=== PATIENT | female | born 1950 | race Two or more races ===

== ENCOUNTER 2021-01-20 11:17 | Emergency (ER) | payer MEDICARE, MEDICAID, SELFPAY ==
[2021-01-20 11:32] VITALS: BP 139/59; PULSE 62; RESP 18; TEMP 36.6; O2SAT 99; BMI 41.1
[2021-01-20 12:26] LABS: MANUAL DIFF FLAG NO
[2021-01-20 12:40] LABS: Basophils Absolute Auto 0.1 X10*3/uL (0.0-0.2); Basophils Percent Auto 0.4 % (0-2); Eosinophils Percent Auto 0.2 % (0-4); Hematocrit 36.6 % (37.0-47.0); Hemoglobin 11.9 g/dl (12.0-16.0); Imm Gran Abs Auto 0.05 X10*3/uL (0.00-0.03); Imm Gran Pct Auto 0.4 % (0.0-0.4); Lymphocytes Absolute Auto 1.7 X10*3/uL (1.2-4.9); Lymphocytes Percent Auto 13.6 % (20-40); Mean Corpuscular HGB Conc 32.5 g/dl (31.0-35.0); Mean Corpuscular Hemoglobin 25.8 pg (27.0-33.0); Mean Corpuscular Volume 79.2 fL (80.0-98.0); Mean Platelet Volume 10.3 fL (9.4-12.3); Monocytes Absolute Auto 0.6 X10*3/uL (0.1-1.2); Monocytes Percent Auto 4.7 % (2-11); Neutrophils Absolute Auto 9.8 x10*3/uL (2.0-8.3); Neutrophils Percent Auto 80.7 % (45-73); Platelet Count 391 X10*3/uL (160-400); Red Blood Count 4.62 X10*6/uL (4.20-5.50); White Blood Count 12.1 X10*3/uL (4.8-10.8)
[2021-01-20] MEDS: 0.9 % Sodium Chloride 1,000 ML 999 ML IVCONT (12:50)
[2021-01-20 12:57] LABS: Alanine Aminotransferase 20 U/L (0-31); Albumin Level 4.4 g/dL (3.5-5.0); Alkaline Phosphatase 147 U/L (39-117); Anion Gap 16 (12-20); Aspartate Amino Transferase 22 U/L (5-31); Bilirubin Total 0.5 mg/dL (0.0-1.0); Blood Urea Nitrogen 6 mg/dL (9-16); Calcium 9.9 mg/dL (8.4-10.2); Carbon Dioxide 23 mmol/L (22-29); Chloride 101 mmol/L (96-108); Estimated Glomerular Filt Rate > 60; Glucose Random 122 mg/dL (60-115); Potassium 4.2 mmol/L (3.3-5.1); Sodium 136 mmol/L (135-145); Total Protein 7.1 g/dL (6.5-8.0)
[2021-01-20 13:03] LABS: Appearance Urine CLEAR; Color Urine YELLOW; Glucose Urine UA NEG (NEG); Leukocyte Esterase Urine NEG (NEG); Nitrite Urine NEG (NEG); Specific Gravity - Urine <= 1.005 (1.005-1.025); Urine Blood NEG (NEG); Urine Ketones NEG (NEG); Urine Protein NEG (NEG-TRACE)
--- NOTE | 2021-01-20 13:31 | ED.FEMALEGU ---
HPI - Female Genitourinary General Chief complaint: Urogenital-Female Stated complaint: urinary infection Time Seen by Provider: 01/20/21 11:44 Source: patient and family Mode of arrival: ambulatory Limitations: language barrier (Citizen Of [place]-speaking) and other (Poor historians) History of Present Illness HPI Narrative: 70-year-old female who is Citizen Of [place]-speaking presenting to the ED with her daughter at bedside with complaints of ?I have a urinary tract infection?. She reports over the past 2 weeks she has had chills, a decreased appetite with decreased p.o. intake and she believes she might have a urinary tract infection. 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 then they sent her home on Macrobid. The daughter at bedside and the patient are very poor historians. She also reports that she was also seen at another hospital and had a full cardiac workup and was discharged because everything was negative. She reports to me that she believes that she might need IV antibiotics for the urinary tract infection that she currently has. She denies any measured fevers, dizziness, changes in vision, chest pain, palpitations, shortness of breath, dyspnea on exertion, orthopnea, abdominal pain, hematuria, back pain, rashes, abnormal vaginal discharge, recent travel sick contacts or any other symptoms complaints or concerns at this time. MD elicited complaint: UTI Related Data Allergies Allergy/AdvReac Type Severity Reaction Status Date / Time No Known Allergies Allergy Verified 01/20/21 11:53 Review of Systems Review of Systems: Constitutional : No Weight loss, No Fever, + Chills, No Night Sweats, No Fatigue, No Malaise ENT/Mouth : No Hearing loss, No Ear Pain, No Nasal Congestion, No Sinus Pain, No Hoarseness, No sore throat, No Rhinorrhea, No Swallowing Difficulty Eyes: No Eye Pain, No Swelling, No Redness, No Foreign Body, No Discharge, No Vision Changes Cardiovascular : No Chest Pain, No SOB, No Dyspnea on Exertion, No Orthopnea, No Edema, No Palpitations Respiratory : No Cough, No Sputum, No Wheezing, No Smoke Exposure, No Dyspnea Gastrointestinal : No Nausea, No Vomiting, No Diarrhea, No Constipation, No abdominal Pain, No Hematochezia, No Melena Genitourinary : + uti, no irregular bleeding, No Dysuria, No Urinary Frequency, No Hematuria, No Urinary Incontinence, No Urgency, No Flank Pain, No Urinary Flow Changes, No Hesitancy Musculoskeletal : No joint pain, No Myalgias, No Joint Swelling Skin : No Skin Lesions, No rash Neuro : + General weakness, No Focal weakness, No Numbness, No Paresthesias, No Loss of Consciousness, No Dizziness, No Headache Psych : No Anxiety/Panic, No Depression, No SI/HI/AH/VH, No Social Issues, Heme/Lymph: No Bruising, No Bleeding,No Lymphadenopathy Endocrine : No Polyuria, No Polydipsia, No Temperature Intolerance Yes all other systems are reviewed and are negative [facility] Past Medical History Attestation statement: The following information was validated with the patient. Social History Social History Advance Directives: No Advance Directives Information Provided: Yes Physical Exam Vital Signs: Vital Signs: Last Vital Signs Temp 97.8 F 01/20/21 11:32 Pulse 62 01/20/21 11:32 Resp 18 01/20/21 11:32 BP 139/59 L 01/20/21 11:32 Pulse Ox 99 01/20/21 11:32 Body Mass Index 41.1 vital signs have been reviewed as normal and appeared to be correct. Blood pressure 139/59. Heart rate normal. Respiration rate normal. Temperature normal. Oxygen saturation normal. Appearance: Alert. Oriented X3. No acute distress. Head: Normal external exam. Normocephalic. Atraumatic. Eyes: PERRLA. EOMI. Conjunctiva and sclera normal. Eyelids normal. ENT: Pharynx normal. Uvula midline. Moist mucous membranes. No trismus noted. No drooling noted. No muffled voice noted. Neck: Normal inspection. Neck supple. FROM. No adenopathy. Thyroid Normal. No meningeal signs. No neck mass noted. CVS: Normal heart rate and rhythm. Heart sound normal. Pulses normal throughout. No murmurs/rales/gallops. Respiratory: No respiratory distress. Painless inspiration. Breath sounds normal. No wheezes/rales/rhonchi noted. Chest nontender. No accessory muscle usage noted or decreased air movement noted. Abdomen: Soft and nontender. Bowel sounds normal in all 4 quadrants. No distention noted. No organomegaly noted. No visible injury noted. Back: No CVA tenderness. Full range of motion noted. No rashes/lesion/induration/fluctuance or signs of infection noted. Skin: Skin warm and dry. Normal skin color. Normal skin turgor. No rashes/lesions/lacerations noted. Extremities: Extremities exhibit normal range of motion. Extremities nontender. Neuro: Oriented X 3. No motor deficit. No sensory deficit. Reflexes normal. Normal steady gait. No focal neuro deficits noted. Vascular: + radial pulses Normal cap refill. No cyanosis noted to upper extremity nails Course Course Course Narrative: 12:15pm - 70-year-old female who is Citizen Of [place]-speaking presenting to the ED with her daughter at bedside with complaints of ?I have a urinary tract infection?. She reports over the past 2 weeks she has had chills, a decreased appetite with decreased p.o. intake and she believes she might have a urinary tract infection. 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 then they sent her home on Macrobid. The daughter at bedside and the patient are very poor historians. She also reports that she was also seen at another hospital and had a full cardiac workup and was discharged because everything was negative. She reports to me that she believes that she might need IV antibiotics for the urinary tract infection that she currently has. Plan: Will obtain labs, UA and a CT scan abdomen and pelvis with IV contrast and provide a L of IV fluids and re-evaluate. Reevaluation(s) Reevaluation #1: - labs obtained and patient with an elevated white blood cell count at 12,000. Mild anemia. BUN 6. Random glucose 122. Alkaline phosphate 147. Otherwise all other labs are within normal limits. UA is completely clean no evidence of UTI. - during the visit here to the patient and daughter requested to see me again so I can speak to the daughters friend who is a pediatrician/medical doctor and I got on the phone and the pediatrician/medical doctor Dr. Hendrix explained to me that she believed that the patient had sepsis because she was having chills and was currently on antibiotics for UTI and she believes that the patient needed to receive IV antibiotics. She also started to say that the patient was telling her she was having dizziness/palpitations and chest pain although the patient was screaming in the background that she never told anyone that she was having dizziness, palpitations or chest pain. So I explained to the daughter that I did not feel comfortable continue talking to this pediatrician/medical doctor when she is not caring for her mother and she is telling me completely different symptoms that the patient is denying in front of myself and the daughter. - then I showed all the results to the daughter and the patient and I explained to him that she has an elevated white blood cell count that is nonspecific that she has mild anemia which could be nonspecific. All her other labs were normal and she does not have an evidence of UTI - then the mother reported that she is unsure why she is having the symptoms I explained to her that if she went to 3 other hospitals and they told her at the 2 other hospitals that everything else was normal and she needs to follow up with her primary care provider for further evaluation treatment. I explained to her that there is no evidence of UTI therefore I do not believe she needs to take the antibiotics but that would be up to her discretion. I explained to her that we are still waiting for her to have a CT scan of her abdomen and the mother reported to me that she is unsure why she is even having the CT scan of her abdomen and she is not even having abdominal pain I explained to her that she told them in triage she was having abdominal pain and she told me that she never told them that therefore at this time they are requesting for the CT scan to be canceled and to be discharged. I explained to her to return if any new or worsening symptoms to follow up her primary care provider. Patient and daughter at bedside understand and agree this plan. Time: 13:38 MDM - Female Genitourinary Medical Records Attestation: I reviewed the patient's medical records. Lab Data Attestation: I reviewed the patient's lab results. Result diagrams: 01/20/21 12:15 01/20/21 12:15 Labs: Lab Results 01/20/21 01/20/21 01/20/21 Range/Units 12:15 12:15 12:20 WBC 12.1 H (4.8-10.8) X10*3/uL RBC 4.62 (4.20-5.50) X10*6/uL Hgb 11.9 L (12.0-16.0) g/dl Hct 36.6 L (37.0-47.0) % MCV 79.2 L (80.0-98.0) fL MCH 25.8 L (27.0-33.0) pg MCHC 32.5 (31.0-35.0) g/dl RDW 16.0 (11.0-16.0) % Plt Count 391 (160-400) X10*3/uL MPV 10.3 (9.4-12.3) fL Immature Gran % (Auto) 0.4 (0.0-0.4) % Neut % (Auto) 80.7 H (45-73) % Lymph % (Auto) 13.6 L (20-40) % [place] % (Auto) 4.7 (2-11) % Eos % (Auto) 0.2 (0-4) % Baso % (Auto) 0.4 (0-2) % Lymph # (Auto) 1.7 (1.2-4.9) X10*3/uL [place] # (Auto) 0.6 (0.1-1.2) X10*3/uL Eos # (Auto) 0.0 (0.0-0.4) X10*3/uL Baso # (Auto) 0.1 (0.0-0.2) X10*3/uL Abs Immat Gran (auto) 0.05 H (0.00-0.03) X10*3/uL Absolute Neuts (auto) 9.8 H (2.0-8.3) x10*3/uL Absolute Nucleated RBC 0.000 (0.0-0.012) X10*3/uL Nucleated RBC % (auto) 0.0 (0.0-0.2) /100WBC Sodium 136 (135-145) mmol/L Potassium 4.2 (3.3-5.1) mmol/L Chloride 101 (96-108) mmol/L Carbon Dioxide 23 (22-29) mmol/L Anion Gap 16 (12-20) BUN 6 L (9-16) mg/dL Creatinine 0.79 (0.5-1.4) mg/dL Estim Creat Clear Calc 81.0 Estimated GFR > 60 Random Glucose 122 H (60-115) mg/dL Calcium 9.9 (8.4-10.2) mg/dL Magnesium 2.0 (1.6-2.6) mg/dL Total Bilirubin 0.5 (0.0-1.0) mg/dL AST 22 (5-31) U/L ALT 20 (0-31) U/L Alkaline Phosphatase 147 H (39-117) U/L Total Protein 7.1 (6.5-8.0) g/dL Albumin 4.4 (3.5-5.0) g/dL Urine Color YELLOW Urine Appearance CLEAR Urine pH 6.0 (5.0-8.0) Ur Specific [place] <= 1.005 (1.005-1.025) Urine Protein NEG (NEG-TRACE) MG/DL Urine Glucose (UA) NEG (NEG) MG/DL Urine Ketones NEG (NEG) MG/DL Urine Blood NEG (NEG) Urine Nitrite NEG (NEG) Ur Leukocyte Esterase NEG (NEG) Urine RBC Urine WBC Urine WBC Clumps Ur Squamous Epith Cells Ur Renal Epithelial Cell [place] Biurate Crystals Calcium Carbonate Cryst Calcium Phosphate Cryst Calcium Oxalate Crystal Leucine Crystals Cystine Crystals Uric Acid Crystals Triple Phos Crystals Talc Crystals Tyrosine Crystals Other Crystals Amorphous Sediment Urine Bacteria Epithelial Casts Fatty Casts Hyaline Casts Granular Casts Waxy Casts RBC Casts WBC Casts Other Casts Urine Mucus Urine Trichomonas Urine Yeast Urine Sperm Ur Oval Fat Bodies 01/20/21 Range/Units 12:20 WBC (4.8-10.8) X10*3/uL RBC (4.20-5.50) X10*6/uL Hgb (12.0-16.0) g/dl Hct (37.0-47.0) % MCV (80.0-98.0) fL MCH (27.0-33.0) pg MCHC (31.0-35.0) g/dl RDW (11.0-16.0) % Plt Count (160-400) X10*3/uL MPV (9.4-12.3) fL Immature Gran % (Auto) (0.0-0.4) % Neut % (Auto) (45-73) % Lymph % (Auto) (20-40) % [place] % (Auto) (2-11) % Eos % (Auto) (0-4) % Baso % (Auto) (0-2) % Lymph # (Auto) (1.2-4.9) X10*3/uL [place] # (Auto) (0.1-1.2) X10*3/uL Eos # (Auto) (0.0-0.4) X10*3/uL Baso # (Auto) (0.0-0.2) X10*3/uL Abs Immat Gran (auto) (0.00-0.03) X10*3/uL Absolute Neuts (auto) (2.0-8.3) x10*3/uL Absolute Nucleated RBC (0.0-0.012) X10*3/uL Nucleated RBC % (auto) (0.0-0.2) /100WBC Sodium (135-145) mmol/L Potassium (3.3-5.1) mmol/L Chloride (96-108) mmol/L Carbon Dioxide (22-29) mmol/L Anion Gap (12-20) BUN (9-16) mg/dL Creatinine (0.5-1.4) mg/dL Estim Creat Clear Calc Estimated GFR Random Glucose (60-115) mg/dL Calcium (8.4-10.2) mg/dL Magnesium (1.6-2.6) mg/dL Total Bilirubin (0.0-1.0) mg/dL AST (5-31) U/L ALT (0-31) U/L Alkaline Phosphatase (39-117) U/L Total Protein (6.5-8.0) g/dL Albumin (3.5-5.0) g/dL Urine Color Cancelled Urine Appearance Cancelled Urine pH Cancelled (5.0-8.0) Ur Specific [place] Cancelled (1.005-1.025) Urine Protein Cancelled (NEG-TRACE) MG/DL Urine Glucose (UA) Cancelled (NEG) MG/DL Urine Ketones Cancelled (NEG) MG/DL Urine Blood Cancelled (NEG) Urine Nitrite Cancelled (NEG) Ur Leukocyte Esterase Cancelled (NEG) Urine RBC Cancelled Urine WBC Cancelled Urine WBC Clumps Cancelled Ur Squamous Epith Cells Cancelled Ur Renal Epithelial Cell Cancelled [place] Biurate Crystals Cancelled Calcium Carbonate Cryst Cancelled Calcium Phosphate Cryst Cancelled Calcium Oxalate Crystal Cancelled Leucine Crystals Cancelled Cystine Crystals Cancelled Uric Acid Crystals Cancelled Triple Phos Crystals Cancelled [place] Crystals Cancelled Tyrosine Crystals Cancelled Other Crystals Cancelled Amorphous Sediment Cancelled Urine Bacteria Cancelled Epithelial Casts Cancelled Fatty Casts Cancelled Hyaline Casts Cancelled Granular Casts Cancelled Waxy Casts Cancelled RBC Casts Cancelled WBC Casts Cancelled Other Casts Cancelled Urine Mucus Cancelled Urine Trichomonas Cancelled Urine Yeast Cancelled Urine Sperm Cancelled Ur Oval Fat Bodies Cancelled Critical Care Time Critical Care Time Critical Care Time: Yes Total Critical Care Time: 60 Attestation: I personally attest to this time spent taking care of the patient Discharge Plan Discharge Clinical Impression: Normal exam Patient Disposition: Home, Self-Care Instructions: Normal Exam (ED) Referrals: Physician,Unknown J [Primary Care Provider] - 2 days (your pcp) Print Language: Citizen Of [place]
[2021-01-20 14:42] LABS: WBC Urine 0-2 /HPF (0-4)
[2021-01-20 14:43] LABS: RBC Urine 0 /HPF (0); Squamous Epithelial Cell Urine 1+ /LPF
== END 2021-01-20 13:48 | disposition home or self-care (01) ==
PROVIDERS: Physician Assistant Medical; Emergency Provider Emergency Medicine
DX: R30.0 Dysuria (principal); Z79.899 Other long term (current) drug therapy
CPT/HCPCS: 36415; 80053; 81001; 83735; 85025; 96360; 99284

== ENCOUNTER 2021-09-16 23:28 | Emergency (ER) | payer MEDICARE, MEDICAID, SELFPAY ==
[2021-09-16 23:49] VITALS: BP 133/67; PULSE 65; RESP 15; TEMP 37; O2SAT 99; BMI 40.8
[2021-09-17 00:09] LABS: MANUAL DIFF FLAG NO
[2021-09-17 00:14] LABS: Basophils Percent Auto 0.3 % (0-2); Eosinophils Absolute Auto 0.1 X10*3/uL (0.0-0.4); Eosinophils Percent Auto 0.7 % (0-4); Hematocrit 32.2 % (37.0-47.0); Imm Gran Abs Auto 0.06 X10*3/uL (0.00-0.03); Imm Gran Pct Auto 0.5 % (0.0-0.4); Lymphocytes Absolute Auto 2.3 X10*3/uL (1.2-4.9); Lymphocytes Percent Auto 19.5 % (20-40); Mean Corpuscular HGB Conc 31.1 g/dl (31.0-35.0); Mean Corpuscular Hemoglobin 21.8 pg (27.0-33.0); Mean Corpuscular Volume 70.3 fL (80.0-98.0); Mean Platelet Volume 9.8 fL (9.4-12.3); Monocytes Absolute Auto 0.9 X10*3/uL (0.1-1.2); Monocytes Percent Auto 7.3 % (2-11); Neutrophils Absolute Auto 8.3 x10*3/uL (2.0-8.3); Neutrophils Percent Auto 71.7 % (45-73); Platelet Count 393 X10*3/uL (160-400); Red Blood Count 4.58 X10*6/uL (4.20-5.50); White Blood Count 11.6 X10*3/uL (4.8-10.8)
[2021-09-17 00:21] LABS: COVID-19 Test Negative (Negative)
[2021-09-17 00:22] VITALS: BP 129/74; PULSE 60; RESP 20; TEMP 36.7; O2SAT 99
[2021-09-17 00:28] LABS: Alanine Aminotransferase 18 U/L (0-31); Albumin Level 4.1 g/dL (3.5-5.0); Alkaline Phosphatase 165 U/L (39-117); Anion Gap 13 (12-20); Aspartate Amino Transferase 18 U/L (5-31); Bilirubin Total 0.2 mg/dL (0.0-1.0); Blood Urea Nitrogen 12 mg/dL (9-16); Calcium 8.8 mg/dL (8.4-10.2); Carbon Dioxide 20 mmol/L (22-29); Chloride 100 mmol/L (96-108); Creatinine Clr Calc Pharmacy 81.6; Estimated Glomerular Filt Rate > 60; Glucose Random 109 mg/dL (60-115); Potassium 4.1 mmol/L (3.3-5.1); Sodium 129 mmol/L (135-145); Total Protein 6.7 g/dL (6.5-8.0)
--- NOTE | 2021-09-17 00:37 | ECG_ITS ---
Test Reason : ABDIMINAL PAIN Blood Pressure : / mmHG Vent. Rate : 059 BPM Atrial Rate : 059 BPM P-R Int : 234 ms QRS Dur : 084 ms QT Int : 422 ms P-R-T Axes : 051 002 031 degrees QTc Int : 417 ms Sinus bradycardia with 1st degree A-V block Otherwise normal ECG No previous ECGs available Referred By: Sharon Marsh Electronically Signed By:Jose Armando Diggs
--- NOTE | 2021-09-17 00:40 | ED_ITS ---
HPI - General Adult General Chief complaint: General Medical Stated complaint: fever, dry mouth, high bp, headache Time Seen by Provider: 09/17/21 00:20 Source: patient and family (son is interpreting declined medical laboratory assistant) Mode of arrival: ambulatory Limitations: no limitations History of Present Illness HPI narrative: 70 yo female with hx of HTN, DM, arthritis, depression - here with c/o earlier this evening she had a headache, felt nauseated, she had a dry mouth - she took her medications today. started losartan 50mg BID one week ago. Her BP around 10pm was high 180/100 so she took extra dose of 50mg losartan. She has no headache now but she states one time when she felt like this she was dehydrated and had a dry mouth MD complaint: feels dehydrated, BP high at home - took extra losartan Onset (ago): hour(s) (yesterday evening ) Location: head and mouth Severity: moderate Quality: dull Pain Consistency: now resolved Relieving factors: other (took extra 50mg losartan tonight) Exacerbating factors: none Associated symptoms: other (dry mouth, malaisea, nausea) Treatments prior to arrival: none Related Data Allergies Allergy/AdvReac Type Severity Reaction Status Date / Time ondansetron [From Zofran] AdvReac Rash Verified 09/16/21 23:54 Review of Systems Review of Systems: Constitutional : No Weight loss, No Fever, No Chills, pos Fatigue, pos Malaise ENT/Mouth : No sore throat, No Rhinorrhea Eyes: No Eye Pain, No Swelling, No Redness Cardiovascular : No Chest Pain, No SOB, No Dyspnea on Exertion, No Orthopnea, No Edema, No Palpitations Respiratory : No Cough, No Sputum, No Wheezing Gastrointestinal : pos Nausea, No Vomiting, No Diarrhea, No Constipation, No abdominal Pain, No Hematochezia, No Melena Genitourinary : No Dysuria, No Urinary Frequency, No Hematuria, Musculoskeletal : No joint pain, No Myalgias, No Joint Swelling Skin : No Skin Lesions, No rash Neuro : No Weakness, No Numbness, No Dizziness, pos Headache Psych : No Anxiety/Panic, No Depression Heme/Lymph: No Bruising, No Bleeding,No Lymphadenopathy Endocrine : No Polyuria, No Polydipsia All other systems reviewed and are negative [facility] Past Medical History Attestation statement: The following information was validated with the patient. Medical History Depression Diabetes HTN (hypertension) Social History Social History (Updated 09/17/21 @ 01:17 by Sharon Marsh DO) Patient Tobacco Use Status: Never used Tobacco Advance Directives: No Advance Directives Information Provided: No Physical Exam ED Vital Signs: Vital Signs - 24 hr 09/16/21 23:49 09/17/21 00:22 09/17/21 02:40 Temperature 98.6 F 98.1 F Pulse Rate 65 60 60 Respiratory Rate 15 20 16 Blood Pressure 133/67 129/74 119/71 Pulse Oximetry 99 99 98 Oxygen Delivery Method Room Air Room Air Room Air 09/17/21 04:41 09/17/21 07:11 Temperature 98.0 F Pulse Rate 62 64 Respiratory Rate 20 16 Blood Pressure 124/65 109/53 L Pulse Oximetry 99 98 Oxygen Delivery Method Room Air Room Air BMI result Body Mass Index 40.8 Appearance: Alert. Oriented X3. No acute distress. Eyes: Pupils equal, round and reactive to light. ENT: Pharynx normal. Neck: Normal inspection. Neck supple. CVS: Normal heart rate and rhythm. Pulses normal. Respiratory: No respiratory distress. Breath sounds normal. Abdomen: Soft and non-tender. Skin: Skin warm and dry. Normal skin color. Normal skin turgor. Extremities: No lower extremity edema. No calf ttp Neuro: Oriented X 3. No motor deficit. No sensory deficit. Course Course Course Narrative: Na low will give slow IVF and repeat now states she drank a lot of water 140 ounces today - suspect Na might be low due to increased water intake today given spec grav of urine Na up to 131 - urinated several times patient Na was up to 131 prior to fluids (IVF never infused) due to difficult IV stick - she urinated several times in the ED. Fluids given after Na 131 will repeat Na level - saline bolus infused over 4 -5+ hours. up to and from bathroom without issue several times bolus over 4 to 5 hours, she urinated several times suspect water intoxication from drinking so much I believe she corrected herself with urination. At this time her Na is normal she can be DC home. 131 to 137 over 5+ hours in the ED with flluids patient feels better stable for DC Medical Decision Making MDM Narrative Medical decision making narrative: 70 yo female with hx of HTN, DM, depression here with c/o feeling dehydrated with multiple vague symptoms - her BP now is down will need basic labs EKG, check chemistries. IVF ordered. Lab Data Result diagrams: 09/17/21 00:03 09/17/21 06:53 Labs: Lab Results 09/16/21 09/17/21 09/17/21 Range/Units 23:56 00:03 00:03 WBC 11.6 H (4.8-10.8) X10*3/uL RBC 4.58 (4.20-5.50) X10*6/uL Hgb 10.0 L (12.0-16.0) g/dl Hct 32.2 L (37.0-47.0) % MCV 70.3 L (80.0-98.0) fL MCH 21.8 L (27.0-33.0) pg MCHC 31.1 (31.0-35.0) g/dl RDW 18.0 H (11.0-16.0) % Plt Count 393 (160-400) X10*3/uL MPV 9.8 (9.4-12.3) fL Immature Gran % (Auto) 0.5 H (0.0-0.4) % Neut % (Auto) 71.7 (45-73) % Lymph % (Auto) 19.5 L (20-40) % [place] % (Auto) 7.3 (2-11) % Eos % (Auto) 0.7 (0-4) % Baso % (Auto) 0.3 (0-2) % Lymph # (Auto) 2.3 (1.2-4.9) X10*3/uL [place] # (Auto) 0.9 (0.1-1.2) X10*3/uL Eos # (Auto) 0.1 (0.0-0.4) X10*3/uL Baso # (Auto) 0.0 (0.0-0.2) X10*3/uL Abs Immat Gran (auto) 0.06 H (0.00-0.03) X10*3/uL Absolute Neuts (auto) 8.3 (2.0-8.3) x10*3/uL Absolute Nucleated RBC 0.000 (0.0-0.012) X10*3/uL Nucleated RBC % (auto) 0.0 (0.0-0.2) /100WBC Sodium 129 L (135-145) mmol/L Potassium 4.1 (3.3-5.1) mmol/L Chloride 100 (96-108) mmol/L Carbon Dioxide 20 L (22-29) mmol/L Anion Gap 13 (12-20) BUN 12 (9-16) mg/dL Creatinine 0.78 (0.5-1.4) mg/dL Estim Creat Clear Calc 81.6 Estimated GFR > 60 Random Glucose 109 (60-115) mg/dL Calcium 8.8 D (8.4-10.2) mg/dL Magnesium 1.7 (1.6-2.6) mg/dL Total Bilirubin 0.2 (0.0-1.0) mg/dL AST 18 (5-31) U/L ALT 18 (0-31) U/L Alkaline Phosphatase 165 H (39-117) U/L Troponin I High Sens (<3.5-17.0) ng/L Total Protein 6.7 (6.5-8.0) g/dL Albumin 4.1 (3.5-5.0) g/dL Lipase 30 (8-78) U/L Urine Color Urine Appearance Urine pH (5.0-8.0) Ur Specific [place] (1.005-1.025) Urine Protein (NEG-TRACE) MG/DL Urine Glucose (UA) (NEG) MG/DL Urine Ketones (NEG) MG/DL Urine Blood (NEG) Urine Nitrite (NEG) Ur Leukocyte Esterase (NEG) COVID-19 (GREGG) Negative (Negative) COVID-19 Clin Com See Note 09/17/21 09/17/21 09/17/21 Range/Units 00:07 01:18 02:37 WBC (4.8-10.8) X10*3/uL RBC (4.20-5.50) X10*6/uL Hgb (12.0-16.0) g/dl Hct (37.0-47.0) % MCV (80.0-98.0) fL MCH (27.0-33.0) pg MCHC (31.0-35.0) g/dl RDW (11.0-16.0) % Plt Count (160-400) X10*3/uL MPV (9.4-12.3) fL Immature Gran % (Auto) (0.0-0.4) % Neut % (Auto) (45-73) % Lymph % (Auto) (20-40) % [place] % (Auto) (2-11) % Eos % (Auto) (0-4) % Baso % (Auto) (0-2) % Lymph # (Auto) (1.2-4.9) X10*3/uL [place] # (Auto) (0.1-1.2) X10*3/uL Eos # (Auto) (0.0-0.4) X10*3/uL Baso # (Auto) (0.0-0.2) X10*3/uL Abs Immat Gran (auto) (0.00-0.03) X10*3/uL Absolute Neuts (auto) (2.0-8.3) x10*3/uL Absolute Nucleated RBC (0.0-0.012) X10*3/uL Nucleated RBC % (auto) (0.0-0.2) /100WBC Sodium 131 L (135-145) mmol/L Potassium (3.3-5.1) mmol/L Chloride (96-108) mmol/L Carbon Dioxide (22-29) mmol/L Anion Gap (12-20) BUN (9-16) mg/dL Creatinine (0.5-1.4) mg/dL Estim Creat Clear Calc Estimated GFR Random Glucose (60-115) mg/dL Calcium (8.4-10.2) mg/dL Magnesium (1.6-2.6) mg/dL Total Bilirubin (0.0-1.0) mg/dL AST (5-31) U/L ALT (0-31) U/L Alkaline Phosphatase (39-117) U/L Troponin I High Sens 5.3 (<3.5-17.0) ng/L Total Protein (6.5-8.0) g/dL Albumin (3.5-5.0) g/dL Lipase (8-78) U/L Urine Color STRAW Urine Appearance CLEAR Urine pH 6.5 (5.0-8.0) Ur Specific [place] <= 1.005 (1.005-1.025) Urine Protein NEG (NEG-TRACE) MG/DL Urine Glucose (UA) NEG (NEG) MG/DL Urine Ketones NEG (NEG) MG/DL Urine Blood NEG (NEG) Urine Nitrite NEG (NEG) Ur Leukocyte Esterase NEG (NEG) COVID-19 (GREGG) (Negative) COVID-19 Clin Com 09/17/21 Range/Units 06:53 WBC (4.8-10.8) X10*3/uL RBC (4.20-5.50) X10*6/uL Hgb (12.0-16.0) g/dl Hct (37.0-47.0) % MCV (80.0-98.0) fL MCH (27.0-33.0) pg MCHC (31.0-35.0) g/dl RDW (11.0-16.0) % Plt Count (160-400) X10*3/uL MPV (9.4-12.3) fL Immature Gran % (Auto) (0.0-0.4) % Neut % (Auto) (45-73) % Lymph % (Auto) (20-40) % [place] % (Auto) (2-11) % Eos % (Auto) (0-4) % Baso % (Auto) (0-2) % Lymph # (Auto) (1.2-4.9) X10*3/uL [place] # (Auto) (0.1-1.2) X10*3/uL Eos # (Auto) (0.0-0.4) X10*3/uL Baso # (Auto) (0.0-0.2) X10*3/uL Abs Immat Gran (auto) (0.00-0.03) X10*3/uL Absolute Neuts (auto) (2.0-8.3) x10*3/uL Absolute Nucleated RBC (0.0-0.012) X10*3/uL Nucleated RBC % (auto) (0.0-0.2) /100WBC Sodium 137 (135-145) mmol/L Potassium (3.3-5.1) mmol/L Chloride (96-108) mmol/L Carbon Dioxide (22-29) mmol/L Anion Gap (12-20) BUN (9-16) mg/dL Creatinine (0.5-1.4) mg/dL Estim Creat Clear Calc Estimated GFR Random Glucose (60-115) mg/dL Calcium (8.4-10.2) mg/dL Magnesium (1.6-2.6) mg/dL Total Bilirubin (0.0-1.0) mg/dL AST (5-31) U/L ALT (0-31) U/L Alkaline Phosphatase (39-117) U/L Troponin I High Sens (<3.5-17.0) ng/L Total Protein (6.5-8.0) g/dL Albumin (3.5-5.0) g/dL Lipase (8-78) U/L Urine Color Urine Appearance Urine pH (5.0-8.0) Ur Specific [place] (1.005-1.025) Urine Protein (NEG-TRACE) MG/DL Urine Glucose (UA) (NEG) MG/DL Urine Ketones (NEG) MG/DL Urine Blood (NEG) Urine Nitrite (NEG) Ur Leukocyte Esterase (NEG) COVID-19 (GREGG) (Negative) COVID-19 Clin Com ECG Data Attestation: I personally reviewed and interpreted this ECG as follows: Interpretation: Rate: 59 Rhythm: sinus bradycardia with 1st degree AVB Trail: normal Normal P waves. 1st degree AVB Normal QRS complex. ST T wave : normal no MONICA qTC: normal prior studies: no acute ischemia The study has been interpreted contemporaneously by me. . Discharge Plan Discharge Clinical Impression: Acute hyponatremia, Water intoxication Patient Disposition: Home, Self-Care Instructions: Hyponatremia (ED), Fluid Restriction (ED) Additional Instructions: return to ED for any worsening symptoms or concerns only take medications as prescribed do not take extra restrict water to 30 ounces of water today - you caused your sodium level to be low. recheck sodium with primary care on Monday hold losartan dose this AM regresar al servicio de urgencias por cualquier empeoramiento de los s?ntomas o inquietudes solo tome los medicamentos seg?n lo recetado no tome m?s restrinja el consumo de agua a 30 onzas de agua hoy: provoc? que [place] nivel de sodio fuera bajo. vuelva a controlar el sodio con atenci?n primaria el lunes mantenga la dosis de losart?n esta ma?bere Referrals: Physician,Darwin Contreras [Primary Care Provider] - 09/20/21 Jamari Jo MD [Physician] - 2 weeks (any provider in group cualquier proveedor en [facility]) Print Language: Irish
[2021-09-17 00:54] LABS: Lipase 30 U/L (8-78); Magnesium 1.7 mg/dL (1.6-2.6)
[2021-09-17 01:04] LABS: Troponin-I High Sensitivity 5.3 ng/L (<3.5-17.0)
[2021-09-17 01:23] LABS: Appearance Urine CLEAR; Color Urine STRAW; Glucose Urine UA NEG (NEG); Leukocyte Esterase Urine NEG (NEG); Nitrite Urine NEG (NEG); PH 6.5 (5.0-8.0); Specific Gravity - Urine <= 1.005 (1.005-1.025); Urine Blood NEG (NEG); Urine Ketones NEG (NEG); Urine Protein NEG (NEG-TRACE)
[2021-09-17] MEDS: 0.9 % Sodium Chloride 1,000 ML 999 ML IV (01:30)
[2021-09-17 02:40] VITALS: BP 119/71; PULSE 60; RESP 16; O2SAT 98
[2021-09-17 02:55] LABS: Sodium 131 mmol/L (135-145)
[2021-09-17 04:41] VITALS: BP 124/65; PULSE 62; RESP 20; O2SAT 99
[2021-09-17 07:11] VITALS: BP 109/53; PULSE 64; RESP 16; TEMP 36.7; O2SAT 98
[2021-09-17 07:14] LABS: Sodium 137 mmol/L (135-145)
== END 2021-09-17 08:56 | disposition home or self-care (01) ==
PROVIDERS: Emergency Medicine; Emergency Provider Emergency Medicine Emergency Medical Services
DX: E87.1 Hypo-osmolality and hyponatremia (principal); E87.79 Other fluid overload; R51.9 Headache, unspecified; I10 Essential (primary) hypertension; E11.9 Type 2 diabetes mellitus without complications; Z20.822 Contact with and (suspected) exposure to COVID-19
CPT/HCPCS: 36415; 80053; 81003; 83690; 83735; 84295; 84484; 85025; 87635; 93005; 96360; 99284

== ENCOUNTER 2021-09-19 21:16 | Emergency (ER) | payer MEDICARE, MEDICAID, SELFPAY ==
--- NOTE | ~2021-09-19 | CT_ITS ---
EXAMINATION: CT HEAD WITHOUT CONTRAST CLINICAL INFORMATION: Dizziness COMPARISON: None TECHNIQUE: Contiguous axial imaging was performed from the skull base to vertex without intravenous administration of contrast. This CT examination was performed using dose optimization techniques as appropriate, variously including the following: *Automated exposure control *Adjustment of mA and/or kV according to patient size (this includes techniques or standardized protocols for targeted exams where dose is matched to indication/reason for exam; i.e. extremities or head) *Use of iterative reconstruction technique DLP: 608 mGy-cm FINDINGS: There is no evidence of acute intracranial hemorrhage or territorial infarction. No abnormal mass effect or midline shift is seen. Mcca[place]y to white matter differentiation is well preserved. No extra-axial fluid collections are identified. The ventricles are normal in size. There is no abnormal attenuation within the brain parenchyma. The osseous structures and soft tissues are normal. 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 The mastoid air cells are well-aerated. CT/CT head/brain wo con IMPRESSION: No acute intracranial pathology.
[2021-09-19 21:28] VITALS: BP 139/86; PULSE 65; RESP 18; TEMP 37.2; O2SAT 96; BMI 40.8
--- NOTE | 2021-09-19 22:32 | ED.GENADULT ---
HPI - General Adult General Chief complaint: Recheck/Abnormal Lab/Rx Stated complaint: high Blood Pressure Time Seen by Provider: 09/19/21 22:32 Source: patient and historic interpreter Mode of arrival: ambulatory Limitations: language barrier History of Present Illness HPI narrative: Patient is a 70 year old female presenting to the emergency department today requesting to have her blood pressure checked. Patient states that prior to her taking her blood pressure medication, her blood pressure was very high and she felt dizzy and had a headache. However, after she took her blood pressure medication, her symptoms resolved and her blood pressure was much better. Patient denies any current dizziness, lightheadedness, abdominal pain, nausea, vomiting, fever, chills, blurry vision, double vision, loss of vision, chest pain, difficulty breathing, shortness of breath, back pain, night sweats, pain with urination, increased urinary frequency, increased urinary urgency, blood in her urine or stool, syncope or a near syncopal episode, recent trauma or falls, bowel incontinence, bladder incontinence, bowel retention, bladder retention, or any other complaints at this time. Onset (ago): minute(s) Radiation: non-radiation Severity: mild Pain Consistency: now resolved Relieving factors: none Exacerbating factors: none Associated symptoms: denies other symptoms Treatments prior to arrival: none Related Data Allergies Allergy/AdvReac Type Severity Reaction Status Date / Time ondansetron [From Zofran] AdvReac Rash Verified 09/19/21 21:27 Review of Systems Constitutional: Constitutional: Reports no additional constitutional complaints, Denies chills, Denies fever(s) and Denies night sweats Eyes: Eyes: Reports no additional eye complaints, Denies blurry vision, Denies change in vision, Denies diplopia, Denies eye discharge, Denies loss of vision and Denies eye pain ENT: Denies dizziness Cardiovascular: Cardiovascular: Reports no additional cardiovascular complaints, Denies chest pain, Denies lightheadedness, Denies Loss of Consciousness and Denies dyspnea Respiratory: Respiratory: Reports no additional respiratory complaints and Denies dyspnea Gastrointestinal: Gastrointestinal: Reports no additional gastrointestinal complaints, Denies abdominal pain, Denies melena, Denies hematochezia, Denies change in bowel habits and Denies change in stool character Genitourinary: Genitourinary: Denies hematuria, Denies urinary frequency, Denies dysuria, Denies urinary incontinence, Denies urinary hesitancy and Denies urinary urgency Musculoskeletal: Musculoskeletal: Reports no additional musculoskeletal complaints, Denies numbness and Denies tingling Neurologic: Denies dizziness, Denies loss of vision, Denies numbness and Denies tingling Psychiatric: Psychiatric: Reports no additional psychiatric complaints Endocrine: Endocrine: Reports no additional endocrine complaints Hematologic/Lymphatic: Hematologic/Lymphatic: Reports no additional hematologic/lymphatic complaints Allergic/Immunologic: Allergic/Immunologic: Reports no additional allergic/immunologic complaints [facility] Past Medical History Attestation statement: The following information was validated with the patient. Source: old records reviewed Medical History Depression Diabetes HTN (hypertension) Social History Social History Patient Tobacco Use Status: Never used Tobacco Advance Directives: No Advance Directives Information Provided: No Physical Exam ED Vital Signs: Vital Signs - 24 hr 09/19/21 21:28 09/20/21 00:00 09/20/21 01:22 Temperature 98.9 F Pulse Rate 65 60 66 Respiratory Rate 18 13 18 Blood Pressure 139/86 133/61 158/74 H Pulse Oximetry 96 98 Oxygen Delivery Method Room Air Room Air BMI result Body Mass Index 40.8 Const General: cooperative, no acute distress, alert and awake Nutritional Appearance: well nourished Orientation/consciousness: patient oriented x3 Limitations: no limitations [facility] Head: Yes normal to inspection and Yes atraumatic Ears: hearing grossly normal bilaterally and external ears normal General nose exam: Normal external nose present, no nasal discharge noted and no epistaxis Face and sinus: Yes normal facial exam, No abrasion and No laceration Mouth: Normal oral and palatal mucosa present, no drooling and no muffled voice Eyes General: appearance normal, both eyes and all related structures Periorbital: periorbital findings normal Eyelids: Yes eyelids normal Conjunctivae: conjunctivae normal Pupils: Equal, round and reactive pupils present EOM: EOMs intact bilaterally Neck Neck: Yes normal visual inspection, Yes full ROM and Yes no lymphadenopathy Chest Chest palpation & inspection: normal inspection of the chest Resp Effort & Inspection: normal respiratory effort and able to speak in complete sentences Auscultation: clear to auscultation bilaterally Cardio Rate: regular rate Rhythm: regular rhythm GI Inspection: Yes normal to inspection Neuro General: patient oriented x3 and moves all extremities Cranial nerves: Yes Equal, round and reactive pupils present Cognition (Neuro): normal cognition Motor exam (neuro): 5/5 motor strength present throughout Sensory Exam: Normal double simultaneous stimulation for sensation Coordination: [id number] test normal Extrem General: Yes normal to inspection, Yes full ROM and Yes capillary refill normal Psych Appearance: grossly normal Mental Status: mental status grossly normal Affect: normal affect Attitude: cooperative Thought process: Normal thought process present Thought content: Normal thought content present Insight: Good insight present (Psych) Medical Decision Making MDM Narrative Medical decision making narrative: Patient is a 70 year old female presenting to the emergency department today requesting blood pressure evaluation. Patient's physical exam was unremarkable. Patient's blood work showed a slightly elevated WBC of 11.9 however, this seems to be chronically elevated in this patient. Patient's EKG was unremarkable. Patient's head CT showed no acute process. I explained my physical exam findings as well as all test results to the patient. I answered all questions asked by the patient. I stressed the importance of the patient taking her medication as prescribed. I stressed the importance of the patient following up with her primary care provider. I stressed the importance of the patient returning to the emergency department immediately if her symptoms were to worsen or if she were to develop any dizziness, shortness of breath, difficulty breathing, chest pain, blurry vision, loss of vision, nausea, vomiting, abdominal pain, fever, chills, back pain, or any other complaints. Patient verbalized agreement and understanding with this treatment plan and discharge. Differential Diagnosis Differential Diagnosis: History of HTN Medical Records Medical records reviewed: Yes I reviewed the patient's medical records. Lab Data Lab results reviewed: Yes I reviewed the patient's lab results. Result diagrams: 09/19/21 23:00 09/19/21 23:00 Labs: Lab Results 09/19/21 09/19/21 Range/Units 23:00 23:00 WBC 11.9 H (4.8-10.8) X10*3/uL RBC 4.60 (4.20-5.50) X10*6/uL Hgb 10.0 L (12.0-16.0) g/dl Hct 32.9 L (37.0-47.0) % MCV 71.5 L (80.0-98.0) fL MCH 21.7 L (27.0-33.0) pg MCHC 30.4 L (31.0-35.0) g/dl RDW 18.6 H (11.0-16.0) % Plt Count 371 (160-400) X10*3/uL MPV 9.7 (9.4-12.3) fL Immature Gran % (Auto) 0.4 (0.0-0.4) % Neut % (Auto) 73.7 H (45-73) % Lymph % (Auto) 18.4 L (20-40) % [place] % (Auto) 6.4 (2-11) % Eos % (Auto) 0.8 (0-4) % Baso % (Auto) 0.3 (0-2) % Lymph # (Auto) 2.2 (1.2-4.9) X10*3/uL [place] # (Auto) 0.8 (0.1-1.2) X10*3/uL Eos # (Auto) 0.1 (0.0-0.4) X10*3/uL Baso # (Auto) 0.0 (0.0-0.2) X10*3/uL Abs Immat Gran (auto) 0.05 H (0.00-0.03) X10*3/uL Absolute Neuts (auto) 8.8 H (2.0-8.3) x10*3/uL Absolute Nucleated RBC 0.000 (0.0-0.012) X10*3/uL Nucleated RBC % (auto) 0.0 (0.0-0.2) /100WBC Sodium 138 (135-145) mmol/L Potassium 4.1 (3.3-5.1) mmol/L Chloride 107 (96-108) mmol/L Carbon Dioxide 22 (22-29) mmol/L Anion Gap 13 (12-20) BUN 17 H (9-16) mg/dL Creatinine 0.80 (0.5-1.4) mg/dL Estim Creat Clear Calc 79.6 Estimated GFR > 60 Random Glucose 130 H (60-115) mg/dL Calcium 9.3 (8.4-10.2) mg/dL Magnesium 1.8 (1.6-2.6) mg/dL Total Bilirubin < 0.2 (0.0-1.0) mg/dL AST 19 (5-31) U/L ALT 19 (0-31) U/L Alkaline Phosphatase 174 H (39-117) U/L Total Protein 7.0 (6.5-8.0) g/dL Albumin 4.0 (3.5-5.0) g/dL Imaging Data CT scan - head: Attestation: I personally reviewed and interpreted this imaging study as follows: My impression: No acute process. Radiologist's impression: EXAMINATION: CT HEAD WITHOUT CONTRAST CLINICAL INFORMATION: Dizziness? COMPARISON: None TECHNIQUE: Contiguous axial imaging was performed from the skull base to vertex without intravenous administration of contrast. This CT examination was performed using dose optimization techniques as appropriate, variously including the following: *Automated exposure control *Adjustment of mA and/or kV according to patient size (this includes techniques or standardized protocols for targeted exams where dose is matched to indication/reason for exam; i.e. extremities or head) *Use of iterative reconstruction technique DLP: 608 mGy-cm FINDINGS: There is no evidence of acute intracranial hemorrhage or territorial infarction. No abnormal mass effect or midline shift is seen. [place] to white matter differentiation is well preserved. No extra-axial fluid collections are identified. The ventricles are normal in size. There is no abnormal attenuation within the brain parenchyma. The osseous structures and soft tissues are normal. 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 The mastoid air cells are well-aerated. ? CT/CT head/brain wo con IMPRESSION: No acute intracranial pathology. Dictated By: Vickey Mckinley MD Signed By: Electronically signed by Vickey Mckinley MD 09/19/21 [id number] ECG Data Attestation: I personally reviewed and interpreted this ECG as follows: Prior ECG tracings: available for review Interpretation: Vent. Rate: 067 BPM ? ? Atrial Rate: 067 BPM P-R Int: 218 ms? QRS Dur: 080 ms QT Int: 420 ms ? ? ? P-R-T Axes: 051 000 035 degrees QTc Int: 443 ms ? Sinus rhythm with 1st degree A-V block Minimal voltage criteria for LVH, may be normal variant ( R in aVL ) Borderline ECG When compared with ECG of 17-SEP-2021 00:48, No significant change was found DD/ [id number] Discharge Plan Discharge Clinical Impression: History of hypertension Patient Disposition: Home, Self-Care Instructions: Hypertension (ED) Additional Instructions: Follow up with your primary care provider. Return to the emergency department immediately if your symptoms worsen or if you develop any dizziness, shortness of breath, difficulty breathing, chest pain, blurry vision, loss of vision, nausea, vomiting, abdominal pain, fever, chills, back pain, or any other complaints. Referrals: [facility] [place] [facility] [Provider Group] (Call to establish and follow up with a primary care provider. If you already have a primary care provider, please follow up with them. ) [facility] [place] Primary Care, Nicolás [Provider Group] (Call to establish and follow up with a primary care provider. If you already have a primary care provider, please follow up with them. ) [facility] [place] Primary Care,Miki [Provider Group] (Call to establish and follow up with a primary care provider. If you already have a primary care provider, please follow up with them. ) Interventions: ED Discharge Assessment Last Done: 09/20/21 01:25 Discharge Date/Time: 09/20/21 01:29 Print Language: Welsh
--- NOTE | 2021-09-19 22:33 | ECG_ITS ---
Test Reason : DIZZINESS Blood Pressure : / mmHG Vent. Rate : 067 BPM Atrial Rate : 067 BPM P-R Int : 218 ms QRS Dur : 080 ms QT Int : 420 ms P-R-T Axes : 051 000 035 degrees QTc Int : 443 ms Sinus rhythm with 1st degree A-V block Minimal voltage criteria for LVH, may be normal variant ( R in aVL ) Borderline ECG When compared with ECG of 17-SEP-2021 00:48, No significant change was found Referred By: Marita Burden Electronically Signed By:ZARINA ENAMORADO
[2021-09-19 23:04] LABS: MANUAL DIFF FLAG NO
[2021-09-19 23:07] LABS: Basophils Percent Auto 0.3 % (0-2); Eosinophils Absolute Auto 0.1 X10*3/uL (0.0-0.4); Eosinophils Percent Auto 0.8 % (0-4); Hematocrit 32.9 % (37.0-47.0); Imm Gran Abs Auto 0.05 X10*3/uL (0.00-0.03); Imm Gran Pct Auto 0.4 % (0.0-0.4); Lymphocytes Absolute Auto 2.2 X10*3/uL (1.2-4.9); Lymphocytes Percent Auto 18.4 % (20-40); Mean Corpuscular HGB Conc 30.4 g/dl (31.0-35.0); Mean Corpuscular Hemoglobin 21.7 pg (27.0-33.0); Mean Corpuscular Volume 71.5 fL (80.0-98.0); Mean Platelet Volume 9.7 fL (9.4-12.3); Monocytes Absolute Auto 0.8 X10*3/uL (0.1-1.2); Monocytes Percent Auto 6.4 % (2-11); Neutrophils Absolute Auto 8.8 x10*3/uL (2.0-8.3); Neutrophils Percent Auto 73.7 % (45-73); Platelet Count 371 X10*3/uL (160-400); Red Cell Distribution Width 18.6 % (11.0-16.0); White Blood Count 11.9 X10*3/uL (4.8-10.8)
[2021-09-19 23:25] LABS: Alanine Aminotransferase 19 U/L (0-31); Alkaline Phosphatase 174 U/L (39-117); Anion Gap 13 (12-20); Aspartate Amino Transferase 19 U/L (5-31); Bilirubin Total < 0.2 mg/dL (0.0-1.0); Blood Urea Nitrogen 17 mg/dL (9-16); Calcium 9.3 mg/dL (8.4-10.2); Carbon Dioxide 22 mmol/L (22-29); Chloride 107 mmol/L (96-108); Creatinine Clr Calc Pharmacy 79.6; Estimated Glomerular Filt Rate > 60; Glucose Random 130 mg/dL (60-115); Magnesium 1.8 mg/dL (1.6-2.6); Potassium 4.1 mmol/L (3.3-5.1); Sodium 138 mmol/L (135-145)
[2021-09-20] VITALS: BP 133/61; PULSE 60; RESP 13; O2SAT 98
[2021-09-20 01:22] VITALS: BP 158/74; PULSE 66; RESP 18
== END 2021-09-20 01:29 | disposition home or self-care (01) ==
PROVIDERS: Physician Assistant Medical; Emergency Provider Internal Medicine
DX: R79.89 Other specified abnormal findings of blood chemistry (principal); R42 Dizziness and giddiness; I10 Essential (primary) hypertension; Z79.899 Other long term (current) drug therapy
CPT/HCPCS: 36415; 70450; 80053; 83735; 85025; 93005; 99284

== ENCOUNTER 2021-09-22 17:44 | Emergency (ER) | payer MEDICARE, MEDICAID, SELFPAY ==
--- NOTE | ~2021-09-22 | XR_ITS ---
EXAMINATION: XR CHEST CLINICAL INFORMATION: Chest pain COMPARISON: None TECHNIQUE: Frontal view of the chest was obtained. FINDINGS: No significant abnormality is noted involving the heart, lungs, mediastinum, bony thorax or soft tissues. XR/XR chest 1V IMPRESSION: Unremarkable examination.
[2021-09-22 17:56] VITALS: BP 158/51; PULSE 93; RESP 18; TEMP 36.8; O2SAT 97; BMI 41.3
--- NOTE | 2021-09-22 17:59 | ECG_ITS ---
Test Reason : HYPERTENTION Blood Pressure : / mmHG Vent. Rate : 069 BPM Atrial Rate : 069 BPM P-R Int : 214 ms QRS Dur : 084 ms QT Int : 396 ms P-R-T Axes : 040 -11 032 degrees QTc Int : 424 ms Sinus rhythm with 1st degree A-V block Minimal voltage criteria for LVH, may be normal variant ( R in aVL ) Borderline ECG When compared with ECG of 20-SEP-2021 00:20, No significant change was found Referred By: Generic ED Physician Electronically Signed By:ZARINA ENAMORADO
[2021-09-22 20:05] LABS: MANUAL DIFF FLAG NO
[2021-09-22 20:06] LABS: Basophils Percent Auto 0.3 % (0-2); Eosinophils Absolute Auto 0.1 X10*3/uL (0.0-0.4); Eosinophils Percent Auto 0.4 % (0-4); Hematocrit 34.3 % (37.0-47.0); Hemoglobin 10.3 g/dl (12.0-16.0); Imm Gran Abs Auto 0.04 X10*3/uL (0.00-0.03); Imm Gran Pct Auto 0.3 % (0.0-0.4); Lymphocytes Absolute Auto 2.2 X10*3/uL (1.2-4.9); Mean Corpuscular Hemoglobin 21.7 pg (27.0-33.0); Mean Corpuscular Volume 72.4 fL (80.0-98.0); Monocytes Absolute Auto 0.8 X10*3/uL (0.1-1.2); Monocytes Percent Auto 5.7 % (2-11); Neutrophils Absolute Auto 10.7 x10*3/uL (2.0-8.3); Neutrophils Percent Auto 77.3 % (45-73); Platelet Count 377 X10*3/uL (160-400); Red Blood Count 4.74 X10*6/uL (4.20-5.50); Red Cell Distribution Width 18.7 % (11.0-16.0); White Blood Count 13.8 X10*3/uL (4.8-10.8)
[2021-09-22 20:20] LABS: Anion Gap 15 (12-20); Blood Urea Nitrogen 13 mg/dL (9-16); Calcium 9.5 mg/dL (8.4-10.2); Carbon Dioxide 23 mmol/L (22-29); Chloride 105 mmol/L (96-108); Creatinine Clr Calc Pharmacy 85.5; Estimated Glomerular Filt Rate > 60; Glucose Random 104 mg/dL (60-115); Potassium 4.3 mmol/L (3.3-5.1); Sodium 139 mmol/L (135-145)
[2021-09-22 20:27] LABS: Troponin-I High Sensitivity 6.3 ng/L (<3.5-17.0)
--- NOTE | 2021-09-22 22:43 | ED.CHESTPAIN ---
HPI - Chest Pain General Chief Complaint: Chest Pain Stated Complaint: high BP Time Seen by Provider: 09/22/21 22:43 Source: patient Mode of arrival: ambulatory Limitations: language barrier (Citizen Of [place] speaking only) History of Present Illness HPI narrative: 70-year-old female who presents emergency department for evaluation of elevated blood pressure, chest pain, left shoulder pain, abdominal pain. Patient states that around 17:00 prior to coming to the emergency department she developed a burning sensation under her left breast. She states that the sensation was constant and was 6/10 at its worst. She states she felt that sensation in her left shoulder as well. She had associated nausea with no vomiting. She states she then developed a headache. She states the headache was a throbbing sensation located throughout her head, the headache was moderate in intensity. She also states that she had a burning sensation in her epigastric area of her abdomen. She checked her blood pressure and the monitor registered too high to record her reading. The patient was concerned about her elevated blood pressure in her symptoms she came to the emergency department to be seen. She denied fever, chills, rhinorrhea, sore throat, cough. She states that she has been feeling short of breath over the past several days. She denied dyspnea on exertion. The patient was seen in the emergency department on 09/19/2021 for elevated blood pressure and headache. At that time her workup was negative and she had a negative CT scan of the head. The patient states that she was on lisinopril and approximately 2 months prior her provider change her to losartan 50 mg twice a day. She believes that the losartan is not making her feel well and is not controlling her blood pressure. She also takes metoprolol tartrate 50 mg twice a day for palpitation and blood pressure. She states she has been compliant with his medications. MD complaint: chest pain Pertinent past history: other (Hypertension) Onset (ago): minute(s) (30 minutes prior to arrival) Timing of current episode: constant Prior episodes: Yes Onset: during rest Pain location: left chest Pain radiation: left shoulder Severity: moderate Pain scale (0-10): 6 Quality: burning Relieving factors: nothing Exacerbating factors: nothing Associated symptoms: nausea, diaphoresis and other (Fatigue) Treatment prior to arrival: none Risk Factors Coronary artery disease risk factors: diabetes and hypertension Related Data On Oral Contraceptives: No Allergies Allergy/AdvReac Type Severity Reaction Status Date / Time ondansetron [From Zofran] AdvReac Rash Verified 09/22/21 17:55 Review of Systems Review of Systems: Yes all other systems are reviewed and are negative [facility] Past Medical History [facility] Narrative: Social history: She denies tobacco, alcohol and drug use. Medical History Depression Diabetes HTN (hypertension) Social History Social History Patient Tobacco Use Status: Never used Tobacco Advance Directives: No Advance Directives Information Provided: No Physical Exam Vital Signs: Vital Signs: Last Vital Signs Temp 98.2 F 09/22/21 17:56 Pulse 93 09/22/21 17:56 Resp 18 09/22/21 17:56 BP 158/51 H 09/22/21 17:56 Pulse Ox 97 09/22/21 17:56 O2 Del Method 09/22/21 17:56 BMI result Body Mass Index 41.3 Const: Other: Awake, alert, female patient, very pleasant cooperative, does not appear to be in distress, answers all questions appropriately, elevated BMI of 41.4. HEENT: Head: Yes normal to inspection, Yes normocephalic and Yes atraumatic Ears: external ears normal General nose exam: Normal external nose present Face and sinus: Yes normal facial exam Mouth: Normal oral and palatal mucosa present Throat: Yes posterior oropharynx normal Eyes: General: appearance normal, both eyes and all related structures Pupils: Equal, round and reactive pupils present Neck: Neck: Yes normal visual inspection, Yes no lymphadenopathy, Yes trachea midline and Yes supple Chest: Chest palpation & inspection: normal inspection of the chest and normal palpation of entire chest wall Resp: Effort & Inspection: normal respiratory effort and able to speak in complete sentences Auscultation: clear to auscultation bilaterally Cardio: Rate: regular rate Rhythm: regular rhythm Heart sounds: S1 normal heart sound present, S2 normal heart sound present and no murmurs GI: Inspection: Yes normal to inspection Palpation (GI): Soft to palpation, nontender and no guarding Auscultation: normal bowel sounds : General: Yes no CVA tenderness Back/Spine/Pelvis: Back: no CVA tenderness Skin: General skin exam: no rashes or lesions noted Neuro: Cranial nerves: Yes CN's II-XII intact bilaterally and Yes Equal, round and reactive pupils present Cognition (Neuro): normal cognition Motor exam (neuro): 5/5 motor strength present throughout Extrem: General: Yes normal to inspection Psych: Appearance: grossly normal Speech and movement: Normal speech and movement present Affect: normal affect Attitude: cooperative Thought process: Normal thought process present Thought content: Normal thought content present Course Course Course Narrative: 70-year-old female who presents emergency department for evaluation left-sided chest pain, headache, abdominal pain nausea diaphoresis which started at rest approximately 30 minutes prior to coming to the emergency department and was constant but resolved at the time that I evaluated her. Patient took her blood pressure at home and her monitor registered to X-IO to read. On presentation, her initial blood pressure was 158/51. Patient's physical examination was unremarkable. Laboratory evaluation revealed an elevated WBC 91665 which is chronic. Patient was also anemic with an H&H of 10 and 34 which is chronic as well. Patient's high sensitivity troponin I was detectable at 6.3 but not elevated. Patient's chest x-ray was unremarkable. Patient's EKG revealed first-degree AV block with no acute changes was unchanged from her CC EKG dated 09/19/2021. This time I do not think the patient's chest pain is secondary to myocardial infarction/injury and I did discuss this with her. I did discuss blood pressure management with the patient as well advised to continue taking her medications and she should discuss continuing losartan with her PCP and not stop this medication lesser PCP decides to change the medicine. MDM - Chest Pain Medical Records Data Attestation: I reviewed the patient's medical records. Lab Data Attestation: I reviewed the patient's lab results. Result diagrams: 09/22/21 20:00 09/22/21 20:00 Labs: Lab Results 09/22/21 09/22/21 09/22/21 Range/Units 20:00 20:00 20:00 WBC 13.8 H (4.8-10.8) X10*3/uL RBC 4.74 (4.20-5.50) X10*6/uL Hgb 10.3 L (12.0-16.0) g/dl Hct 34.3 L (37.0-47.0) % MCV 72.4 L (80.0-98.0) fL MCH 21.7 L (27.0-33.0) pg MCHC 30.0 L (31.0-35.0) g/dl RDW 18.7 H (11.0-16.0) % Plt Count 377 (160-400) X10*3/uL MPV 10.0 (9.4-12.3) fL Immature Gran % (Auto) 0.3 (0.0-0.4) % Neut % (Auto) 77.3 H (45-73) % Lymph % (Auto) 16.0 L (20-40) % [place] % (Auto) 5.7 (2-11) % Eos % (Auto) 0.4 (0-4) % Baso % (Auto) 0.3 (0-2) % Lymph # (Auto) 2.2 (1.2-4.9) X10*3/uL [place] # (Auto) 0.8 (0.1-1.2) X10*3/uL Eos # (Auto) 0.1 (0.0-0.4) X10*3/uL Baso # (Auto) 0.0 (0.0-0.2) X10*3/uL Abs Immat Gran (auto) 0.04 H (0.00-0.03) X10*3/uL Absolute Neuts (auto) 10.7 H (2.0-8.3) x10*3/uL Absolute Nucleated RBC 0.000 (0.0-0.012) X10*3/uL Nucleated RBC % (auto) 0.0 (0.0-0.2) /100WBC Sodium 139 (135-145) mmol/L Potassium 4.3 (3.3-5.1) mmol/L Chloride 105 (96-108) mmol/L Carbon Dioxide 23 (22-29) mmol/L Anion Gap 15 (12-20) BUN 13 (9-16) mg/dL Creatinine 0.75 (0.5-1.4) mg/dL Estim Creat Clear Calc 85.5 Estimated GFR > 60 Random Glucose 104 (60-115) mg/dL Calcium 9.5 (8.4-10.2) mg/dL Troponin I High Sens 6.3 (<3.5-17.0) ng/L ECG Data ECG #1: Interpretation: 2006: Sinus rhythm with a rate of 69, first-degree AV block with a prolonged IA of 214 milliseconds, normal QRS duration QTC duration, inverted T-wave in lead 3, no other T-wave abnormalities, no ST segment elevation, no ST segment depression, no Q-waves compared to EKG dated 09/20/2021 there is no significant change. Discharge Plan Discharge Clinical Impression: Chest pain, Headache, Abdominal pain Patient Disposition: Home, Self-Care Instructions: Chest Pain (ED) Additional Instructions: Your blood work was normal. Your EKG was unremarkable. Your chest x-ray was normal. High blood pressure instructions: The reason to check your blood pressure at home is to give your doctor an idea of what your blood pressure does when you are not in the doctor's office. Take your blood pressure in the mornings, Mondays , Wednesdays and Fridays and then write down these readings to discuss them with your doctor at your next visit. Continue taking your blood pressure medications as prescribed by your doctor. Follow-up with your doctor to discuss your blood pressure readings in 2 weeks and discuss your medications. Please return to the emergency department if your symptoms get worse or if you develop any new symptoms that are concerning to you. Print Language: Citizen Of [place]
== END 2021-09-23 | disposition home or self-care (01) ==
PROVIDERS: Emergency Provider Emergency Medicine Emergency Medical Services; PCP Student in an Organized Health Care Education/Training Program
DX: R07.9 Chest pain, unspecified (principal); R51.9 Headache, unspecified; R10.9 Unspecified abdominal pain; D64.9 Anemia, unspecified; I10 Essential (primary) hypertension; E11.9 Type 2 diabetes mellitus without complications
CPT/HCPCS: 36415; 71045; 80048; 84484; 85025; 93005; 99283; 99284

== ENCOUNTER 2021-09-25 10:15 | Emergency (ER) | payer MEDICARE, MEDICAID, SELFPAY ==
--- NOTE | ~2021-09-25 | XR_ITS ---
EXAMINATION: XR CHEST CLINICAL INFORMATION: Chest pain COMPARISON: Chest 09/22/2021 TECHNIQUE: Frontal view of the chest was obtained. FINDINGS: Well-expanded lungs without acute process. Heart size and pulmonary vascularity is normal. No gross bony abnormality seen. XR/XR chest 1V IMPRESSION: Unremarkable chest exam
--- NOTE | ~2021-09-25 | US_ITS ---
EXAMINATION: US ABDOMEN LIMITED CLINICAL INFORMATION: Right upper quadrant pain and nausea. COMPARISON: None TECHNIQUE: Real-time imaging of the right upper quadrant abdominal viscera. FINDINGS: PANCREAS: Not imaged. LIVER: Not fully imaged. GALLBLADDER: Couple of small echogenic nonshadowing gallstones are seen in addition to a small amount of dependent sludge. No gallbladder wall thickening or pericholecystic fluid. The patient did not have a sonographic Harvey sign at time of exam. COMMON BILE DUCT: Not well visualized. The visualized segment of the duct measures 0.3 cm, within normal limits. No para RIGHT KIDNEY: Not imaged. FREE FLUID: None. US/US abdomen limited IMPRESSION: 1. Limited gallbladder only scan. 2. Cholelithiasis and small amount of gallbladder sludge. No sonographic evidence of acute cholecystitis. 3. No biliary ductal dilation identified.
--- NOTE | ~2021-09-25 | CT_ITS ---
EXAMINATION: CT ABDOMEN AND PELVIS WITH CONTRAST CLINICAL INFORMATION: 70-year-old female with abdominal pain COMPARISON: Ultrasound from the same day TECHNIQUE: Multidetector volumetric images were obtained from the superior aspect of the liver through the pubic symphysis following administration 85 mL of Omnipaque 350 intravenous contrast. Sagittal and coronal reformatted images were obtained on the technologist's workstation. Oral contrast: No This CT examination was performed using dose optimization techniques as appropriate, variously including the following: *Automated exposure control *Adjustment of mA and/or kV according to patient size (this includes techniques or standardized protocols for targeted exams where dose is matched to indication/reason for exam; i.e. extremities or head) *Use of iterative reconstruction technique DLP: 1119 mGy-cm FINDINGS: LUNG BASES: The visualized lung bases are unremarkable. LIVER, GALLBLADDER, AND BILIARY TREE: The liver is normal in size, shape, and attenuation. No focal hepatic lesion or biliary ductal dilatation is present. Gallbladder is physiologically distended with small calculi in the gallbladder neck, there is no pericholecystic fluid collection or wall thickening. CBD is not dilated PANCREAS: Unremarkable. SPLEEN: Unremarkable. ADRENAL GLANDS: There is bilateral adrenal glands hypertrophy and prominent on the left with left gland nodularity. The left gland measured 3.1 x 3.5 x 3.2 cm. KIDNEYS AND URETERS: The kidneys are normal in size, shape, and attenuation. No hydronephrosis, hydroureter, or calculi seen. No perinephric stranding. BLADDER: Unremarkable. GASTROINTESTINAL TRACT: There is a round 2.7 cm duodenal diverticulum filled by fluid. Colon is unremarkable. Appendix is not identified. No evidence of diverticulitis or diverticulosis. No signs of colitis or bowel obstruction. Mesentery is unremarkable. ABDOMINAL WALL: No significant hernia is appreciated. LYMPH NODES: Normal. VASCULAR: Unremarkable. PELVIC VISCERA: Uterus is surgically absent. Adnexa not visualized. OSSEOUS STRUCTURES: There are mild multilevel degenerative changes in lumbar spine CT/CT abdomen pelvis w con IMPRESSION: No significant abnormality. Fleischner guidelines were followed.
[2021-09-25 11:17] VITALS: BP 110/61; PULSE 63; RESP 18; TEMP 36.6; O2SAT 98; BMI 40.8
--- NOTE | 2021-09-25 11:20 | ECG_ITS ---
Test Reason : CP Blood Pressure : / mmHG Vent. Rate : 068 BPM Atrial Rate : 068 BPM P-R Int : 210 ms QRS Dur : 084 ms QT Int : 392 ms P-R-T Axes : 055 -04 037 degrees QTc Int : 416 ms Sinus rhythm with 1st degree A-V block with Premature supraventricular complexes Minimal voltage criteria for LVH, may be normal variant ( R in aVL ) Borderline ECG When compared with ECG of 22-SEP-2021 20:06, Premature supraventricular complexes are now Present Referred By: Generic ED Physician Electronically Signed By:ZARINA ENAMORADO
[2021-09-25 11:48] LABS: MANUAL DIFF FLAG NO
[2021-09-25 11:51] LABS: Basophils Percent Auto 0.3 % (0-2); Eosinophils Absolute Auto 0.1 X10*3/uL (0.0-0.4); Eosinophils Percent Auto 0.4 % (0-4); Hemoglobin 10.9 g/dl (12.0-16.0); Imm Gran Abs Auto 0.05 X10*3/uL (0.00-0.03); Imm Gran Pct Auto 0.4 % (0.0-0.4); Lymphocytes Absolute Auto 1.7 X10*3/uL (1.2-4.9); Lymphocytes Percent Auto 12.5 % (20-40); Mean Corpuscular HGB Conc 30.3 g/dl (31.0-35.0); Mean Corpuscular Hemoglobin 21.8 pg (27.0-33.0); Mean Platelet Volume 10.2 fL (9.4-12.3); Monocytes Absolute Auto 0.7 X10*3/uL (0.1-1.2); Monocytes Percent Auto 5.6 % (2-11); Neutrophils Absolute Auto 10.7 x10*3/uL (2.0-8.3); Neutrophils Percent Auto 80.8 % (45-73); Platelet Count 403 X10*3/uL (160-400); Red Cell Distribution Width 18.6 % (11.0-16.0); White Blood Count 13.2 X10*3/uL (4.8-10.8)
[2021-09-25 12:02] LABS: Anion Gap 19 (12-20); Blood Urea Nitrogen 10 mg/dL (9-16); Calcium 9.4 mg/dL (8.4-10.2); Carbon Dioxide 21 mmol/L (22-29); Chloride 105 mmol/L (96-108); Creatinine Clr Calc Pharmacy 89.7; Estimated Glomerular Filt Rate > 60; Glucose Random 107 mg/dL (60-115); Potassium 4.5 mmol/L (3.3-5.1); Sodium 140 mmol/L (135-145)
[2021-09-25 12:09] LABS: Troponin-I High Sensitivity 4.3 ng/L (<3.5-17.0)
[2021-09-25 12:31] LABS: B Type Natriuretic Peptide 45 pg/mL (<100)
[2021-09-25 12:58] LABS: COVID-19 Test Negative (Negative)
--- NOTE | 2021-09-25 13:36 | ED.CHESTPAIN ---
HPI - Chest Pain General Chief Complaint: Chest Pain Stated Complaint: high BP Time Seen by Provider: 09/25/21 12:06 Source: patient and automobile mechanic motor Mode of arrival: ambulatory History of Present Illness HPI narrative: 70-year-old female who presents to the emergency room stating that at night she experiences heart palpitations, abdominal discomfort that she feels up through her abdomen into her chest ) that is associated with nausea, and dry mouth. Patient states that this can happen at any time of the day. On review of the triage note patient initially reported that this started at 05:00 this morning, she has endorse that this can happen at any time. Related Data Allergies Allergy/AdvReac Type Severity Reaction Status Date / Time ondansetron [From Zofran] AdvReac Rash Verified 09/25/21 11:16 Review of Systems Review of Systems: Pertinent positives and negatives as stated in the HPI 10 point review of systems is otherwise negative. PMFSH Past Medical History Source: nursing notes reviewed Medical History Depression Diabetes HTN (hypertension) Social History Social History Patient Tobacco Use Status: Never used Tobacco Advance Directives: No Advance Directives Information Provided: Yes Physical Exam Vital Signs: Vital Signs: Last Vital Signs Temp 98.3 F 09/25/21 14:12 Pulse 66 09/25/21 14:12 Resp 16 09/25/21 14:12 BP 117/47 L 09/25/21 14:12 Pulse Ox 98 09/25/21 14:12 O2 Del Method 09/25/21 14:12 BMI result Body Mass Index 40.8 VITAL SIGNS: Reviewed. GENERAL: Well developed, well nourished, in no acute distress. HEAD: Normocephalic/atraumatic, EYES: PERRLA, EOMI EARS: Ext canals without abnormality, TMs non-bulging and non-erythematous NOSE: Nares patent bilateral OROPHARYNX: no oral lesions noted, posterior pharynx clear and non-erythematous without noted tonsillar enlargement/erythema/exudates NECK: Supple, no adenopathy LUNGS: Normal breath sounds. No adventitious sounds or accessory muscle use. SpO2<98> CARDIOVASCULAR: Regular rate and rhythm without noted murmurs, no JVD or lower extremity edema. ABDOMEN: Soft, Tenderness in right upper quadrant, Harvey's positive, otherwise abdomen is nondistended MUSCULOSKELETAL: No tenderness, deformities, or effusions noted on gross inspection. EXTREMITIES: No cyanosis, clubbing or edema. SKIN: Inspection of the skin reveals no rashes NEUROLOGIC: Alert and oriented x 4. Strength and sensation to light touch were grossly intact x 4. Course Course Course Narrative: 70-year-old female with history and clinical presentation suggestive possible intra-abdominal etiology for overall symptoms although somewhat confusing. Patient has been evaluated here multiple times within the past week and I reviewed all the laboratory workup and imaging studies completed. As I found that patient had right upper quadrant pain my exam I will pursue the possibility cholecystitis and given patient's other complaints as well as the abdominal complaints will likely follow this exam up it is negative with a CT scan of the abdomen pelvis with IV contrast to ensure that there are no masses or aortic etiologies that may better explain patient's presentation. Review of ultrasound results there is evidence of cholelithiasis but otherwise on preliminary read no evidence of gallbladder wall thickening or pericholecystic fluid. Urinalysis is negative as well as a negative chest x-ray. Will pursue a CT abdomen pelvis to ensure no underlying intra-abdominal pathology that might be contributing to patient's symptoms. It is noted that she continues to have a leukocytosis with left shift and this time is noted to have acute phase reactant evidence increase in platelets. Signed out to Dr. Henson: Follow-up CT abdomen pelvis MDM - Chest Pain Lab Data Result diagrams: 09/25/21 11:40 09/25/21 11:40 Labs: Lab Results 09/25/21 09/25/21 09/25/21 Range/Units 11:40 11:40 11:40 WBC 13.2 H (4.8-10.8) X10*3/uL RBC 5.00 (4.20-5.50) X10*6/uL Hgb 10.9 L (12.0-16.0) g/dl Hct 36.0 L (37.0-47.0) % MCV 72.0 L (80.0-98.0) fL MCH 21.8 L (27.0-33.0) pg MCHC 30.3 L (31.0-35.0) g/dl RDW 18.6 H (11.0-16.0) % Plt Count 403 H (160-400) X10*3/uL MPV 10.2 (9.4-12.3) fL Immature Gran % (Auto) 0.4 (0.0-0.4) % Neut % (Auto) 80.8 H (45-73) % Lymph % (Auto) 12.5 L (20-40) % [facility] % (Auto) 5.6 (2-11) % Eos % (Auto) 0.4 (0-4) % Baso % (Auto) 0.3 (0-2) % Lymph # (Auto) 1.7 (1.2-4.9) X10*3/uL [place] # (Auto) 0.7 (0.1-1.2) X10*3/uL Eos # (Auto) 0.1 (0.0-0.4) X10*3/uL Baso # (Auto) 0.0 (0.0-0.2) X10*3/uL Abs Immat Gran (auto) 0.05 H (0.00-0.03) X10*3/uL Absolute Neuts (auto) 10.7 H (2.0-8.3) x10*3/uL Absolute Nucleated RBC 0.000 (0.0-0.012) X10*3/uL Nucleated RBC % (auto) 0.0 (0.0-0.2) /100WBC Sodium 140 (135-145) mmol/L Potassium 4.5 (3.3-5.1) mmol/L Chloride 105 (96-108) mmol/L Carbon Dioxide 21 L (22-29) mmol/L Anion Gap 19 (12-20) BUN 10 (9-16) mg/dL Creatinine 0.71 (0.5-1.4) mg/dL Estim Creat Clear Calc 89.7 Estimated GFR > 60 Random Glucose 107 (60-115) mg/dL Calcium 9.4 (8.4-10.2) mg/dL Troponin I High Sens 4.3 (<3.5-17.0) ng/L B-Natriuretic Peptide 45 (<100) pg/mL Urine Color Urine Appearance Urine pH (5.0-8.0) Ur Specific [place] (1.005-1.025) Urine Protein (NEG-TRACE) MG/DL Urine Glucose (UA) (NEG) MG/DL Urine Ketones (NEG) MG/DL Urine Blood (NEG) Urine Nitrite (NEG) Ur Leukocyte Esterase (NEG) COVID-19 (GREGG) (Negative) COVID-19 Clin Com 09/25/21 09/25/21 Range/Units 12:34 14:24 WBC (4.8-10.8) X10*3/uL RBC (4.20-5.50) X10*6/uL Hgb (12.0-16.0) g/dl Hct (37.0-47.0) % MCV (80.0-98.0) fL MCH (27.0-33.0) pg MCHC (31.0-35.0) g/dl RDW (11.0-16.0) % Plt Count (160-400) X10*3/uL MPV (9.4-12.3) fL Immature Gran % (Auto) (0.0-0.4) % Neut % (Auto) (45-73) % Lymph % (Auto) (20-40) % [place] % (Auto) (2-11) % Eos % (Auto) (0-4) % Baso % (Auto) (0-2) % Lymph # (Auto) (1.2-4.9) X10*3/uL [place] # (Auto) (0.1-1.2) X10*3/uL Eos # (Auto) (0.0-0.4) X10*3/uL Baso # (Auto) (0.0-0.2) X10*3/uL Abs Immat Gran (auto) (0.00-0.03) X10*3/uL Absolute Neuts (auto) (2.0-8.3) x10*3/uL Absolute Nucleated RBC (0.0-0.012) X10*3/uL Nucleated RBC % (auto) (0.0-0.2) /100WBC Sodium (135-145) mmol/L Potassium (3.3-5.1) mmol/L Chloride (96-108) mmol/L Carbon Dioxide (22-29) mmol/L Anion Gap (12-20) BUN (9-16) mg/dL Creatinine (0.5-1.4) mg/dL Estim Creat Clear Calc Estimated GFR Random Glucose (60-115) mg/dL Calcium (8.4-10.2) mg/dL Troponin I High Sens (<3.5-17.0) ng/L B-Natriuretic Peptide (<100) pg/mL Urine Color YELLOW Urine Appearance HAZY Urine pH 7.0 (5.0-8.0) Ur Specific [place] <= 1.005 (1.005-1.025) Urine Protein NEG (NEG-TRACE) MG/DL Urine Glucose (UA) NEG (NEG) MG/DL Urine Ketones NEG (NEG) MG/DL Urine Blood NEG (NEG) Urine Nitrite NEG (NEG) Ur Leukocyte Esterase NEG (NEG) COVID-19 (GREGG) Negative (Negative) COVID-19 Clin Com See Note ECG Data ECG #1: Attestation: I personally reviewed and interpreted this ECG as follows: Prior ECG tracings: available for review Interpretation: Sinus rhythm with first-degree AV block, HR- 68, this is not a change from baseline, no STEMI, CO - 210, QRS/QTC are within normal limits. Discharge Plan Discharge Clinical Impression: Atypical chest pain, Abdominal pain Patient Disposition: Still a Patient
[2021-09-25 14:12] VITALS: BP 117/47; PULSE 66; RESP 16; TEMP 36.8; O2SAT 98
[2021-09-25 14:32] LABS: Appearance Urine HAZY; Color Urine YELLOW; Glucose Urine UA NEG (NEG); Leukocyte Esterase Urine NEG (NEG); Nitrite Urine NEG (NEG); Specific Gravity - Urine <= 1.005 (1.005-1.025); Urine Blood NEG (NEG); Urine Ketones NEG (NEG); Urine Protein NEG (NEG-TRACE)
[2021-09-25 16:00] VITALS: BP 118/52; PULSE 69; RESP 16; O2SAT 98
[2021-09-25] MEDS: iohexoL 350 MG/ML 100 ML INFUS..BTL IV (16:05)
--- NOTE | 2021-09-25 17:10 | PC.NURSE ---
pt a&ox3, vss, pt denies any chest pain/nausea at this time, symptoms have resolved, pending LFT. pt requesting food - waiting for lab results. no new orders at this time.
[2021-09-25 17:36] LABS: Albumin Level 4.4 g/dL (3.5-5.0); Aspartate Amino Transferase 14 U/L (5-31); Bilirubin Direct 0.2 mg/dL (0.0-0.5); Bilirubin Total 0.2 mg/dL (0.0-1.0); Total Protein 7.3 g/dL (6.5-8.0)
[2021-09-25 17:46] LABS: Alanine Aminotransferase 15 U/L (0-31); Alkaline Phosphatase 167 U/L (39-117)
== END 2021-09-25 18:49 | disposition home or self-care (01) ==
PROVIDERS: Student in an Organized Health Care Education/Training Program; Emergency Provider Emergency Medicine
DX: R07.89 Other chest pain (principal); I49.3 Ventricular premature depolarization; K80.20 Calculus of gallbladder without cholecystitis without obstruction; E11.9 Type 2 diabetes mellitus without complications; I10 Essential (primary) hypertension; Z20.822 Contact with and (suspected) exposure to COVID-19
CPT/HCPCS: 36415; 71045; 74177; 76705; 80048; 80076; 81003; 83880; 84484; 85025; 87635; 93005; 99284; Q9967

== ENCOUNTER 2021-09-27 22:19 | Emergency (ER) | payer MEDICARE, MEDICAID, SELFPAY ==
--- NOTE | ~2021-09-27 | XR_ITS ---
EXAMINATION: XR CHEST CLINICAL INFORMATION: Left-sided chest pain. COMPARISON: Chest x-ray 09/25/2021 TECHNIQUE: 2 views of the chest were obtained. FINDINGS: No significant abnormality is noted involving the heart, lungs, mediastinum, bony thorax or soft tissues. XR/XR chest 2V IMPRESSION: Unremarkable examination.
[2021-09-27 22:36] VITALS: BP 146/75; PULSE 86; RESP 18; TEMP 37; O2SAT 96; BMI 40.6
--- NOTE | 2021-09-27 22:38 | ECG_ITS ---
Test Reason : chest pain Blood Pressure : / mmHG Vent. Rate : 069 BPM Atrial Rate : 069 BPM P-R Int : 218 ms QRS Dur : 082 ms QT Int : 410 ms P-R-T Axes : 014 -10 024 degrees QTc Int : 439 ms Sinus rhythm with 1st degree A-V block Minimal voltage criteria for LVH, may be normal variant ( R in aVL ) Borderline ECG When compared with ECG of 25-SEP-2021 11:33, Premature supraventricular complexes are no longer Present Referred By: Generic ED Physician Electronically Signed By:RICHARD GABRIEL MD
[2021-09-27 23:02] LABS: MANUAL DIFF FLAG NO
[2021-09-27 23:09] LABS: Basophils Percent Auto 0.4 % (0-2); Hemoglobin 10.2 g/dl (12.0-16.0); Mean Corpuscular Hemoglobin 21.7 pg (27.0-33.0); PLT CLUMP 1; Red Blood Count 4.69 X10*6/uL (4.20-5.50); Red Cell Distribution Width 18.6 % (11.0-16.0); SCAN SMEAR FLAG 1
[2021-09-27 23:11] LABS: Eosinophils Absolute Auto 0.1 X10*3/uL (0.0-0.4); Eosinophils Percent Auto 1.1 % (0-4); Imm Gran Abs Auto 0.05 X10*3/uL (0.00-0.03); Imm Gran Pct Auto 0.5 % (0.0-0.4); Lymphocytes Percent Auto 20.9 % (20-40); Mean Corpuscular HGB Conc 30.9 g/dl (31.0-35.0); Mean Corpuscular Volume 70.4 fL (80.0-98.0); Mean Platelet Volume 10.9 fL (9.4-12.3); Monocytes Absolute Auto 0.7 X10*3/uL (0.1-1.2); Monocytes Percent Auto 7.9 % (2-11); Neutrophils Absolute Auto 6.5 x10*3/uL (2.0-8.3); Neutrophils Percent Auto 69.2 % (45-73)
[2021-09-27 23:12] LABS: Platelet Count 300 X10*3/uL (160-400); White Blood Count 9.4 X10*3/uL (4.8-10.8)
[2021-09-27 23:20] LABS: Alanine Aminotransferase 11 U/L (0-31); Alkaline Phosphatase 150 U/L (39-117); Anion Gap 18 (12-20); Aspartate Amino Transferase 17 U/L (5-31); Bilirubin Total 0.3 mg/dL (0.0-1.0); Blood Urea Nitrogen 15 mg/dL (9-16); Calcium 8.6 mg/dL (8.4-10.2); Carbon Dioxide 18 mmol/L (22-29); Chloride 105 mmol/L (96-108); Creatinine Clr Calc Pharmacy 82.5; Estimated Glomerular Filt Rate > 60; Glucose Random 110 mg/dL (60-115); Potassium 4.2 mmol/L (3.3-5.1); Sodium 137 mmol/L (135-145); Total Protein 6.9 g/dL (6.5-8.0)
[2021-09-28 02:28] VITALS: BP 120/44; PULSE 68; RESP 18; TEMP 36.7; O2SAT 99
--- NOTE | 2021-09-28 02:33 | PC.NURSE ---
Patient resting in stretcher. Denies chest pressure or burning at this time. Vitals stable. Awaiting testing and MD.
--- NOTE | 2021-09-28 02:55 | ED_ITS ---
HPI - General Adult General Chief complaint: Neuro Symptoms/Deficit Stated complaint: Abd pain/Headache/Arm tingling Time Seen by Provider: 09/28/21 02:54 Source: patient and diplomatic interpreter/translator Mode of arrival: ambulatory Limitations: no limitations History of Present Illness HPI narrative: 70-year-old female came in for evaluation of left side chest burning sensation and under her left breast burning sensation, symptoms started since 15:00 yesterday patient clearly stated that there is no pain just a burning sensation that has been constant now it is improving, nothing make it worse, nothing make it better, patient recently that started on blood pressure medication by her PCP patient noted that her blood pressure fluctuates throughout the day sometimes it is too high sometimes it is low patient was seen by her PCP today the plan is to keep the patient on blood pressure monitoring by her PCP and adjust her m edication. Patient otherwise declined any SOB, no recent travel, no lower extremity swelling or tenderness. Patient was seen and evaluated several times for similar symptoms. This is 5th ED visit in the last week. Related Data Allergies Allergy/AdvReac Type Severity Reaction Status Date / Time ondansetron [From Zofran] AdvReac Rash Verified 09/27/21 22:36 Review of Systems Review of Systems: All other systems are reviewed and are negative Constitutional: Reports as per HPI and Reports no additional constitutional complaints Eyes: Reports as per HPI and Reports no additional eye complaints Reports system reviewed and no additional complaints, except as documented Cardiovascular: Reports as per HPI and Reports no additional cardiovascular complaints Respiratory: Reports as per HPI and Reports no additional respiratory complaints Gastrointestinal: Reports as per HPI and Reports no additional gastrointestinal complaints Genitourinary: Reports no additional female genitourinary complaints Musculoskeletal: Reports no additional musculoskeletal complaints Skin/Breast: Reports system reviewed and no additional complaints, except as do cu Psychiatric: Reports no additional psychiatric complaints Endocrine: Reports no additional endocrine complaints Hematologic/Lymphatic: Reports no additional hematologic/lymphatic complaints Allergic/Immunologic: Reports no additional allergic/immunologic complaints Reports system reviewed and no additional complaints, except as documented and Reports Abnormal speech present [facility] Past Medical History Medical History Depression Diabetes HTN (hypertension) Social History Social History Patient Tobacco Use Status: Never used Tobacco Advance Directives: No Physical Exam ED Vital Signs: Vital Signs - 24 hr 09/27/21 22:36 09/28/21 02:28 Temperature 98.6 F 98.1 F Pulse Rate 86 68 Respiratory Rate 18 18 Blood Pressure 146/75 H 120/44 L Pulse Oximetry 96 99 Oxygen Delivery Method Room Air Room Air BMI result Body Mass Index 40.6 vital signs have been reviewed as appeared to be correct. Blood pressure normal. Heart rate normal. Respiration rate normal. Temperature normal. Oxygen saturation normal. Appearance: anxious,Alert. Oriented X3. No acute distress. Head: Normal external exam. Normocephalic. Atraumatic. No Moore signs noted. No raccoon eyes noted Eyes: PERRLA. EOMI. Conjunctiva and sclera normal. Eyelids normal. ENT: TM's Normal. Pharynx normal. Uvula midline. Moist mucous membranes. No trismus noted. No drooling noted. No muffled voice noted. Neck: Normal inspection. Neck supple. FROM. No adenopathy. Thyroid Normal. No meningeal signs. No neck mass noted. CVS: Normal heart rate and rhythm. Heart sound normal. No murmurs noted. Pulses normal throughout. Respiratory: No respiratory distress. Painless inspiration. Breath sounds normal. No wheezes/rales/rhonchi noted. Chest nontender. No accessory muscle usage noted or decreased air movement noted. Abdomen: Soft and nontender. Bowel sounds normal in all 4 quadrants. No distention noted. No organomegaly noted. No visible injury noted. Back: No CVA tenderness. Full range of motion noted. Skin: Skin warm and dry. Normal skin color. Normal skin turgor. No rashes /lesions/lacerations noted. Extremities: No lower extremity edema. Extremities exhibit normal range of motion. Extremities nontender. Neuro: Oriented X 3. Cranial nerve exam: II-XII are grossly intact No motor deficit. No sensory deficit. Reflexes normal. Medical Decision Making Lab Data Lab results reviewed: Yes I reviewed the patient's lab results. Result diagrams: 09/27/21 22:55 09/27/21 22:55 Labs: Lab Results 09/27/21 09/27/21 09/27/21 Range/Units 22:55 22:55 22:55 WBC 9.4 (4.8-10.8) X10*3/uL RBC 4.69 (4.20-5.50) X10*6/uL Hgb 10.2 L (12.0-16.0) g/dl Hct 33.0 L (37.0-47.0) % MCV 70.4 L (80.0-98.0) fL MCH 21.7 L (27.0-33.0) pg MCHC 30.9 L (31.0-35.0) g/dl RDW 18.6 H (11.0-16.0) % Plt Count 300 D (160-400) X10*3/uL MPV 10.9 (9.4-12.3) fL Immature Gran % (Auto) 0.5 H (0.0-0.4) % Neut % (Auto) 69.2 (45-73) % Lymph % (Auto) 20.9 (20-40) % [place] % (Auto) 7.9 (2-11) % Eos % (Auto) 1.1 (0-4) % Baso % (Auto) 0.4 (0-2) % Lymph # (Auto) 2.0 (1.2-4.9) X10*3/uL [place] # (Auto) 0.7 (0.1-1.2) X10*3/uL Eos # (Auto) 0.1 (0.0-0.4) X10*3/uL Baso # (Auto) 0.0 (0.0-0.2) X10*3/uL Abs Immat Gran (auto) 0.05 H (0.00-0.03) X10*3/uL Absolute Neuts (auto) 6.5 (2.0-8.3) x10*3/uL Absolute Nucleated RBC 0.000 (0.0-0.012) X10*3/uL Nucleated RBC % (auto) 0.0 (0.0-0.2) /100WBC Sodium 137 (135-145) mmol/L Potassium 4.2 (3.3-5.1) mmol/L Chloride 105 (96-108) mmol/L Carbon Dioxide 18 L (22-29) mmol/L Anion Gap 18 (12-20) BUN 15 (9-16) mg/dL Creatinine 0.77 (0.5-1.4) mg/dL Estim Creat Clear Calc 82.5 Estimated GFR > 60 Random Glucose 110 (60-115) mg/dL Calcium 8.6 D (8.4-10.2) mg/dL Total Bilirubin 0.3 (0.0-1.0) mg/dL AST 17 (5-31) U/L ALT 11 (0-31) U/L Alkaline Phosphatase 150 H (39-117) U/L Troponin I High Sens 4.0 (<3.5-17.0) ng/L Total Protein 6.9 (6.5-8.0) g/dL Albumin 4.0 (3.5-5.0) g/dL Imaging Data Chest x-ray: Attestation: I personally reviewed and interpreted this imaging study as follows: Radiologist's impression: no acute pathology. ECG Data Attestation: I personally reviewed and interpreted this ECG as follows: Interpretation: Normal sinus rhythm with first-degree AV block, LVH, normal intervals except for prolonged IN interval, no ST-T changes. Discharge Plan Discharge Clinical Impression: Chest pain, Hypertension Patient Disposition: Home, Self-Care Instructions: Chest Pain (ED) Referrals: Lisbet Guzman PA [Primary Care Provider] -
[2021-09-28 03:29] VITALS: BP 130/65; PULSE 64; RESP 16; TEMP 36.8; O2SAT 99
--- NOTE | 2021-09-28 04:09 | PC.NURSE ---
Reviewed discharge instructions with pt. review medications and blood pressure. Pt verbalized understanding.
== END 2021-09-28 04:12 | disposition home or self-care (01) ==
PROVIDERS: Emergency Provider Emergency Medicine; PCP Student in an Organized Health Care Education/Training Program
DX: R07.9 Chest pain, unspecified (principal); I10 Essential (primary) hypertension; E11.9 Type 2 diabetes mellitus without complications
CPT/HCPCS: 36415; 71046; 80053; 84484; 85025; 93005; 99283; 99284

== ENCOUNTER 2021-11-17 17:42 | Emergency (ER) | payer MEDICARE, MEDICAID, SELFPAY ==
--- NOTE | ~2021-11-17 | US_ITS ---
EXAMINATION: US VENOUS ULTRASOUND WITH DOPPLER LOWER EXTREMITY, RIGHT CLINICAL INFORMATION: Right lower extremity pain COMPARISON: None TECHNIQUE: Ultrasound of the deep veins is performed from the hip to the calf with compression sonography and color and pulse Doppler assessment. Spectral analysis with color-flow imaging is performed. FINDINGS: There is normal venous compression and respiratory variation and augmented flow. The visualized common femoral vein, superficial femoral vein, profunda femoral vein, popliteal vein, and the trifurcation region shows no evidence of deep venous thrombosis. The contralateral left common femoral vein is normal. A 4.6 x 1.0 x 1.5 cm Bowles's cyst is present in the right popliteal fossa. If the patient's symptoms persist, followup ultrasound in 5 days 7 days might be of value to exclude proximal propagation from a non-visualized calf vein. US/US venous duplex LE RT IMPRESSION: No DVT demonstrated in the right lower extremity.
[2021-11-17 18:30] VITALS: BP 138/73; PULSE 79; RESP 18; TEMP 36.3; O2SAT 99; BMI 40.8
[2021-11-17 18:54] LABS: MANUAL DIFF FLAG NO
[2021-11-17 19:05] LABS: Basophils Percent Auto 0.3 % (0-2); Eosinophils Absolute Auto 0.1 X10*3/uL (0.0-0.4); Eosinophils Percent Auto 1.5 % (0-4); Hematocrit 35.1 % (37.0-47.0); Hemoglobin 10.4 g/dl (12.0-16.0); Imm Gran Abs Auto 0.02 X10*3/uL (0.00-0.03); Imm Gran Pct Auto 0.2 % (0.0-0.4); Lymphocytes Percent Auto 21.4 % (20-40); Mean Corpuscular HGB Conc 29.6 g/dl (31.0-35.0); Mean Corpuscular Hemoglobin 20.8 pg (27.0-33.0); Mean Corpuscular Volume 70.3 fL (80.0-98.0); Mean Platelet Volume 9.9 fL (9.4-12.3); Monocytes Absolute Auto 0.8 X10*3/uL (0.1-1.2); Monocytes Percent Auto 8.1 % (2-11); Neutrophils Absolute Auto 6.4 x10*3/uL (2.0-8.3); Neutrophils Percent Auto 68.5 % (45-73); Platelet Count 355 X10*3/uL (160-400); Red Blood Count 4.99 X10*6/uL (4.20-5.50); Red Cell Distribution Width 20.2 % (11.0-16.0); White Blood Count 9.3 X10*3/uL (4.8-10.8)
[2021-11-17 19:13] LABS: Anion Gap 19 (12-20); Blood Urea Nitrogen 12 mg/dL (9-16); Calcium 9.1 mg/dL (8.4-10.2); Carbon Dioxide 21 mmol/L (22-29); Chloride 104 mmol/L (96-108); Estimated Glomerular Filt Rate > 60; Glucose Random 94 mg/dL (60-115); Potassium 4.1 mmol/L (3.3-5.1); Sodium 140 mmol/L (135-145)
[2021-11-17 19:32] LABS: D Dimer High Sensitivity 421 NG/ML
--- NOTE | 2021-11-17 20:27 | PC.NURSE ---
recieved call from [facility] in Ultrasound. Triage state left leg but it is the right leg. Order has been changed.
[2021-11-17 23:45] VITALS: BP 114/77; PULSE 84; RESP 16; TEMP 36.9; O2SAT 97
--- NOTE | 2021-11-17 23:56 | ED.EXTPRO ---
HPI - Extremity Problem General Chief complaint: Extremity Problem Stated complaint: right leg pain ,knee swollen Time Seen by Provider: 11/17/21 19:26 History of Present Illness HPI Narrative: 71-year-old female presents today with having right back pain radiating down to the left leg. Began while patient is sleeping. Denies any long travel. Denies any history of blood clots. Denies any trauma. Patient is from home. No bowel urinary incontinence. No focal weakness. Ambulates with normal gait. Related Data Previous Rx's Medication Instructions Recorded cyclobenzaprine 10 mg tablet 10 mg PO TID PRN pain #14 tabs 11/18/21 ibuprofen 400 mg tablet 400 mg PO Q6H PRN pain #20 tabs 11/18/21 Allergies Allergy/AdvReac Type Severity Reaction Status Date / Time ondansetron [From Zofran] AdvReac Rash Verified 11/17/21 18:30 Review of Systems Review of Systems: Positive pain to the left leg Yes all other systems are reviewed and are negative [facility] Past Medical History Attestation statement: The following information was validated with the patient. Medical History Depression Diabetes HTN (hypertension) Social History Social History Patient Tobacco Use Status: Never used Tobacco Physical Exam Vital Signs: Vital Signs: Last Vital Signs Temp 98.5 F 11/17/21 23:45 Pulse 84 11/17/21 23:45 Resp 16 11/17/21 23:45 BP 114/77 11/17/21 23:45 Pulse Ox 97 11/17/21 23:45 O2 Del Method 11/17/21 23:45 BMI result Body Mass Index 40.8 Appearance: Alert. Oriented X3. No acute distress. Eyes: Pupils equal, round and reactive to light. ENT: Pharynx normal. Neck: Normal inspection. Neck supple. No lymph nodes noted. No crepitus CVS: Normal heart rate and rhythm. Pulses normal. Normal S1 and S2 Respiratory: No respiratory distress. Breath sounds normal. No Wheezing. No rales Abdomen: Soft and nontender. No rigidity. No distention. good BS x4 Examination of the back there is no spinal tenderness elicited on palpation. Sensation in the lower extremity intact. Pulse intact. Ambulate with normal gait. No swelling of the calf at 10 cm below the tibial tuberosity. Distal pulses 2+ at dorsalis pedis. No motor deficits at the foot. Reflexes 2+ at patella P Skin: Skin warm and dry. Normal skin color. Normal skin turgor. Extremities: No lower extremity edema. Neurovascular intact to all extremities. No Lacerations. No Rash Neuro: Oriented X 3. No motor deficit. No sensory deficit. Moving all extermities. No slurred speech MDM - Extremity (Nontraumatic) MDM Narrative Medical decision making narrative: Question sciatica. Labs unremarkable. Patient has Doppler of the lower extremity showed no evidence of blood clots. In stable condition. Motrin for pain. Lab Data Result diagrams: 11/17/21 18:44 11/17/21 18:44 Labs: Lab Results 11/17/21 11/17/21 11/17/21 Range/Units 18:44 18:44 18:44 WBC 9.3 (4.8-10.8) X10*3/uL RBC 4.99 (4.20-5.50) X10*6/uL Hgb 10.4 L (12.0-16.0) g/dl Hct 35.1 L (37.0-47.0) % MCV 70.3 L (80.0-98.0) fL MCH 20.8 L (27.0-33.0) pg MCHC 29.6 L (31.0-35.0) g/dl RDW 20.2 H (11.0-16.0) % Plt Count 355 (160-400) X10*3/uL MPV 9.9 (9.4-12.3) fL Immature Gran % (Auto) 0.2 (0.0-0.4) % Neut % (Auto) 68.5 (45-73) % Lymph % (Auto) 21.4 (20-40) % [place] % (Auto) 8.1 (2-11) % Eos % (Auto) 1.5 (0-4) % Baso % (Auto) 0.3 (0-2) % Lymph # (Auto) 2.0 (1.2-4.9) X10*3/uL [place] # (Auto) 0.8 (0.1-1.2) X10*3/uL Eos # (Auto) 0.1 (0.0-0.4) X10*3/uL Baso # (Auto) 0.0 (0.0-0.2) X10*3/uL Abs Immat Gran (auto) 0.02 (0.00-0.03) X10*3/uL Absolute Neuts (auto) 6.4 (2.0-8.3) x10*3/uL Absolute Nucleated RBC 0.000 (0.0-0.012) X10*3/uL Nucleated RBC % (auto) 0.0 (0.0-0.2) /100WBC D-Dimer High Sensitivty 421 NG/ML Sodium 140 (135-145) mmol/L Potassium 4.1 (3.3-5.1) mmol/L Chloride 104 (96-108) mmol/L Carbon Dioxide 21 L (22-29) mmol/L Anion Gap 19 (12-20) BUN 12 (9-16) mg/dL Creatinine 0.73 (0.5-1.4) mg/dL Estim Creat Clear Calc 86.0 Estimated GFR > 60 Random Glucose 94 (60-115) mg/dL Calcium 9.1 (8.4-10.2) mg/dL Discharge Plan Discharge Clinical Impression: Sciatica Patient Disposition: Home, Self-Care Instructions: Sciatica (ED) Prescriptions: New cyclobenzaprine 10 mg tablet 10 mg PO TID PRN (Reason: pain) Qty: 14 0RF ibuprofen 400 mg tablet 400 mg PO Q6H PRN (Reason: pain) Qty: 20 0RF Referrals: Physician,Unknown J [Primary Care Provider] - Print Language: Malay
--- NOTE | 2021-11-18 00:52 | PC.NURSE ---
Reviewed discharge instruction with pt, pt verbalized understanding.
== END 2021-11-18 00:54 | disposition home or self-care (01) ==
PROVIDERS: Emergency Provider Emergency Medicine Emergency Medical Services
DX: M54.42 Lumbago with sciatica, left side (principal); R60.0 Localized edema; Z79.899 Other long term (current) drug therapy
CPT/HCPCS: 36415; 80048; 85025; 85379; 93971; 99283; 99284

== ENCOUNTER 2022-02-01 10:05 | Emergency (ER) | payer MEDICARE, MEDICAID, SELFPAY ==
--- NOTE | ~2022-02-01 | CT_ITS ---
EXAMINATION: CT HEAD WITHOUT CONTRAST CLINICAL INFORMATION: Dizziness. COMPARISON: 09/19/[address] scan. TECHNIQUE: Contiguous axial imaging was performed from the skull base to vertex without intravenous administration of contrast. Coronal and sagittal reformatted images were obtained. This CT examination was performed using dose optimization techniques as appropriate, variously including the following: *Automated exposure control *Adjustment of mA and/or kV according to patient size (this includes techniques or standardized protocols for targeted exams where dose is matched to indication/reason for exam; i.e. extremities or head) *Use of iterative reconstruction technique DLP: 654 mGy-cm FINDINGS: The cortical sulci are normal. The lateral ventricles are symmetrical. The third and fourth ventricles are in their normal midline position. The basilar and prepontine cisterns are unremarkable. There is no acute intra or extracerebral abnormality. There is no mass effect or midline shift. Sections through the bony calvarium are unremarkable. The subcutaneous defect in the high parietal region is unchanged. 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 The bony orbits and orbital contents are unremarkable. CT/CT head/brain wo IV con IMPRESSION: No acute intracranial pathology.
[2022-02-01 10:30] VITALS: BP 138/64; PULSE 62; RESP 18; TEMP 36.6; O2SAT 98; BMI 42.0
--- NOTE | 2022-02-01 10:35 | ECG_ITS ---
Test Reason : dizziness Blood Pressure : / mmHG Vent. Rate : 060 BPM Atrial Rate : 060 BPM P-R Int : 254 ms QRS Dur : 080 ms QT Int : 414 ms P-R-T Axes : 044 -12 033 degrees QTc Int : 414 ms Sinus rhythm with 1st degree A-V block Minimal voltage criteria for LVH, may be normal variant ( R in aVL ) Borderline ECG When compared with ECG of 27-SEP-2021 22:41, No significant change was found Referred By: Generic ED Physician Electronically Signed By:RICHARD GABRIEL MD
[2022-02-01 11:00] LABS: MANUAL DIFF FLAG NO
[2022-02-01 11:04] LABS: Basophils Absolute Auto 0.1 X10*3/uL (0.0-0.2); Basophils Percent Auto 0.6 % (0-2); Eosinophils Absolute Auto 0.1 X10*3/uL (0.0-0.4); Hematocrit 34.5 % (37.0-47.0); Hemoglobin 10.2 g/dl (12.0-16.0); Imm Gran Abs Auto 0.04 X10*3/uL (0.00-0.03); Imm Gran Pct Auto 0.5 % (0.0-0.4); Lymphocytes Absolute Auto 2.2 X10*3/uL (1.2-4.9); Mean Corpuscular HGB Conc 29.6 g/dl (31.0-35.0); Mean Corpuscular Hemoglobin 20.4 pg (27.0-33.0); Mean Corpuscular Volume 69.1 fL (80.0-98.0); Mean Platelet Volume 9.7 fL (9.4-12.3); Monocytes Absolute Auto 0.7 X10*3/uL (0.1-1.2); Monocytes Percent Auto 7.7 % (2-11); Neutrophils Absolute Auto 5.7 x10*3/uL (2.0-8.3); Neutrophils Percent Auto 65.2 % (45-73); Platelet Count 368 X10*3/uL (160-400); Red Blood Count 4.99 X10*6/uL (4.20-5.50); Red Cell Distribution Width 21.4 % (11.0-16.0); White Blood Count 8.7 X10*3/uL (4.8-10.8)
[2022-02-01 11:42] LABS: Influenza A PCR NEGATIVE (Negative); Influenza B PCR NEGATIVE (Negative); Resp Syncy Virus RNA Qual PCR NEGATIVE (Negative); SARS COV2 PCR INHOUSE NEGATIVE (Negative)
[2022-02-01 12:30] LABS: Anion Gap 13 (12-20); Blood Urea Nitrogen 15 mg/dL (9-16); Calcium 9.6 mg/dL (8.4-10.2); Carbon Dioxide 25 mmol/L (22-29); Chloride 109 mmol/L (96-108); Creatinine Clr Calc Pharmacy 81.9; Estimated Glomerular Filt Rate > 60; Glucose Random 99 mg/dL (60-115); Potassium 4.6 mmol/L (3.3-5.1); Sodium 142 mmol/L (135-145)
--- NOTE | 2022-02-01 16:18 | ED.DIZZY ---
HPI - Dizziness General Chief Complaint: Dizziness Stated Complaint: Dizziness Time Seen by Provider: 02/01/22 16:12 Source: patient Mode of arrival: ambulatory Limitations: no limitations History of Present Illness HPI Narrative: 71 year old male history of depression, diabetes, hypertension presents to the emergency department with dizziness for two days. Patient tells me dizziness has been progressively worsening over the past few days, she tells me it is worse when she is walking and when she changes positions, reports intermittently she has tinnitus in bilateral ears. She describes her dizziness as room spinning. Eating and drinking well. Has been ambulatory over the past few days without assistance. Denies headache, trauma, vision changes, weakness, chest pain, shortness of breath, fevers, chills, headache, neck pain. Not on blood thinners. NIHSS 0 Related Data Previous Rx's Medication Instructions Recorded cyclobenzaprine 10 mg tablet 10 mg PO TID PRN pain #14 tabs 11/18/21 ibuprofen 400 mg tablet 400 mg PO Q6H PRN pain #20 tabs 11/18/21 meclizine 25 mg tablet 25 mg PO DAILY PRN dizziness #20 02/01/22 tabs Allergies Allergy/AdvReac Type Severity Reaction Status Date / Time ondansetron [From Zofran] AdvReac Rash Verified 11/17/21 18:30 [facility] Past Medical History Medical History Depression Diabetes HTN (hypertension) Social History Social History Patient Tobacco Use Status: Never used Tobacco Advance Directives: No Advance Directives Information Provided: No Physical Exam Vital Signs: Vital Signs: Last Vital Signs Temp 97.9 F 02/01/22 10:30 Pulse 62 02/01/22 17:42 Resp 18 02/01/22 17:42 BP 143/73 H 02/01/22 17:42 Pulse Ox 100 02/01/22 17:42 O2 Del Method 02/01/22 17:42 BMI result Body Mass Index 42.0 vss Appearance: Alert.? Oriented X3.? No acute distress.? Head: Normocephalic, atraumatic, no step-offs or deformities Eyes: Pupils equal, round and reactive to light.? Extraocular movements intact and pain free without nystagmus Neck: Normal inspection.? Neck supple.? CVS: Normal heart rate and rhythm.? Pulses normal.? Respiratory: No respiratory distress.? Breath sounds normal.? Abdomen: Soft and nontender.? Skin: Skin warm and dry.? Normal skin color.? Normal skin turgor.? Extremities: No lower extremity edema.? No calf ttp. 5/5 strength to bilateral upper and lower extremities Back: No midline tenderness, no C-spine tenderness, full range of motion, no CVA tenderness bilaterally Neuro: Oriented X 3.? No motor deficit.? No sensory deficit. CN 2-12 intact . Normal axqtnw-ki-bprk, yych-it-tvqz, steady tandem gait w/ normal coordination Course Reevaluation(s) Reevaluation #1: CBC appears to be around patient's baseline with a microcytic anemia. Chemistry with no acute findings requiring intervention. Flu/COVID/RSV negative. Head CT unremarkable. EKG showing sinus rhythm with first-degree AV block, no significant changes when compared to previous no signs of ischemia. Orthostatic vital signs negative. Patient has been ambulatory in the department without difficulties. At this time patient will be discharged home advised to return with any new or worsening symptoms educated on worrisome signs and symptoms and when to return. Outlined on discharge. At time of discharge patient feeling well reports improvement of symptoms. Will be discharged home with meclizine. Time: 18:12 Medications Administered Discontinued Medications Generic Name Dose Route Start Last Admin Trade Name Freq PRN Reason Stop Dose Admin Meclizine HCl 25 mg 02/01/22 16:35 02/01/22 17:08 Meclizine Hcl 25 Mg Tablet PO 02/01/22 16:36 25 mg ONCE ONE Administration Medical Decision Making Medical Decision Making [facility] Narrative: 1630 71 year old female presents w/ two days of dizziness described as room spinning, worse w/ positional changes, and at times accompanied by tinnitus PE benign Likely vertigo versus BPPV. The unlikely stroke, posterior stroke. Will rule out electrolyte abnormalities, orthostatic dizziness, dysrhythmias Plan- labs, ua, ct head/brain, meclizine, ekg, orthostatic vital signs Critical Care Time Critical Care Time Critical Care Time: No Discharge Plan Discharge Clinical Impression: Dizziness, First degree heart block Patient Disposition: Home, Self-Care Instructions: Heart Block (ED), Dizziness (ED) Additional Instructions: Take your medications as prescribed. If you were prescribed antibiotics today, it is important that you take your medication to their entirety, do not skip any doses, do not finish them early. Follow-up with your primary care provider this week. Return to the emergency department with new or worsening symptoms. Such as fevers, chills, chest pain, shortness of breath, nausea, vomiting, dizziness, headache, vision changes, lethargy In case of emergency call 911 Take meclizine as needed for dizziness Drink plenty of fluids Your noted to have a first-degree heart block, Cardiology information below this does not require prompt cardiology follow-up however you may want to have a revenue agent at some point. [place] meghan medicamentos seg?n lo prescrito. Si le recetaron antibi?ticos hoy, es importante que tome alford medicamento en alford totalidad, no se salte ninguna dosis, no los termine antes de tiempo. Seguimiento con [place] proveedor de atenci?n primaria esta semana. Regrese al departamento de emergencias con s?ntomas nuevos o que empeoran. [place] fiebre, escalofr?os, dolor de pecho, dificultad para respirar, n?useas, v?mitos, mareos, dolor de merly, cambios en la visi?n, letargo En miley de emergencia llama al 911 [place] meclizina seg?n sea necesario para los mareos. Beber mucho l?quido Se not? que tiene un bloqueo card?aco de primer ezio. La informaci?n de cardiolog?a a continuaci?n no requiere un seguimiento cardiol?gico r?pido; sin embargo, es posible que desee tener un cardi?logo en alg?n momento. Prescriptions: New meclizine 25 mg tablet 25 mg PO DAILY PRN (Reason: dizziness) Qty: 20 0RF No Action cyclobenzaprine 10 mg tablet 10 mg PO TID PRN (Reason: pain) Qty: 14 0RF ibuprofen 400 mg tablet 400 mg PO Q6H PRN (Reason: pain) Qty: 20 0RF Referrals: Jamia Carney MD [Primary Care Provider] - 2 days [facility] [Provider Group] - 1 week Stand Alone Forms: Work/School Release
--- NOTE | 2022-02-01 16:34 | ECG_ITS ---
Test Reason : CHEST PAIN Blood Pressure : / mmHG Vent. Rate : 070 BPM Atrial Rate : 070 BPM P-R Int : 230 ms QRS Dur : 086 ms QT Int : 414 ms P-R-T Axes : 040 -01 044 degrees QTc Int : 447 ms Sinus rhythm with 1st degree A-V block Minimal voltage criteria for LVH, may be normal variant ( R in aVL ) Borderline ECG When compared with ECG of 01-FEB-2022 10:47, No significant change was found Referred By: Boubacar Gomez Electronically Signed By:RICHARD GABRIEL MD
[2022-02-01] MEDS: Meclizine HCl 25 MG TABLET PO (17:08)
[2022-02-01 17:36] VITALS: BP 143/73; PULSE 62
[2022-02-01 17:42] VITALS: BP 143/73; PULSE 62; RESP 18; O2SAT 100
[2022-02-01 17:54] LABS: Glucose, Whole Blood 90 mg/dL (60-115)
[2022-02-01 18:16] LABS: Appearance Urine Clear; Color Urine Yellow; Glucose Urine UA Negative (Negative); Leukocyte Esterase Urine Small (1+) (Negative); Nitrite Urine Negative (Negative); UMIC TRIGGER UACC YES; Urine Blood Negative (Negative); Urine Ketones Negative (Negative); Urine Protein Negative (Neg-Trace)
--- NOTE | 2022-02-01 18:24 | PC.NURSE ---
pt no longer symptomatic after meclizine will be discharged home
[2022-02-01 18:34] LABS: Bacteria Urine None Seen (None Seen); Hyaline Casts Urine 0-2 /LPF (0-2); RBC Urine 0-2 /HPF (0-2); Squamous Epithelial Cell Urine 0-2 /HPF (0-2); UACC Culture Trigger YES; WBC Urine 0-5 /HPF (0-5)
== END 2022-02-01 18:21 | disposition home or self-care (01) ==
PROVIDERS: Physician Assistant; Emergency Provider Internal Medicine; PCP Internal Medicine
DX: I44.0 Atrioventricular block, first degree (principal); R42 Dizziness and giddiness; I10 Essential (primary) hypertension; Z20.822 Contact with and (suspected) exposure to COVID-19; Z79.899 Other long term (current) drug therapy
CPT/HCPCS: 0241U; 36415; 70450; 80048; 81001; 82947; 83735; 85025; 87086; 93005; 99284

== ENCOUNTER 2022-02-20 23:13 | Emergency (ER) | payer MEDICARE, MEDICAID, SELFPAY ==
--- NOTE | 2022-02-20 | ECG_ITS ---
Test Reason : cp Blood Pressure : / mmHG Vent. Rate : 072 BPM Atrial Rate : 072 BPM P-R Int : 262 ms QRS Dur : 080 ms QT Int : 384 ms P-R-T Axes : 057 004 037 degrees QTc Int : 420 ms Sinus rhythm with 1st degree A-V block Otherwise normal ECG When compared with ECG of 01-FEB-2022 16:57, No significant change was found Referred By: Slava Whiteside Electronically Signed By:RICHARD GABRIEL MD
--- NOTE | 2022-02-20 23:42 | ED.CHESTPAIN ---
HPI - Chest Pain General Chief Complaint: Chest Pain Stated Complaint: HIGH BP 120/90,CHEST PRESSURE,ASA GIVEN PER EMS Time Seen by Provider: 02/20/22 23:22 Source: patient Mode of arrival: EMS Limitations: no limitations History of Present Illness HPI narrative: Previous with history of hypertension, depression, diabetes while watching TV program notice tingling sensation left arm and left chest check the blood pressure was elevated to 170/92 EMS gave aspirin after arrival patient feeling much better no chest pain or burning sensation pain lasted for 10 minutes no shortness of breath no diaphoresis no nausea or vomiting patient also been feeling dizzy for last few weeks was seen here last time for dizziness on 02/01 patient also complaining of dysuria/frequency for last few days Related Data Home Medications Medication Instructions Recorded Confirmed cholecalciferol (vitamin D3) 25 2 tab PO DAILY 02/21/22 02/21/22 mcg (1,000 unit) chewable tablet (Vitamin D3) furosemide 20 mg tablet 1 tab PO DAILY 02/21/22 02/21/22 loratadine 10 mg tablet 1 tab PO DAILY 02/21/22 02/21/22 lorazepam 0.5 mg tablet 1 tab PO BID 02/21/22 02/21/22 losartan 50 mg tablet 1 tab PO BID 02/21/22 02/21/22 metformin 500 mg tablet 1 tab PO QAM 02/21/22 02/21/22 metoprolol tartrate 50 mg tablet 1 tab PO BID 02/21/22 02/21/22 omeprazole 40 mg capsule,delayed 1 cap PO DAILY 02/21/22 02/21/22 release simvastatin 40 mg tablet 1 tab PO DAILY 02/21/22 02/21/22 Previous Rx's Medication Instructions Recorded cyclobenzaprine 10 mg tablet 10 mg PO TID PRN pain #14 tabs 11/18/21 ibuprofen 400 mg tablet 400 mg PO Q6H PRN pain #20 tabs 11/18/21 meclizine 25 mg tablet 25 mg PO DAILY PRN dizziness #20 02/01/22 tabs Allergies Allergy/AdvReac Type Severity Reaction Status Date / Time ondansetron [From Zofran] AdvReac Rash Verified 11/17/21 18:30 Review of Systems Review of Systems: Yes all other systems are reviewed and are negative PMFSH Past Medical History Medical History Depression Diabetes HTN (hypertension) Social History Social History Alcohol intake: never Patient Tobacco Use Status: Never used Tobacco Smoked in Last 30 Days: No Use of substances other than those prescribed or required for medical reasons: No Advance Directives: No Advance Directives Information Provided: Yes Physical Exam Vital Signs: Vital Signs: Last Vital Signs Temp 98.8 F 02/20/22 23:53 Pulse 75 02/20/22 23:53 Resp 20 02/20/22 23:53 BP 143/75 H 02/20/22 23:53 Pulse Ox 99 02/20/22 23:53 O2 Del Method 02/20/22 23:53 BMI result Body Mass Index 39.6 Appearance: Alert. Oriented X3. No acute distress. Eyes: No pallor or icterus ENT: Pharynx normal. Oral Mucosa moist Neck: Normal inspection. Neck supple. CVS: Normal heart rate and rhythm. Pulses normal. Respiratory: No respiratory distress. Equal air entry bilateral, no wheezing/rales/rhonchi Abdomen: Soft and nontender. Bowel sounds are present, no mass palpable, no CVA tenderness Skin: Skin warm and dry. Normal skin color. Normal skin turgor. Extremities: No lower extremity edema. No calf tenderness Neuro: Oriented X 3. No motor deficit. No sensory deficit.No cerebellar signs , cranial nerves II-XII intact Medical Decision Making Lab Data MDM Lab Attestation statement: I reviewed the patient's lab results. Result Diagrams: 02/21/22 00:19 02/21/22 00:19 Labs: Lab Results 02/21/22 02/21/22 02/21/22 Range/Units 00:19 00:19 00:19 WBC 11.6 H (4.8-10.8) X10*3/uL RBC 4.90 (4.20-5.50) X10*6/uL Hgb 10.2 L (12.0-16.0) g/dl Hct 34.4 L (37.0-47.0) % MCV 70.2 L (80.0-98.0) fL MCH 20.8 L (27.0-33.0) pg MCHC 29.7 L (31.0-35.0) g/dl RDW 21.2 H (11.0-16.0) % Plt Count 346 (160-400) X10*3/uL MPV 10.1 (9.4-12.3) fL Immature Gran % (Auto) 0.3 (0.0-0.4) % Neut % (Auto) 81.7 H (45-73) % Lymph % (Auto) 12.7 L (20-40) % [place] % (Auto) 4.4 (2-11) % Eos % (Auto) 0.5 (0-4) % Baso % (Auto) 0.4 (0-2) % Lymph # (Auto) 1.5 (1.2-4.9) X10*3/uL [place] # (Auto) 0.5 (0.1-1.2) X10*3/uL Eos # (Auto) 0.1 (0.0-0.4) X10*3/uL Baso # (Auto) 0.1 (0.0-0.2) X10*3/uL Abs Immat Gran (auto) 0.04 H (0.00-0.03) X10*3/uL Absolute Neuts (auto) 9.4 H (2.0-8.3) x10*3/uL Absolute Nucleated RBC 0.000 (0.0-0.012) X10*3/uL Nucleated RBC % (auto) 0.0 (0.0-0.2) /100WBC Sodium 137 (135-145) mmol/L Potassium 4.8 (3.3-5.1) mmol/L Chloride 108 (96-108) mmol/L Carbon Dioxide 20 L (22-29) mmol/L Anion Gap 14 (12-20) BUN 15 (9-16) mg/dL Creatinine 0.86 (0.5-1.4) mg/dL Estim Creat Clear Calc 74.3 Estimated GFR > 60 Random Glucose 117 H (60-115) mg/dL Calcium 9.3 (8.4-10.2) mg/dL Total Bilirubin 0.2 (0.0-1.0) mg/dL AST 17 (5-31) U/L ALT 12 (0-31) U/L Alkaline Phosphatase 173 H (39-117) U/L Troponin I High Sens < 3.5 (<3.5-17.0) ng/L Total Protein 6.7 (6.5-8.0) g/dL Albumin 4.0 (3.5-5.0) g/dL Urine Color Urine Appearance Urine pH (5.0-9.0) Ur Specific [place] (1.005-1.025) Urine Protein (Neg-Trace) mg/dL Urine Glucose (UA) (Negative) mg/dL Urine Ketones (Negative) mg/dL Urine Blood (Negative) Urine Nitrite (Negative) Ur Leukocyte Esterase (Negative) 02/21/22 Range/Units 01:18 WBC (4.8-10.8) X10*3/uL RBC (4.20-5.50) X10*6/uL Hgb (12.0-16.0) g/dl Hct (37.0-47.0) % MCV (80.0-98.0) fL MCH (27.0-33.0) pg MCHC (31.0-35.0) g/dl RDW (11.0-16.0) % Plt Count (160-400) X10*3/uL MPV (9.4-12.3) fL Immature Gran % (Auto) (0.0-0.4) % Neut % (Auto) (45-73) % Lymph % (Auto) (20-40) % [place] % (Auto) (2-11) % Eos % (Auto) (0-4) % Baso % (Auto) (0-2) % Lymph # (Auto) (1.2-4.9) X10*3/uL [place] # (Auto) (0.1-1.2) X10*3/uL Eos # (Auto) (0.0-0.4) X10*3/uL Baso # (Auto) (0.0-0.2) X10*3/uL Abs Immat Gran (auto) (0.00-0.03) X10*3/uL Absolute Neuts (auto) (2.0-8.3) x10*3/uL Absolute Nucleated RBC (0.0-0.012) X10*3/uL Nucleated RBC % (auto) (0.0-0.2) /100WBC Sodium (135-145) mmol/L Potassium (3.3-5.1) mmol/L Chloride (96-108) mmol/L Carbon Dioxide (22-29) mmol/L Anion Gap (12-20) BUN (9-16) mg/dL Creatinine (0.5-1.4) mg/dL Estim Creat Clear Calc Estimated GFR Random Glucose (60-115) mg/dL Calcium (8.4-10.2) mg/dL Total Bilirubin (0.0-1.0) mg/dL AST (5-31) U/L ALT (0-31) U/L Alkaline Phosphatase (39-117) U/L Troponin I High Sens (<3.5-17.0) ng/L Total Protein (6.5-8.0) g/dL Albumin (3.5-5.0) g/dL Urine Color Yellow Urine Appearance Clear Urine pH 6.0 (5.0-9.0) Ur Specific [place] 1.010 (1.005-1.025) Urine Protein Negative (Neg-Trace) mg/dL Urine Glucose (UA) Negative (Negative) mg/dL Urine Ketones Negative (Negative) mg/dL Urine Blood Negative (Negative) Urine Nitrite Negative (Negative) Ur Leukocyte Esterase Small (1+) H (Negative) Independent Interpretation I performed an independent interpretation of an: EKG Interpretation: Normal sinus rhythm heart rate 72 beats per minute first-degree heart block normal axis no acute ST today no acute ischemia Discharge Plan Discharge Clinical Impression: Chest pain Patient Disposition: Home, Self-Care Instructions: Chest Pain (ED) Additional Instructions: If chest pain is unlikely from the heart follow your PCP for further evaluation Report to the ER if worsening of the chest pain Continue your medications Prescriptions: No Action cyclobenzaprine 10 mg tablet 10 mg PO TID PRN (Reason: pain) Qty: 14 0RF ibuprofen 400 mg tablet 400 mg PO Q6H PRN (Reason: pain) Qty: 20 0RF losartan 50 mg tablet 1 tab PO BID metformin 500 mg tablet 1 tab PO QAM omeprazole 40 mg capsule,delayed release(DR/EC) 1 cap PO DAILY simvastatin 40 mg tablet 1 tab PO DAILY lorazepam 0.5 mg tablet 1 tab PO BID metoprolol tartrate 50 mg tablet 1 tab PO BID furosemide 20 mg tablet 1 tab PO DAILY loratadine 10 mg tablet 1 tab PO DAILY cholecalciferol (vitamin D3) [Vitamin D3] 25 mcg (1,000 unit) tablet,chewable 2 tab PO DAILY meclizine 25 mg tablet 25 mg PO DAILY PRN (Reason: dizziness) Qty: 20 0RF
[2022-02-20 23:47] VITALS: BP 143/75; BP 166/96; PULSE 75; PULSE 84; RESP 20; TEMP 37.1; O2SAT 97; O2SAT 99; BMI 39.6
[2022-02-20 23:53] VITALS: BP 143/75; PULSE 75; PULSE 84; RESP 20; TEMP 37.1; O2SAT 99
[2022-02-21 00:23] LABS: Basophils Absolute Auto 0.1 X10*3/uL (0.0-0.2); Basophils Percent Auto 0.4 % (0-2); Eosinophils Absolute Auto 0.1 X10*3/uL (0.0-0.4); Eosinophils Percent Auto 0.5 % (0-4); Hematocrit 34.4 % (37.0-47.0); Hemoglobin 10.2 g/dl (12.0-16.0); Imm Gran Abs Auto 0.04 X10*3/uL (0.00-0.03); Imm Gran Pct Auto 0.3 % (0.0-0.4); Lymphocytes Absolute Auto 1.5 X10*3/uL (1.2-4.9); Lymphocytes Percent Auto 12.7 % (20-40); MANUAL DIFF FLAG NO; Mean Corpuscular HGB Conc 29.7 g/dl (31.0-35.0); Mean Corpuscular Hemoglobin 20.8 pg (27.0-33.0); Mean Corpuscular Volume 70.2 fL (80.0-98.0); Mean Platelet Volume 10.1 fL (9.4-12.3); Monocytes Absolute Auto 0.5 X10*3/uL (0.1-1.2); Monocytes Percent Auto 4.4 % (2-11); Neutrophils Absolute Auto 9.4 x10*3/uL (2.0-8.3); Neutrophils Percent Auto 81.7 % (45-73); Platelet Count 346 X10*3/uL (160-400); Red Cell Distribution Width 21.2 % (11.0-16.0); White Blood Count 11.6 X10*3/uL (4.8-10.8)
[2022-02-21 00:42] LABS: Alanine Aminotransferase 12 U/L (0-31); Alkaline Phosphatase 173 U/L (39-117); Anion Gap 14 (12-20); Aspartate Amino Transferase 17 U/L (5-31); Bilirubin Total 0.2 mg/dL (0.0-1.0); Blood Urea Nitrogen 15 mg/dL (9-16); Calcium 9.3 mg/dL (8.4-10.2); Carbon Dioxide 20 mmol/L (22-29); Chloride 108 mmol/L (96-108); Creatinine Clr Calc Pharmacy 74.3; Estimated Glomerular Filt Rate > 60; Glucose Random 117 mg/dL (60-115); Potassium 4.8 mmol/L (3.3-5.1); Sodium 137 mmol/L (135-145); Total Protein 6.7 g/dL (6.5-8.0)
[2022-02-21 00:46] LABS: Troponin-I High Sensitivity < 3.5 ng/L (<3.5-17.0)
[2022-02-21 01:24] LABS: Appearance Urine Clear; Color Urine Yellow; Glucose Urine UA Negative (Negative); Leukocyte Esterase Urine Small (1+) (Negative); Nitrite Urine Negative (Negative); UMIC TRIGGER UACC YES; Urine Blood Negative (Negative); Urine Ketones Negative (Negative); Urine Protein Negative (Neg-Trace)
[2022-02-21 01:36] LABS: Bacteria Urine None Seen (None Seen); Hyaline Casts Urine 0-2 /LPF (0-2); RBC Urine 0-2 /HPF (0-2); Squamous Epithelial Cell Urine 0-2 /HPF (0-2); UACC Culture Trigger YES; WBC Urine 0-5 /HPF (0-5)
== END 2022-02-21 01:47 | disposition home or self-care (01) ==
PROVIDERS: Emergency Provider Internal Medicine; PCP Internal Medicine
DX: R07.9 Chest pain, unspecified (principal); I10 Essential (primary) hypertension; E11.9 Type 2 diabetes mellitus without complications; Z79.84 Long term (current) use of oral hypoglycemic drugs; Z79.899 Other long term (current) drug therapy; Z79.02 Long term (current) use of antithrombotics/antiplatelets
CPT/HCPCS: 36415; 80053; 81001; 84484; 85025; 87086; 93005; 99283; 99285

== ENCOUNTER 2022-08-29 22:25 | Emergency (ER) | payer MEDICARE, MEDICAID, SELFPAY ==
[2022-08-29 22:37] VITALS: BP 128/76; PULSE 70; RESP 16; TEMP 36.9; O2SAT 98; BMI 43.6
[2022-08-30 00:28] VITALS: BP 152/75; PULSE 72; RESP 22; O2SAT 98
--- NOTE | 2022-08-30 00:41 | ED.CHESTPAIN ---
HPI - Chest Pain General Chief Complaint: Chest Pain Stated Complaint: chest pain Time Seen by Provider: 08/30/22 00:32 Source: patient Mode of arrival: ambulatory Limitations: no limitations History of Present Illness HPI narrative: Patient comes to the emergency room with couple of complaints. Patient states that approximately 6 hours ago, patient was eating cheese, had sudden onset of burning sensation in both ears and then radiated to both arms, and then the burning sensation wrap around the torso. Patient states she did not have chest pain or shortness of breath. Also, patient states that she has a painful lump in the scalp. Patient states that this has already been addressed by her primary care physician and has an appointment pending with surgery Additionally, patient complaining of lower extremity swelling in the afternoons after standing. Patient is already on Lasix. Denies shortness of breath. Related Data Home Medications Medication Instructions Recorded Confirmed cholecalciferol (vitamin D3) 25 2 tab PO DAILY 02/21/22 02/21/22 mcg (1,000 unit) chewable tablet (Vitamin D3) furosemide 20 mg tablet 1 tab PO DAILY 02/21/22 02/21/22 loratadine 10 mg tablet 1 tab PO DAILY 02/21/22 02/21/22 lorazepam 0.5 mg tablet 1 tab PO BID 02/21/22 02/21/22 losartan 50 mg tablet 1 tab PO BID 02/21/22 02/21/22 metformin 500 mg tablet 1 tab PO QAM 02/21/22 02/21/22 metoprolol tartrate 50 mg tablet 1 tab PO BID 02/21/22 02/21/22 omeprazole 40 mg capsule,delayed 1 cap PO DAILY 02/21/22 02/21/22 release simvastatin 40 mg tablet 1 tab PO DAILY 02/21/22 02/21/22 Previous Rx's Medication Instructions Recorded cyclobenzaprine 10 mg tablet 10 mg PO TID PRN pain #14 tabs 11/18/21 ibuprofen 400 mg tablet 400 mg PO Q6H PRN pain #20 tabs 11/18/21 meclizine 25 mg tablet 25 mg PO DAILY PRN dizziness #20 02/01/22 tabs Allergies Allergy/AdvReac Type Severity Reaction Status Date / Time ondansetron [From Zofran] AdvReac Rash Verified 11/17/21 18:30 Review of Systems Review of Systems: Constitutional : No Weight loss, No Fever, No Chills, No Night Sweats, No Fatigue, No Malaise, complaining of a burning sensation that started in the ears, down the arms, wrapping around the abdomen ENT/Mouth : No Hearing loss, No Ear Pain, No Nasal Congestion, No Sinus Pain, No Hoarseness, No sore throat, No Rhinorrhea, No Swallowing Difficulty Eyes: No Eye Pain, No Swelling, No Redness, No Foreign Body, No Discharge, No Vision Changes Cardiovascular : No Chest Pain, No SOB, No Dyspnea on Exertion, No Orthopnea, no palpitations, complaining of lower extremity edema in the afternoons after standing Respiratory : No Cough, No Sputum, No Wheezing, No Smoke Exposure, No Dyspnea Gastrointestinal : No Nausea, No Vomiting, No Diarrhea, No Constipation, No abdominal Pain, No Hematochezia, No Melena Genitourinary : no irregular bleeding, No Dysuria, No Urinary Frequency, No Hematuria, No Urinary Incontinence, No Urgency, No Flank Pain, No Urinary Flow Changes, No Hesitancy Musculoskeletal : No joint pain, No Myalgias, No Joint Swelling Skin : Complaining of a bump on the scalp, No Skin Lesions, No rash Neuro : No Weakness, No Numbness, No Paresthesias, No Loss of Consciousness, No Dizziness, No Headache Psych : No Anxiety/Panic, No Depression, No SI/HI/AH/VH, No Social Issues, Heme/Lymph: No Bruising, No Bleeding,No Lymphadenopathy Endocrine : No Polyuria, No Polydipsia, No Temperature Intolerance [facility] Past Medical History Medical History Depression Diabetes HTN (hypertension) Social History Social History Alcohol intake: never Patient Tobacco Use Status: Never used Tobacco Smoked in Last 30 Days: No Use of substances other than those prescribed or required for medical reasons: No Advance Directives: No Advance Directives Information Provided: Yes Physical Exam Vital Signs: Vital Signs: Last Vital Signs Temp 98.5 F 08/29/22 22:37 Pulse 72 08/30/22 00:28 Resp 22 H 08/30/22 00:28 BP 152/75 H 08/30/22 00:28 Pulse Ox 98 08/30/22 00:28 O2 Del Method Room Air 08/30/22 00:28 BMI result Body Mass Index 43.6 Const: Other: Appearance: Alert. Oriented X3. No acute distress. Eyes: Pupils equal, round and reactive to light. ENT: Pharynx normal. Neck: Normal inspection. Neck supple. No lymph nodes noted. No crepitus CVS: Normal heart rate and rhythm. Pulses normal. Normal S1 and S2 Respiratory: No respiratory distress. Breath sounds normal. No Wheezing. No rales Abdomen: Soft and nontender. No rigidity. No distention. Skin: Skin warm and dry. Normal skin color. Normal skin turgor. There is a 1 cm by 1 cm lump and the scalp, likely cyst versus lipoma Extremities: Trace pitting edema bilaterally, No Lacerations. No Rash Neuro: Oriented X 3. No motor deficit. No sensory deficit. Moving all extremities. No slurred speech. CN 2 through 12 grossly intact Psych: calm, cooperative, normal affect Course Course Course Narrative: - Medical Decision Making Medical Decision Making [facility] Narrative: -patient has no chest pain, only burning sensation in both arms. Troponin negative. At this time patient is asymptomatic. -my interpretation of EKG: Sinus rhythm, heart rate 69, no ST segment depression or elevation, no T-wave inversion, QTC 436 -patient's symptoms unlikely to be of cardiac etiology. Symptoms started after eating cheese, question allergic reaction which self subsided -patient already on Lasix, discussed with the patient to use compression stockings and leg elevation in the afternoon when resting and at night Differential Diagnosis Differential Diagnoses: The differential diagnosis associated with the presentation includes (Anxiety, mild allergic reaction) Lab Data [facility] Lab Attestation statement: I reviewed the patient's lab results. 08/29/22 23:10 08/29/22 23:10 Labs: Lab Results 08/29/22 08/29/22 08/29/22 Range/Units 23:10 23:10 23:10 WBC 9.2 (4.8-10.8) X10*3/uL RBC 4.69 (4.20-5.50) X10*6/uL Hgb 11.9 L (12.0-16.0) g/dl Hct 37.9 (37.0-47.0) % MCV 80.8 (80.0-98.0) fL MCH 25.4 L (27.0-33.0) pg MCHC 31.4 (31.0-35.0) g/dl RDW 16.3 H (11.0-16.0) % Plt Count 258 D (160-400) X10*3/uL MPV 9.8 (9.4-12.3) fL Immature Gran % (Auto) 0.3 (0.0-0.4) % Neut % (Auto) 73.2 H (45-73) % Lymph % (Auto) 19.2 L (20-40) % [place] % (Auto) 6.2 (2-11) % Eos % (Auto) 0.8 (0-4) % Baso % (Auto) 0.3 (0-2) % Lymph # (Auto) 1.8 (1.2-4.9) X10*3/uL [place] # (Auto) 0.6 (0.1-1.2) X10*3/uL Eos # (Auto) 0.1 (0.0-0.4) X10*3/uL Baso # (Auto) 0.0 (0.0-0.2) X10*3/uL Abs Immat Gran (auto) 0.03 (0.00-0.03) X10*3/uL Absolute Neuts (auto) 6.7 (2.0-8.3) x10*3/uL Absolute Nucleated RBC 0.000 (0.0-0.012) X10*3/uL Nucleated RBC % (auto) 0.0 (0.0-0.2) /100WBC Sodium 139 (135-145) mmol/L Potassium 3.7 D (3.3-5.1) mmol/L Chloride 104 (96-108) mmol/L Carbon Dioxide 21 L (22-29) mmol/L Anion Gap 18 (12-20) BUN 16 (9-16) mg/dL Creatinine 0.80 (0.5-1.4) mg/dL Estim Creat Clear Calc 81.4 Estimated GFR > 60 Random Glucose 135 H (60-115) mg/dL Calcium 9.5 (8.4-10.2) mg/dL Total Bilirubin 0.3 (0.0-1.0) mg/dL AST 21 (5-31) U/L ALT 22 (0-31) U/L Alkaline Phosphatase 145 H (39-117) U/L Troponin I High Sens < 2.7 (<3.5-17.0) ng/L Total Protein 7.2 (6.5-8.0) g/dL Albumin 4.0 (3.5-5.0) g/dL Urine Color Urine Appearance Urine pH (5.0-9.0) Ur Specific [place] (1.005-1.025) Urine Protein (Neg-Trace) mg/dL Urine Glucose (UA) (Negative) mg/dL Urine Ketones (Negative) mg/dL Urine Blood (Negative) Urine Nitrite (Negative) Ur Leukocyte Esterase (Negative) 08/30/22 Range/Units 00:26 WBC (4.8-10.8) X10*3/uL RBC (4.20-5.50) X10*6/uL Hgb (12.0-16.0) g/dl Hct (37.0-47.0) % MCV (80.0-98.0) fL MCH (27.0-33.0) pg MCHC (31.0-35.0) g/dl RDW (11.0-16.0) % Plt Count (160-400) X10*3/uL MPV (9.4-12.3) fL Immature Gran % (Auto) (0.0-0.4) % Neut % (Auto) (45-73) % Lymph % (Auto) (20-40) % [place] % (Auto) (2-11) % Eos % (Auto) (0-4) % Baso % (Auto) (0-2) % Lymph # (Auto) (1.2-4.9) X10*3/uL [place] # (Auto) (0.1-1.2) X10*3/uL Eos # (Auto) (0.0-0.4) X10*3/uL Baso # (Auto) (0.0-0.2) X10*3/uL Abs Immat Gran (auto) (0.00-0.03) X10*3/uL Absolute Neuts (auto) (2.0-8.3) x10*3/uL Absolute Nucleated RBC (0.0-0.012) X10*3/uL Nucleated RBC % (auto) (0.0-0.2) /100WBC Sodium (135-145) mmol/L Potassium (3.3-5.1) mmol/L Chloride (96-108) mmol/L Carbon Dioxide (22-29) mmol/L Anion Gap (12-20) BUN (9-16) mg/dL Creatinine (0.5-1.4) mg/dL Estim Creat Clear Calc Estimated GFR Random Glucose (60-115) mg/dL Calcium (8.4-10.2) mg/dL Total Bilirubin (0.0-1.0) mg/dL AST (5-31) U/L ALT (0-31) U/L Alkaline Phosphatase (39-117) U/L Troponin I High Sens (<3.5-17.0) ng/L Total Protein (6.5-8.0) g/dL Albumin (3.5-5.0) g/dL Urine Color Yellow Urine Appearance Clear Urine pH 6.0 (5.0-9.0) Ur Specific [place] 1.010 (1.005-1.025) Urine Protein Negative (Neg-Trace) mg/dL Urine Glucose (UA) Negative (Negative) mg/dL Urine Ketones Negative (Negative) mg/dL Urine Blood Negative (Negative) Urine Nitrite Negative (Negative) Ur Leukocyte Esterase Negative (Negative) Discharge Plan Discharge Clinical Impression: Atypical chest pain, Scalp lump Patient Disposition: Home, Self-Care Instructions: Chest Pain (ED) Additional Instructions: Please follow-up with your primary care physician tomorrow. If you have any worsening or new symptoms, please return to the emergency room or call 911 Prescriptions: No Action cyclobenzaprine 10 mg tablet 10 mg PO TID PRN (Reason: pain) Qty: 14 0RF ibuprofen 400 mg tablet 400 mg PO Q6H PRN (Reason: pain) Qty: 20 0RF losartan 50 mg tablet 1 tab PO BID metformin 500 mg tablet 1 tab PO QAM omeprazole 40 mg capsule,delayed release(DR/EC) 1 cap PO DAILY simvastatin 40 mg tablet 1 tab PO DAILY lorazepam 0.5 mg tablet 1 tab PO BID metoprolol tartrate 50 mg tablet 1 tab PO BID furosemide 20 mg tablet 1 tab PO DAILY loratadine 10 mg tablet 1 tab PO DAILY cholecalciferol (vitamin D3) [Vitamin D3] 25 mcg (1,000 unit) tablet,chewable 2 tab PO DAILY meclizine 25 mg tablet 25 mg PO DAILY PRN (Reason: dizziness) Qty: 20 0RF
== END 2022-08-30 01:36 | disposition home or self-care (01) ==
PROVIDERS: Emergency Provider Emergency Medicine
DX: R07.9 Chest pain, unspecified (principal); R22.0 Localized swelling, mass and lump, head
CPT/HCPCS: 36415; 80053; 81003; 84484; 85025; 93005; 99283; 99284; 99285

== ENCOUNTER 2022-10-06 12:22 | Outpatient (AMB) | payer MEDICARE, MEDICAID, SELFPAY ==
[2022-10-06 12:38] VITALS: BMI 44.3
--- NOTE | 2022-10-06 12:38 | A.OFFVIS_ITS ---
Intake VS Expanded 10/06/22 12:38 10/13/22 10:59 Height 5 ft 4 in 5 ft 4 in Weight 258 lb 6.108 oz 258 lb BMI 44.3 44.3 Intake Visit Reasons: DM Allergies ondansetron [From Zofran] Adverse Reaction (Verified 11/17/21 18:30) Rash HPI Nutrition Presentation Details Pt presents for MNT for T2DM, Pt was referred by Dr. 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 , participates in physical therapy ETOH/SMOKING: stopped smoking 3 years ago denies etoh CLO-Dxkirxr-Ck.Jeor Equation Height 5 ft 4 in Weight 258 lb Resting Metabolic Rate 1674.78 Calculated Activity Level Sedentary Calories Needed to Maintain Weight 2008.74 Diagnosis Nutrition problem #1 food nutri know defi As related to (etiology) #1 diagnosis As evidenced by (sign/symptom) #1 knowledge deficit of diet Monitoring/Goals Nutrition problem monitoring glucose, fasting and weight Nutrition goal/outcome wt loss 5lbs in 2 months Outcome progress verbalized understanding Learning/Education Readiness to learn fair Stages of change pre-contemplation Educational materials provided Yes (meal planning, low fat food concepts, portion control) Most Recent Diabetes Results: Creatinine 0.80 mg/dL (0.5-1.4) 08/29/22 Blood Urea Nitrogen 16 mg/dL (9-16) 08/29/22 Sodium 139 mmol/L (135-145) 08/29/22 Potassium 3.7 mmol/L (3.3-5.1) 08/29/22 Chloride 104 mmol/L (96-108) 08/29/22 Carbon Dioxide 21 mmol/L (22-29) L 08/29/22 Calcium 9.5 mg/dL (8.4-10.2) 08/29/22 AST 21 U/L (5-31) 08/29/22 ALT 22 U/L (0-31) 08/29/22 Total Protein 7.2 g/dL (6.5-8.0) 08/29/22 Albumin 4.0 g/dL (3.5-5.0) 08/29/22 [facility] Medical History Depression Diabetes HTN (hypertension) Social History Alcohol intake: never Patient Tobacco Use Status: Never used Tobacco Assessment & Plan Assessment & Plan (1) T2DM (type 2 diabetes mellitus): Code(s): E11.9 - Type 2 diabetes mellitus without complications Plan: wt: 117 kg Est kcal needs as per MSJ: 2000 (40% carb, 30% protein/fat) Est fluid needs as per 25-30 ml/d: 2900- 3500 ml Est prot per day as per 1 g/kg bw: 117 Recommend fiber intake : 8-10 g per day and gradually increase to 25-28 g per day for women and 35-38 g for men or as tolerated Recommend sodium intake per day : less than 2000 mg Educated patient on: ( R = reviewed V = verbalizes understanding N/R = needs review N/A = not applicable * Food sources of carbohydrate, adequate serving sizes and its role in various health conditions: R * Differences between complex carbohydrates a simple carbohydrates, role of fiber in diet: R * Differences between types of fats and role in diet (mono on saturated fat fatty acids, saturated fatty acids, trans fats): R V * Food sources of sodium in salt and healthy modifications for heart health in kidney health: R * Vitamins and minerals: R * Healthy plate method concept: R * Physical activity: Benefits a precaution: R * Hypoglycemia protocol (rule of 15): R * Dietary prevention of Hyperglycemia: R (2) Morbid obesity with BMI of 40.0-44.9, adult: Code(s): E66.01 - Morbid (severe) obesity due to excess calories; Z68.41 - Body mass index [BMI] 40.0-44.9, adult Patient Instructions: Reduce calories by 500 less daily by reducing on amount of fat Reduce on fat intake by : choosing baked, broiled, steam foods instead of fried , remove skin and visible fats reduce amount of oils/butter/cream/sauces added to the foods when cooking Coding Level of Care Code Nutr Indiv Intake (51041) Diagnoses T2DM (type 2 diabetes mellitus) E11.9 Morbid obesity with BMI of 40.0-44.9, adult E66.01; Z68.41 Time Spent (min) 40
[2022-10-13 10:59] VITALS: BMI 44.3
== END 2022-10-06 13:32 | disposition home or self-care (01) ==
PROVIDERS: PCP Internal Medicine; Visit Provider Dietitian, Registered
DX: E11.9 Type 2 diabetes mellitus without complications (principal); E66.01 Morbid (severe) obesity due to excess calories; Z68.41 Body mass index [BMI] 40.0-44.9, adult

== ENCOUNTER → 2022-10-06 12:22 | Outpatient (BNVA) | payer MEDICARE, MEDICAID, SELFPAY | PROVIDERS: PCP Internal Medicine; Visit Provider Dietitian, Registered | DX: E11.9 Type 2 diabetes mellitus without complications (principal); E66.01 Morbid (severe) obesity due to excess calories; Z68.41 Body mass index [BMI] 40.0-44.9, adult; Z71.3 Dietary counseling and surveillance | CPT/HCPCS: 97802 ==

== ENCOUNTER 2024-01-02 09:05 | Emergency (ER) | payer OTHER, SELFPAY ==
--- NOTE | ~2024-01-02 | CT_ITS ---
EXAMINATION: CT ANGIOGRAM CHEST CLINICAL INFORMATION: Acute colitis. Shortness of breath. COMPARISON: None available. TECHNIQUE: Multiple axial images were obtained through the chest after the administration of 100 mL of Omnipaque 350 intravenous contrast without reported immediate complications. Extensive vascular post-processing including two-dimensional and three-dimensional reformatted images were created and reviewed on an independent workstation. This CT examination was performed using dose optimization techniques as appropriate, variously including the following: *Automated exposure control *Adjustment of mA and/or kV according to patient size (this includes techniques or standardized protocols for targeted exams where dose is matched to indication/reason for exam; i.e. extremities or head) *Use of iterative reconstruction technique DLP: 435 mGy-cm FINDINGS: No intraluminal filling defects within the main pulmonary artery or its main branches. No aneurysm or dissection, thoracic aorta. Pulmonary mosaic pattern. No consolidation, pleural effusion or pneumothorax. No bronchiectasis. No honeycombing. No pericardial effusion. Respiratory Airways patent. Multilevel thoracic spondylosis without acute fracture or trauma-related listhesis. No lytic or blastic lesions. CT/CT angio chest PE protocol IMPRESSION: No acute pulmonary artery emboli. No thoracic aortic aneurysm or dissection. Consider pulmonary edema in the correct clinical settings, alternative diagnosis of pneumonitis. Fleischner guidelines were followed. Electronically signed by: Enrique Seo MD 01/02/2024 02:08 PM MERYL AKERS
--- NOTE | ~2024-01-02 | CT_ITS ---
EXAMINATION: CT HEAD WITHOUT CONTRAST CLINICAL INFORMATION: leos COMPARISON: CT dated February 01, 2022 TECHNIQUE: Contiguous axial imaging was performed from the skull base to vertex without intravenous administration of contrast. This CT examination was performed using dose optimization techniques as appropriate, variously including the following: *Automated exposure control *Adjustment of mA and/or kV according to patient size (this includes techniques or standardized protocols for targeted exams where dose is matched to indication/reason for exam; i.e. extremities or head) *Use of iterative reconstruction technique DLP: 721 mGy-cm FINDINGS: No acute intracranial hemorrhage, mass effect, midline shift, hydrocephalus or herniation. Mccauley-white matter differentiation is normal. Posterior cranial fossa contents demonstrated no acute intracranial hemorrhage or mass effect. Sellar/suprasellar region demonstrated no gross masses. Bony calvarium is intact. Skull base is intact. No soft tissue scalp contusion. Tympanic cavities and right mastoid cells are aerated. Hypodensity in the left mastoid tip. No air-fluid levels in the included paranasal sinuses. Calcification in the proximal basilar artery. Calcified plaques in the cavernous opercula segments both ICA. CT/CT head/brain wo IV con IMPRESSION: No acute intracranial hemorrhage. Atherosclerosis disease Acute nonhemorrhagic ischemia/stroke cannot be excluded.. Electronically signed by: Enrique Seo MD 01/02/2024 02:12 PM MERYL
--- NOTE | ~2024-01-02 | CT_ITS ---
EXAMINATION: CT ABDOMEN AND PELVIS WITH CONTRAST CLINICAL INFORMATION: Abdominal pain. Colitis. COMPARISON: CT dated September 25, 2021 TECHNIQUE: Multidetector volumetric images were obtained from the superior aspect of the liver through the pubic symphysis following administration 100 mL of Omnipaque 350 intravenous contrast without reported immediate complications. Sagittal and coronal reformatted images were obtained on the technologist's workstation. Oral contrast: No This CT examination was performed using dose optimization techniques as appropriate, variously including the following: *Automated exposure control *Adjustment of mA and/or kV according to patient size (this includes techniques or standardized protocols for targeted exams where dose is matched to indication/reason for exam; i.e. extremities or head) *Use of iterative reconstruction technique DLP: 1128 mGy-cm FINDINGS: LUNG BASES: Pulmonary patchy groundglass. LIVER, GALLBLADDER, AND BILIARY TREE: Liver measures 15 cm with decreased attenuation enhancement. No focal lesion. Hepatic veins, portal veins and intrahepatic portion of the IVC are patent. Punctate ossifications in the lumen of the gallbladder neck. No pericholecystic fluid collection or gallbladder wall thickening. No intrahepatic or extrahepatic biliary ductal dilatation. PANCREAS: No focal pancreatic mass. No peripancreatic fluid collections. No main pancreatic ductal dilatation. SPLEEN: Measures 9 cm. No focal mass. ADRENAL GLANDS: 3 cm low density measuring 25 Hounsfield units, left adrenal gland. Soft tissue fullness right adrenal gland. KIDNEYS AND URETERS: No renal mass. No hydronephrosis. Normal enhancement pattern of the renal cortex parenchyma. BLADDER: Fluid-filled. GASTROINTESTINAL TRACT: No intestinal obstruction pattern. No ascites. No pneumoperitoneum. No pneumatosis intestinalis. Collapsed splenic colonic flexure. Terminal ileum is normal. I do not see the appendix. Probable small diverticulum in the second portion of the duodenum. ABDOMINAL WALL: Diastases abdominal rectus muscles. LYMPH NODES: No lymphadenopathy. VASCULAR: Mixed plaques in the abdominal aorta wall without aneurysm or dissection. Mixed plaques in the iliac arteries. OSSEOUS STRUCTURES: Osteopenia versus osteoporosis. Multilevel thoracolumbar spondylosis without acute fracture. Sclerosis in the sacroiliac joints. S-shaped curvature with a levoconvex curvature apex at L3-4. CT/CT abdomen pelvis w IV con IMPRESSION: Collapsed splenic colonic flexure. No intestinal obstruction. Cholelithiasis. 3 cm nodule, left adrenal gland may represent adenoma. Posterior mild interstitial lung edema in the correct clinical settings. Fleischner guidelines were followed. Electronically signed by: Enrique Seo MD 01/02/2024 02:05 PM MERYL AKERS
[2024-01-02 09:14] VITALS: BP 150/80; BP 155/72; PULSE 79; PULSE 80; RESP 18; TEMP 37.2; O2SAT 97; O2SAT 98; BMI 47.1
--- NOTE | 2024-01-02 09:36 | ECG_ITS ---
Test Reason : SOB Blood Pressure : / mmHG Vent. Rate : 072 BPM Atrial Rate : 000 BPM P-R Int : 000 ms QRS Dur : 076 ms QT Int : 374 ms P-R-T Axes : 000 -24 002 degrees QTc Int : 409 ms Poor data quality Possible Normal sinus rhythm with 1st degree A-V block Low voltage QRS Abnormal ECG When compared with ECG of 29-AUG-2022 22:51, Nonspecific T wave abnormality now evident in Inferior leads Referred By: Generic ED Physician Electronically Signed By:RICHARD GABRIEL MD
[2024-01-02 10:12] LABS: MANUAL DIFF FLAG NO
[2024-01-02 10:13] LABS: Basophils Percent Auto 0.4 % (0-2); Eosinophils Percent Auto 0.4 % (0-4); Hematocrit 38.9 % (37.0-47.0); Hemoglobin 12.2 g/dl (12.0-16.0); Imm Gran Abs Auto 0.05 X10*3/uL (0.00-0.03); Imm Gran Pct Auto 0.4 % (0.0-0.4); Lymphocytes Absolute Auto 1.5 X10*3/uL (1.2-4.9); Lymphocytes Percent Auto 13.2 % (20-40); Mean Corpuscular HGB Conc 31.4 g/dl (31.0-35.0); Mean Corpuscular Hemoglobin 23.9 pg (27.0-33.0); Mean Corpuscular Volume 76.1 fL (80.0-98.0); Monocytes Absolute Auto 0.6 X10*3/uL (0.1-1.2); Monocytes Percent Auto 4.8 % (2-11); Neutrophils Absolute Auto 9.2 x10*3/uL (2.0-8.3); Neutrophils Percent Auto 80.8 % (45-73); Platelet Count 342 X10*3/uL (160-400); Red Blood Count 5.11 X10*6/uL (4.20-5.50); Red Cell Distribution Width 17.2 % (11.0-16.0); White Blood Count 11.4 X10*3/uL (4.8-10.8)
--- NOTE | 2024-01-02 10:21 | ED.GENADULT ---
HPI - General Adult General Chief complaint: General Medical Stated complaint: upper abd, chest pain, 12 lead non diagnostic Time Seen by Provider: 01/02/24 10:15 Source: patient Mode of arrival: EMS Limitations: no limitations History of Present Illness HPI narrative: This is a 73 years she presented with multiple somatic complain including chest pain, shortness of breath, palpitation, headache, upper abdominal pain symptoms have been ongoing for 1 day Onset (ago): day(s) (1) Location: head, chest and abdomen Radiation: non-radiation Severity: moderate Relieving factors: none Exacerbating factors: none Associated symptoms: denies other symptoms Related Data Home Medications ?Medication ?Instructions ?Recorded ?Confirmed cholecalciferol (vitamin D3) 25 2 tab PO DAILY 02/21/22 02/21/22 mcg (1,000 unit) chewable tablet (Vitamin D3) furosemide 20 mg tablet 1 tab PO DAILY 02/21/22 02/21/22 loratadine 10 mg tablet 1 tab PO DAILY 02/21/22 02/21/22 lorazepam 0.5 mg tablet 1 tab PO BID 02/21/22 02/21/22 losartan 50 mg tablet 1 tab PO BID 02/21/22 02/21/22 metformin 500 mg tablet 1 tab PO QAM 02/21/22 02/21/22 metoprolol tartrate 50 mg tablet 1 tab PO BID 02/21/22 02/21/22 omeprazole 40 mg capsule,delayed 1 cap PO DAILY 02/21/22 02/21/22 release simvastatin 40 mg tablet 1 tab PO DAILY 02/21/22 02/21/22 Previous Rx's ?Medication ?Instructions ?Recorded cyclobenzaprine 10 mg tablet 10 mg PO TID PRN pain #14 tabs 11/18/21 ibuprofen 400 mg tablet 400 mg PO Q6H PRN pain #20 tabs 11/18/21 meclizine 25 mg tablet 25 mg PO DAILY PRN dizziness #20 02/01/22 tabs Allergies Allergy/AdvReac Type Severity Reaction Status Date / Time ondansetron [From Zofran] AdvReac Rash Verified 01/02/24 09:17 Review of Systems Constitutional: Constitutional: Reports no additional constitutional complaints ENT: Reports system reviewed and no additional complaints, except as documented Cardiovascular: Cardiovascular: Reports dyspnea Respiratory: Respiratory: Reports dyspnea PMFSH Past Medical History Attestation statement: The following information was validated with the patient. Medical History Depression Diabetes HTN (hypertension) Social History Social History Alcohol intake: never Patient Tobacco Use Status: Never used Tobacco Smoked in Last 30 Days: No Use of substances other than those prescribed or required for medical reasons: No Advance Directives: Yes Advance Directives Information Provided: Yes Advance Directives on File: No Do you have a plan to hurt others: No Plan Physical Exam ED Vital Signs: Vital Signs - 24 hr 01/02/24 09:14 01/02/24 12:39 01/02/24 16:00 Temperature 98.9 F 98.3 F 98.2 F Pulse Rate 79 82 87 Respiratory Rate 18 15 20 Blood Pressure 155/72 H 131/65 125/67 Pulse Oximetry 97 97 96 Oxygen Delivery Method Room Air Room Air Room Air BMI result Body Mass Index 47.1 She looks well she is not toxic-appearing Const General: cooperative, healthy appearing, comfortable and no acute distress Nutritional Appearance: average body habitus Orientation/consciousness: patient oriented x3 Limitations: no limitations HENMT Head: Yes normal to inspection General nose exam: Normal external nose present Face and sinus: Yes normal facial exam Mouth: Normal oral and palatal mucosa present Throat: Yes posterior oropharynx normal Neck Neck: Yes normal visual inspection Thyroid: Thyroid normal Chest Chest palpation & inspection: normal inspection of the chest Resp Effort & Inspection: normal respiratory effort Auscultation: clear to auscultation bilaterally Cardio Jugular venous distension: no JVD Rate: regular rate Rhythm: regular rhythm GI Inspection: Yes normal to inspection Palpation (GI): Soft to palpation, not firm and nontender General: Yes no CVA tenderness Back/Spine/Pelvis Back: no CVA tenderness Skin General skin exam: no rashes or lesions noted and elasticity normal Lesions: no lesions Rashes: no rashes Hair: normal Neuro General: patient oriented x3 Cranial nerves: Yes CN's II-XII intact bilaterally Course Reevaluation(s) Reevaluation #1: Patient is feeling bilateral this time the workup is essentially normal CT chest was negative CT of the abdomen and pelvis showed no acute abnormality she does have gallstones but no evidence of cholecystitis also LFT on essentially normal. The patient is comfortable to go home, repeat troponin is pending assuming of the repeat trop is negative she can be discharged home and follow-up with PCP Time: 16:26 Medications Administered Discontinued Medications Generic Name Dose Route Start Last Admin Trade Name Kevin PRN Reason Stop Dose Admin Acetaminophen 975 mg 01/02/24 13:49 01/02/24 13:54 Acetaminophen 325 Mg Tablet PO 01/02/24 13:50 975 mg ONCE ONE Administration Iohexol 100 ml 01/02/24 12:01 01/02/24 12:02 Iohexol 350 Mg/Ml 100 Ml Infus..Btl IV 01/02/24 12:02 100 ml ONCE ONE Administration Lorazepam 0.5 mg 01/02/24 15:30 01/02/24 16:17 Lorazepam 0.5 Mg Tablet PO 01/02/24 15:31 0.5 mg ONCE ONE Administration Metoprolol Tartrate 50 mg 01/02/24 15:30 01/02/24 16:17 Metoprolol Tartrate 50 Mg Tablet PO 01/02/24 15:31 50 mg ONCE ONE Administration Protocol Medical Decision Making Medical Decision Making [facility] Narrative: Patient presented with a chief complaint of shortness of breath abdominal pain palpitation will get EKG, labs imaging Took sign-out at the change of shift. Patient's 2nd set of troponin were negative. They were essentially the same. Per discussion with Dr. Rodriguez will discharge patient. Workup was negative CT scan negative. Differential Diagnosis CHF/colitis/diverticulitis Lab Data 01/02/24 10:04 01/02/24 10:04 Labs: Lab Results 01/02/24 01/02/24 01/02/24 Range/Units 10:04 10:50 11:18 WBC 11.4 H (4.8-10.8) X10*3/uL RBC 5.11 (4.20-5.50) X10*6/uL Hgb 12.2 (12.0-16.0) g/dl Hct 38.9 (37.0-47.0) % MCV 76.1 L (80.0-98.0) fL MCH 23.9 L (27.0-33.0) pg MCHC 31.4 (31.0-35.0) g/dl RDW 17.2 H (11.0-16.0) % Plt Count 342 D (160-400) X10*3/uL MPV 10.0 (9.4-12.3) fL Immature Gran % (Auto) 0.4 (0.0-0.4) % Neut % (Auto) 80.8 H (45-73) % Lymph % (Auto) 13.2 L (20-40) % [place] % (Auto) 4.8 (2-11) % Eos % (Auto) 0.4 (0-4) % Baso % (Auto) 0.4 (0-2) % Lymph # (Auto) 1.5 (1.2-4.9) X10*3/uL [place] # (Auto) 0.6 (0.1-1.2) X10*3/uL Eos # (Auto) 0.0 (0.0-0.4) X10*3/uL Baso # (Auto) 0.0 (0.0-0.2) X10*3/uL Abs Immat Gran (auto) 0.05 H (0.00-0.03) X10*3/uL Absolute Neuts (auto) 9.2 H (2.0-8.3) x10*3/uL Absolute Nucleated RBC 0.000 (0.0-0.012) X10*3/uL Nucleated RBC % (auto) 0.0 (0.0-0.2) /100WBC D-Dimer High Sensitivty 378 NG/ML Sodium 140 (135-145) mmol/L Potassium 4.5 (3.3-5.1) mmol/L Chloride 105 (96-108) mmol/L Carbon Dioxide 22 (22-29) mmol/L Anion Gap 18 (12-20) BUN 12 (9-16) mg/dL Creatinine 0.72 (0.5-1.4) mg/dL Estim Creat Clear Calc 92.1 Estimated GFR > 60 POC Glucose 109 (60-115) mg/dL Random Glucose 121 H (60-115) mg/dL Calcium 9.9 (8.4-10.2) mg/dL Magnesium 2.1 (1.6-2.6) mg/dL Total Bilirubin 0.2 (0.0-1.0) mg/dL AST 32 H (5-31) U/L ALT 31 (0-31) U/L Alkaline Phosphatase 187 H (39-117) U/L Troponin I High Sens 6.0 D (<3.5-17.0) ng/L B-Natriuretic Peptide 19 (<100) pg/mL Total Protein 7.4 (6.5-8.0) g/dL Albumin 4.1 (3.5-5.0) g/dL Urine Color Urine Appearance Urine pH (5.0-9.0) Ur Specific [place] (1.005-1.025) Urine Protein (Neg-Trace) mg/dL Urine Glucose (UA) (Negative) mg/dL Urine Ketones (Negative) mg/dL Urine Blood (Negative) Urine Nitrite (Negative) Ur Leukocyte Esterase (Negative) Urine RBC (0-2) /HPF Urine WBC (0-5) /HPF Ur Squamous Epith Cells (0-2) /HPF Urine Bacteria (None Seen) Hyaline Casts (0-2) /LPF 01/02/24 01/02/24 Range/Units 12:42 16:00 WBC (4.8-10.8) X10*3/uL RBC (4.20-5.50) X10*6/uL Hgb (12.0-16.0) g/dl Hct (37.0-47.0) % MCV (80.0-98.0) fL MCH (27.0-33.0) pg MCHC (31.0-35.0) g/dl RDW (11.0-16.0) % Plt Count (160-400) X10*3/uL MPV (9.4-12.3) fL Immature Gran % (Auto) (0.0-0.4) % Neut % (Auto) (45-73) % Lymph % (Auto) (20-40) % [place] % (Auto) (2-11) % Eos % (Auto) (0-4) % Baso % (Auto) (0-2) % Lymph # (Auto) (1.2-4.9) X10*3/uL [place] # (Auto) (0.1-1.2) X10*3/uL Eos # (Auto) (0.0-0.4) X10*3/uL Baso # (Auto) (0.0-0.2) X10*3/uL Abs Immat Gran (auto) (0.00-0.03) X10*3/uL Absolute Neuts (auto) (2.0-8.3) x10*3/uL Absolute Nucleated RBC (0.0-0.012) X10*3/uL Nucleated RBC % (auto) (0.0-0.2) /100WBC D-Dimer High Sensitivty NG/ML Sodium (135-145) mmol/L Potassium (3.3-5.1) mmol/L Chloride (96-108) mmol/L Carbon Dioxide (22-29) mmol/L Anion Gap (12-20) BUN (9-16) mg/dL Creatinine (0.5-1.4) mg/dL Estim Creat Clear Calc Estimated GFR POC Glucose (60-115) mg/dL Random Glucose (60-115) mg/dL Calcium (8.4-10.2) mg/dL Magnesium (1.6-2.6) mg/dL Total Bilirubin (0.0-1.0) mg/dL AST (5-31) U/L ALT (0-31) U/L Alkaline Phosphatase (39-117) U/L Troponin I High Sens 6.2 (<3.5-17.0) ng/L B-Natriuretic Peptide (<100) pg/mL Total Protein (6.5-8.0) g/dL Albumin (3.5-5.0) g/dL Urine Color Yellow Urine Appearance Clear Urine pH 7.5 (5.0-9.0) Ur Specific [place] 1.015 (1.005-1.025) Urine Protein Negative (Neg-Trace) mg/dL Urine Glucose (UA) Negative (Negative) mg/dL Urine Ketones Negative (Negative) mg/dL Urine Blood Negative (Negative) Urine Nitrite Negative (Negative) Ur Leukocyte Esterase Small (1+) H (Negative) Urine RBC 0-2 (0-2) /HPF Urine WBC 6-10 H (0-5) /HPF Ur Squamous Epith Cells 0-2 (0-2) /HPF Urine Bacteria None Seen (None Seen) Hyaline Casts 0-2 (0-2) /LPF Independent Interpretation I performed an independent interpretation of an: EKG Interpretation: EKG [address]-T changes Radiology Impression Discussion of test interpretation with radiology: I have reviewed the radiologist's reading. Discharge Plan Discharge Clinical Impression: Palpitations, Headache Gallstone Qualifiers: Cholecystitis presence: without cholecystitis Biliary obstruction: without biliary obstruction Qualified Code(s): K80.20 - Calculus of gallbladder without cholecystitis without obstruction Patient Disposition: Home, Self-Care Instructions: Gallstones (ED) Additional Instructions: Follow-up with your primary care physician, CT scan of the head was negative, CT scan of the chest showed no blood clot no pneumonia, CT scan of the abdomen shows no bowel obstruction no colitis no diverticulitis you do have gallstones. Prescriptions: No Action cyclobenzaprine 10 mg tablet 10 mg PO TID PRN (Reason: pain) Qty: 14 0RF ibuprofen 400 mg tablet 400 mg PO Q6H PRN (Reason: pain) Qty: 20 0RF losartan 50 mg tablet 1 tab PO BID metformin 500 mg tablet 1 tab PO QAM omeprazole 40 mg capsule,delayed release(DR/EC) 1 cap PO DAILY simvastatin 40 mg tablet 1 tab PO DAILY lorazepam 0.5 mg tablet 1 tab PO BID metoprolol tartrate 50 mg tablet 1 tab PO BID furosemide 20 mg tablet 1 tab PO DAILY loratadine 10 mg tablet 1 tab PO DAILY cholecalciferol (vitamin D3) [Vitamin D3] 25 mcg (1,000 unit) tablet,chewable 2 tab PO DAILY meclizine 25 mg tablet 25 mg PO DAILY PRN (Reason: dizziness) Qty: 20 0RF Referrals: Jamia Carney MD [Primary Care Provider] - 2 days Print Language: Latvian
[2024-01-02 10:32] LABS: B Type Natriuretic Peptide 19 pg/mL (<100)
[2024-01-02 10:44] LABS: Alanine Aminotransferase 31 U/L (0-31); Albumin Level 4.1 g/dL (3.5-5.0); Alkaline Phosphatase 187 U/L (39-117); Anion Gap 18 (12-20); Aspartate Amino Transferase 32 U/L (5-31); Bilirubin Total 0.2 mg/dL (0.0-1.0); Blood Urea Nitrogen 12 mg/dL (9-16); Calcium 9.9 mg/dL (8.4-10.2); Carbon Dioxide 22 mmol/L (22-29); Chloride 105 mmol/L (96-108); Creatinine Clr Calc Pharmacy 92.1; Estimated Glomerular Filt Rate > 60; Glucose Random 121 mg/dL (60-115); Magnesium 2.1 mg/dL (1.6-2.6); Potassium 4.5 mmol/L (3.3-5.1); Sodium 140 mmol/L (135-145); Total Protein 7.4 g/dL (6.5-8.0)
[2024-01-02 10:56] LABS: Glucose, Whole Blood 109 mg/dL (60-115)
[2024-01-02 11:39] LABS: D Dimer High Sensitivity 378 NG/ML
[2024-01-02] MEDS: iohexoL 350 MG/ML 100 ML INFUS..BTL IV (12:02)
[2024-01-02 12:39] VITALS: BP 131/65; PULSE 82; RESP 15; TEMP 36.8; O2SAT 97
[2024-01-02 12:49] LABS: Appearance Urine Clear; Color Urine Yellow; Glucose Urine UA Negative (Negative); Leukocyte Esterase Urine Small (1+) (Negative); Nitrite Urine Negative (Negative); PH 7.5 (5.0-9.0); Specific Gravity - Urine 1.015 (1.005-1.025); UMIC TRIGGER UACC YES; Urine Blood Negative (Negative); Urine Ketones Negative (Negative); Urine Protein Negative (Neg-Trace)
[2024-01-02 12:51] LABS: Bacteria Urine None Seen (None Seen); Hyaline Casts Urine 0-2 /LPF (0-2); RBC Urine 0-2 /HPF (0-2); Squamous Epithelial Cell Urine 0-2 /HPF (0-2); UACC Culture Trigger YES
[2024-01-02] MEDS: Acetaminophen 325 MG TABLET 975 MG PO (13:54)
[2024-01-02 16:00] VITALS: BP 125/67; PULSE 87; RESP 20; TEMP 36.8; O2SAT 96
[2024-01-02] MEDS: Metoprolol Tartrate 50 MG TABLET PO (16:17)
[2024-01-02] MEDS: LORazepam 0.5 MG TABLET PO (16:17)
[2024-01-02 16:26] LABS: Troponin-I High Sensitivity 6.2 ng/L (<3.5-17.0)
[2024-01-02 18:12] VITALS: BP 152/96; PULSE 73; RESP 20; TEMP 37; O2SAT 97
== END 2024-01-02 18:13 | disposition home or self-care (01) ==
PROVIDERS: Emergency Provider Emergency Medicine; PCP Internal Medicine
DX: R00.2 Palpitations (principal); R51.9 Headache, unspecified; K80.20 Calculus of gallbladder without cholecystitis without obstruction; R07.9 Chest pain, unspecified; R06.02 Shortness of breath; R10.10 Upper abdominal pain, unspecified; E11.9 Type 2 diabetes mellitus without complications; I10 Essential (primary) hypertension; Z79.84 Long term (current) use of oral hypoglycemic drugs; Z79.899 Other long term (current) drug therapy
CPT/HCPCS: 36415; 70450; 71275; 74177; 80053; 81001; 82947; 83735; 83880; 84484; 85025; 85379; 87086; 93005; 99284; 99285; Q9967

== ENCOUNTER → 2024-01-02 09:36 | Outpatient (BNV) | payer OTHER, SELFPAY | PROVIDERS: Emergency Provider Emergency Medicine; PCP Internal Medicine; Visit Provider Internal Medicine Cardiovascular Disease | DX: I44.0 Atrioventricular block, first degree (principal) | CPT/HCPCS: 93010 ==

== ENCOUNTER → 2024-01-02 11:03 | Outpatient (BNV) | payer OTHER, SELFPAY | PROVIDERS: Emergency Provider Emergency Medicine; PCP Internal Medicine; Visit Provider Radiology Diagnostic Radiology | DX: K52.9 Noninfective gastroenteritis and colitis, unspecified (principal); R51.9 Headache, unspecified; R10.9 Unspecified abdominal pain | CPT/HCPCS: 70450; 71275; 74177 ==

== ENCOUNTER 2024-07-25 12:05 | Emergency (ER) | payer OTHER, SELFPAY ==
[2024-07-25 12:51] VITALS: BP 156/70; PULSE 79; RESP 16; TEMP 36.7; O2SAT 98; BMI 48.2
--- NOTE | 2024-07-25 12:51 | ED_ITS ---
HPI - Headache General Chief Complaint: Weakness Stated Complaint: Weakness 3 days, headache Related Data Home Medications ?Medication ?Instructions ?Recorded ?Confirmed cholecalciferol (vitamin D3) 25 2 tab PO DAILY 02/21/22 02/21/22 mcg (1,000 unit) chewable tablet (Vitamin D3) furosemide 20 mg tablet 1 tab PO DAILY 02/21/22 02/21/22 loratadine 10 mg tablet 1 tab PO DAILY 02/21/22 02/21/22 lorazepam 0.5 mg tablet 1 tab PO BID 02/21/22 02/21/22 losartan 50 mg tablet 1 tab PO BID 02/21/22 02/21/22 metformin 500 mg tablet 1 tab PO QAM 02/21/22 02/21/22 metoprolol tartrate 50 mg tablet 1 tab PO BID 02/21/22 02/21/22 omeprazole 40 mg capsule,delayed 1 cap PO DAILY 02/21/22 02/21/22 release simvastatin 40 mg tablet 1 tab PO DAILY 02/21/22 02/21/22 Previous Rx's ?Medication ?Instructions ?Recorded cyclobenzaprine 10 mg tablet 10 mg PO TID PRN pain #14 tabs 11/18/21 ibuprofen 400 mg tablet 400 mg PO Q6H PRN pain #20 tabs 11/18/21 meclizine 25 mg tablet 25 mg PO DAILY PRN dizziness #20 02/01/22 tabs Allergies Allergy/AdvReac Type Severity Reaction Status Date / Time ondansetron [From Zofran] AdvReac Rash Verified 07/25/24 12:52 COUNT INCLUDES THE [facility] Past Medical History Medical History Depression Diabetes HTN (hypertension) Social History Social History Alcohol intake: never Patient Tobacco Use Status: Never used Tobacco Advance Directives: No Advance Directives Information Provided: No Physical Exam 2 Vital Signs: Vital Signs: Last Vital Signs Temp 98.1 F 07/25/24 12:51 Pulse 79 07/25/24 12:51 Resp 16 07/25/24 12:51 BP 156/70 H 07/25/24 12:51 Pulse Ox 98 07/25/24 12:51 O2 Del Method Room Air 07/25/24 12:51 BMI result Body Mass Index 48.2 Course Course Course Narrative: This is an RME: Additional HPI, ROS, PE not included below will be deferred to primary provider. RME assessment and note performed by: Goldie Vieira PA-C 73 yo female with PMHx of T2DM, obesity presents to the ED due to headache, fatigue, weakness, nausea that started last night. No sick contacts, recent fall or trauma. Has not taken any OTC medications for pain. PE: No acute distress, non toxic appearing, no focal neurological deficits. Plan: Labs, UA Left without completing treatment Medical Decision Making Lab Data 07/25/24 13:13 07/25/24 13:13 Labs: Lab Results 07/25/24 07/25/24 Range/Units 13:05 13:13 WBC 9.9 (4.8-10.8) X10*3/uL RBC 4.80 (4.20-5.50) X10*6/uL Hgb 11.3 L (12.0-16.0) g/dl Hct 35.9 L (37.0-47.0) % MCV 74.8 L (80.0-98.0) fL MCH 23.5 L (27.0-33.0) pg MCHC 31.5 (31.0-35.0) g/dl RDW 17.6 H (11.0-16.0) % Plt Count 369 (160-400) X10*3/uL MPV 9.7 (9.4-12.3) fL Immature Gran % (Auto) 0.4 (0.0-0.4) % Neut % (Auto) 69.2 (45-73) % Lymph % (Auto) 21.4 (20-40) % [place] % (Auto) 7.7 (2-11) % Eos % (Auto) 0.9 (0-4) % Baso % (Auto) 0.4 (0-2) % Lymph # (Auto) 2.1 (1.2-4.9) X10*3/uL [place] # (Auto) 0.8 (0.1-1.2) X10*3/uL Eos # (Auto) 0.1 (0.0-0.4) X10*3/uL Baso # (Auto) 0.0 (0.0-0.2) X10*3/uL Abs Immat Gran (auto) 0.04 H (0.00-0.03) X10*3/uL Absolute Neuts (auto) 6.8 (2.0-8.3) x10*3/uL Absolute Nucleated RBC 0.000 (0.0-0.012) X10*3/uL Nucleated RBC % (auto) 0.0 (0.0-0.2) /100WBC Sodium 139 (135-145) mmol/L Potassium 4.5 (3.3-5.1) mmol/L Chloride 106 (96-108) mmol/L Carbon Dioxide 25 (22-29) mmol/L Anion Gap 13 (12-20) BUN 7 L (9-16) mg/dL Creatinine 0.62 (0.5-1.4) mg/dL Estim Creat Clear Calc 100.8 Estimated GFR > 60 Random Glucose 97 (60-115) mg/dL Calcium 9.7 (8.4-10.2) mg/dL Magnesium 1.8 (1.6-2.6) mg/dL Total Bilirubin 0.2 (0.0-1.0) mg/dL AST 26 (5-31) U/L ALT 20 (0-31) U/L Alkaline Phosphatase 191 H (39-117) U/L Total Protein 7.2 (6.5-8.0) g/dL Albumin 4.1 (3.5-5.0) g/dL Urine Color Yellow Urine Appearance Clear Urine pH 7.0 (5.0-9.0) Ur Specific [place] <= 1.005 (1.005-1.025) Urine Protein Negative (Neg-Trace) mg/dL Urine Glucose (UA) Negative (Negative) mg/dL Urine Ketones Negative (Negative) mg/dL Urine Blood Negative (Negative) Urine Nitrite Negative (Negative) Ur Leukocyte Esterase Negative (Negative) Influenza Type A (PCR) NEGATIVE (Negative) Influenza Type B (PCR) NEGATIVE (Negative) RSV RNA Qual (PCR) NEGATIVE (Negative) SARS-CoV-2 RNA (RT-PCR) NEGATIVE (Negative) Discharge Plan Discharge Clinical Impression: Headache Patient Disposition: Left W/O Completing Treatment Prescriptions: No Action cyclobenzaprine 10 mg tablet 10 mg PO TID PRN (Reason: pain) Qty: 14 0RF ibuprofen 400 mg tablet 400 mg PO Q6H PRN (Reason: pain) Qty: 20 0RF losartan 50 mg tablet 1 tab PO BID metformin 500 mg tablet 1 tab PO QAM omeprazole 40 mg capsule,delayed release(DR/EC) 1 cap PO DAILY simvastatin 40 mg tablet 1 tab PO DAILY lorazepam 0.5 mg tablet 1 tab PO BID metoprolol tartrate 50 mg tablet 1 tab PO BID furosemide 20 mg tablet 1 tab PO DAILY loratadine 10 mg tablet 1 tab PO DAILY cholecalciferol (vitamin D3) [Vitamin D3] 25 mcg (1,000 unit) tablet,chewable 2 tab PO DAILY meclizine 25 mg tablet 25 mg PO DAILY PRN (Reason: dizziness) Qty: 20 0RF Discharge Date/Time: 07/25/24 17:22
[2024-07-25 13:17] LABS: MANUAL DIFF FLAG NO
[2024-07-25 13:19] LABS: Basophils Percent Auto 0.4 % (0-2); Eosinophils Absolute Auto 0.1 X10*3/uL (0.0-0.4); Eosinophils Percent Auto 0.9 % (0-4); Hematocrit 35.9 % (37.0-47.0); Hemoglobin 11.3 g/dl (12.0-16.0); Imm Gran Abs Auto 0.04 X10*3/uL (0.00-0.03); Imm Gran Pct Auto 0.4 % (0.0-0.4); Lymphocytes Absolute Auto 2.1 X10*3/uL (1.2-4.9); Lymphocytes Percent Auto 21.4 % (20-40); Mean Corpuscular HGB Conc 31.5 g/dl (31.0-35.0); Mean Corpuscular Hemoglobin 23.5 pg (27.0-33.0); Mean Corpuscular Volume 74.8 fL (80.0-98.0); Mean Platelet Volume 9.7 fL (9.4-12.3); Monocytes Absolute Auto 0.8 X10*3/uL (0.1-1.2); Monocytes Percent Auto 7.7 % (2-11); Neutrophils Absolute Auto 6.8 x10*3/uL (2.0-8.3); Neutrophils Percent Auto 69.2 % (45-73); Platelet Count 369 X10*3/uL (160-400); Red Cell Distribution Width 17.6 % (11.0-16.0); White Blood Count 9.9 X10*3/uL (4.8-10.8)
[2024-07-25 13:21] LABS: Appearance Urine Clear; Color Urine Yellow; Glucose Urine UA Negative (Negative); Leukocyte Esterase Urine Negative (Negative); Nitrite Urine Negative (Negative); Specific Gravity - Urine <= 1.005 (1.005-1.025); Urine Blood Negative (Negative); Urine Ketones Negative (Negative); Urine Protein Negative (Neg-Trace)
[2024-07-25 13:36] LABS: Alanine Aminotransferase 20 U/L (0-31); Albumin Level 4.1 g/dL (3.5-5.0); Alkaline Phosphatase 191 U/L (39-117); Anion Gap 13 (12-20); Aspartate Amino Transferase 26 U/L (5-31); Bilirubin Total 0.2 mg/dL (0.0-1.0); Blood Urea Nitrogen 7 mg/dL (9-16); Calcium 9.7 mg/dL (8.4-10.2); Carbon Dioxide 25 mmol/L (22-29); Chloride 106 mmol/L (96-108); Creatinine Clr Calc Pharmacy 100.8; Estimated Glomerular Filt Rate > 60; Glucose Random 97 mg/dL (60-115); Magnesium 1.8 mg/dL (1.6-2.6); Potassium 4.5 mmol/L (3.3-5.1); Sodium 139 mmol/L (135-145); Total Protein 7.2 g/dL (6.5-8.0)
[2024-07-25 14:05] LABS: Influenza A PCR NEGATIVE (Negative); Influenza B PCR NEGATIVE (Negative); Resp Syncy Virus RNA Qual PCR NEGATIVE (Negative); SARS COV2 PCR INHOUSE NEGATIVE (Negative)
--- NOTE | 2024-07-25 17:25 | PC.NURSE ---
2nd no answer [id number]
== END 2024-07-25 17:22 | disposition left against medical advice (07) ==
PROVIDERS: Emergency Provider Emergency Medicine; PCP Internal Medicine
DX: R51.9 Headache, unspecified (principal); E11.9 Type 2 diabetes mellitus without complications; R11.0 Nausea; Z79.899 Other long term (current) drug therapy; Z79.84 Long term (current) use of oral hypoglycemic drugs; Z03.818 Encounter for observation for suspected exposure to other biological agents ruled out
CPT/HCPCS: 0241U; 80053; 81003; 83735; 85025; 99282; 99283

== ENCOUNTER 2024-08-01 17:33 | Emergency (ER) | payer OTHER, SELFPAY ==
--- NOTE | 2024-08-01 | ECG_ITS ---
Test Reason : HYPERTENSION Blood Pressure : */* mmHG Vent. Rate : 87 BPM Atrial Rate : 87 BPM P-R Int : 302 ms QRS Dur : 86 ms QT Int : 368 ms P-R-T Axes : 25 -10 31 degrees QTcB Int : 442 ms Sinus rhythm with 1st degree A-V block Minimal voltage criteria for LVH, may be normal variant ( R in aVL ) Borderline ECG When compared with ECG of 02-Jan-2024 09:46, Nonspecific T wave abnormality, improved in Inferior leads Referred By: Generic ED Physician Electronically Signed By: ZARINA ENAMORADO
[2024-08-01 17:38] VITALS: BP 133/74; PULSE 84; RESP 18; TEMP 36.6; O2SAT 96; BMI 44.6
[2024-08-01 18:23] LABS: Alanine Aminotransferase 21 U/L (0-31); Albumin Level 4.2 g/dL (3.5-5.0); Alkaline Phosphatase 197 U/L (39-117); Amylase 38 U/L (28-100); Anion Gap 13 (12-20); Aspartate Amino Transferase 26 U/L (5-31); Bilirubin Direct < 0.2 mg/dL (0.0-0.5); Bilirubin Total 0.2 mg/dL (0.0-1.0); Blood Urea Nitrogen 10 mg/dL (9-16); Calcium 9.6 mg/dL (8.4-10.2); Carbon Dioxide 25 mmol/L (22-29); Chloride 106 mmol/L (96-108); Creatinine Clr Calc Pharmacy 90.4; Estimated Glomerular Filt Rate > 60; Glucose Random 106 mg/dL (60-115); Lipase 29 U/L (8-78); Magnesium 2.1 mg/dL (1.6-2.6); Potassium 4.3 mmol/L (3.3-5.1); Sodium 140 mmol/L (135-145); Total Protein 7.5 g/dL (6.5-8.0)
[2024-08-01 18:28] LABS: Troponin-I High Sensitivity 3.5 ng/L (<3.5-17.0)
[2024-08-01 21:03] VITALS: BP 126/63; PULSE 95; RESP 20; TEMP 36.6; O2SAT 100
--- NOTE | 2024-08-01 21:20 | ED.GENADULT ---
HPI - General Adult General Chief complaint: General Medical Stated complaint: 164/100 high blood pressure Time Seen by Provider: 08/01/24 21:05 Source: patient Mode of arrival: ambulatory Limitations: no limitations History of Present Illness ED Provider: Dr. Radha Henson HPI narrative: Patient comes to emergency room complaining of hypertension. Patient states that she is compliant with her losartan 50 mg b.i.d.. Patient states that for the last few days, she has noted that she becomes diaphoretic, unclear if she feels anxious or if she is just not feeling well from her blood pressure being high. Patient states that she checks her blood pressure and is usually in the 180s systolic. patient denies chest pain or shortness of breath. Denies headache or blurred vision. Patient states that whenever she comes to the emergency room, her blood pressure comes back to normal. At this time, patient states that she is completely asymptomatic Related Data Home Medications ?Medication ?Instructions ?Recorded ?Confirmed cholecalciferol (vitamin D3) 25 2 tab PO DAILY 02/21/22 02/21/22 mcg (1,000 unit) chewable tablet (Vitamin D3) furosemide 20 mg tablet 1 tab PO DAILY 02/21/22 02/21/22 loratadine 10 mg tablet 1 tab PO DAILY 02/21/22 02/21/22 lorazepam 0.5 mg tablet 1 tab PO BID 02/21/22 02/21/22 losartan 50 mg tablet 1 tab PO BID 02/21/22 02/21/22 metformin 500 mg tablet 1 tab PO QAM 02/21/22 02/21/22 metoprolol tartrate 50 mg tablet 1 tab PO BID 02/21/22 02/21/22 omeprazole 40 mg capsule,delayed 1 cap PO DAILY 02/21/22 02/21/22 release simvastatin 40 mg tablet 1 tab PO DAILY 02/21/22 02/21/22 Previous Rx's ?Medication ?Instructions ?Recorded cyclobenzaprine 10 mg tablet 10 mg PO TID PRN pain #14 tabs 11/18/21 ibuprofen 400 mg tablet 400 mg PO Q6H PRN pain #20 tabs 11/18/21 meclizine 25 mg tablet 25 mg PO DAILY PRN dizziness #20 02/01/22 tabs hydrochlorothiazide 25 mg tablet 25 mg PO DAILY #60 tabs 08/01/24 Allergies Allergy/AdvReac Type Severity Reaction Status Date / Time ondansetron [From Zofran] AdvReac Rash Verified 08/01/24 17:40 Review of Systems Review of Systems: Constitutional : No Weight loss, No Fever, No Chills, No Night Sweats, No Fatigue, No Malaise ENT/Mouth : No Hearing loss, No Ear Pain, No Nasal Congestion, No Sinus Pain, No Hoarseness, No sore throat, No Rhinorrhea, No Swallowing Difficulty Eyes: No Eye Pain, No Swelling, No Redness, No Foreign Body, No Discharge, No Vision Changes Cardiovascular : Complaining of intermittent spikes of high blood pressure, No Chest Pain, No SOB, No Dyspnea on Exertion, No Orthopnea, No Edema, No Palpitations Respiratory : No Cough, No Sputum, No Wheezing, No Smoke Exposure, No Dyspnea Gastrointestinal : No Nausea, No Vomiting, No Diarrhea, No Constipation, No abdominal Pain, No Hematochezia, No Melena Genitourinary : no irregular bleeding, No Dysuria, No Urinary Frequency, No Hematuria, No Urinary Incontinence, No Urgency, No Flank Pain, No Urinary Flow Changes, No Hesitancy Musculoskeletal : No joint pain, No Myalgias, No Joint Swelling Skin : No Skin Lesions, No rash Neuro : No Weakness, No Numbness, No Paresthesias, No Loss of Consciousness, No Dizziness, No Headache Psych : No Anxiety/Panic, No Depression, No SI/HI/AH/VH, No Social Issues, Heme/Lymph: No Bruising, No Bleeding,No Lymphadenopathy Endocrine : No Polyuria, No Polydipsia, No Temperature Intolerance [facility] Past Medical History Medical History Depression Diabetes HTN (hypertension) Social History Social History Alcohol intake: never Patient Tobacco Use Status: Never used Tobacco Advance Directives: No Advance Directives Information Provided: Yes Physical Exam ED Vital Signs: Vital Signs - 24 hr 08/01/24 17:38 08/01/24 21:03 08/01/24 22:37 Temperature 98 F 97.8 F 97.8 F Pulse Rate 84 95 80 Respiratory Rate 18 20 16 Blood Pressure 133/74 126/63 137/66 Pulse Oximetry 96 100 96 Oxygen Delivery Method Room Air Room Air BMI result Body Mass Index 44.6 Const Other: Appearance: Alert. Oriented X3. No acute distress. Eyes: Pupils equal, round and reactive to light. ENT: Pharynx normal. Neck: Normal inspection. Neck supple. No lymph nodes noted. No crepitus CVS: Normal heart rate and rhythm. Pulses normal. Normal S1 and S2, current blood pressure 126/63 Respiratory: No respiratory distress. Breath sounds normal. No Wheezing. No rales Abdomen: Soft and nontender. No rigidity. No distention. Skin: Skin warm and dry. Normal skin color. Normal skin turgor. Extremities: No lower extremity edema. No Lacerations. No Rash Neuro: Oriented X 3. No motor deficit. No sensory deficit. Moving all extremities. No slurred speech. CN 2 through 12 grossly intact Psych: calm, cooperative, normal affect Course Course Course Narrative: patient states that once she gets to the emergency room, her blood pressure comes back to normal. Patient states this has happened multiple times. According to the patient, yesterday her blood pressure was in the 180s, paramedics were called, they checked her blood pressure and it matched her home monitor after a few minutes, patient's blood pressure started decreasing back to normal and therefore did not come. At this time, patient's blood pressure 126/63, patient asymptomatic Medical Decision Making Medical Decision Making [facility] Narrative: my interpretation of EKG: Normal sinus rhythm, heart rate 87, no ST segment depression or elevation, no T-wave inversion, QTC 442 Lab Data 08/01/24 21:28 08/01/24 17:58 Labs: Lab Results 08/01/24 08/01/24 Range/Units 17:58 21:28 WBC 11.5 H (4.8-10.8) X10*3/uL RBC 5.10 (4.20-5.50) X10*6/uL Hgb 11.9 L (12.0-16.0) g/dl Hct 37.7 (37.0-47.0) % MCV 73.9 L (80.0-98.0) fL MCH 23.3 L (27.0-33.0) pg MCHC 31.6 (31.0-35.0) g/dl RDW 18.1 H (11.0-16.0) % Plt Count 440 H (160-400) X10*3/uL MPV 9.5 (9.4-12.3) fL Immature Gran % (Auto) 0.3 (0.0-0.4) % Neut % (Auto) 69.9 (45-73) % Lymph % (Auto) 22.9 (20-40) % [place] % (Auto) 6.0 (2-11) % Eos % (Auto) 0.6 (0-4) % Baso % (Auto) 0.3 (0-2) % Lymph # (Auto) 2.6 (1.2-4.9) X10*3/uL [place] # (Auto) 0.7 (0.1-1.2) X10*3/uL Eos # (Auto) 0.1 (0.0-0.4) X10*3/uL Baso # (Auto) 0.0 (0.0-0.2) X10*3/uL Abs Immat Gran (auto) 0.04 H (0.00-0.03) X10*3/uL Absolute Neuts (auto) 8.0 (2.0-8.3) x10*3/uL Absolute Nucleated RBC 0.000 (0.0-0.012) X10*3/uL Nucleated RBC % (auto) 0.0 (0.0-0.2) /100WBC Sodium 140 (135-145) mmol/L Potassium 4.3 (3.3-5.1) mmol/L Chloride 106 (96-108) mmol/L Carbon Dioxide 25 (22-29) mmol/L Anion Gap 13 (12-20) BUN 10 (9-16) mg/dL Creatinine 0.71 (0.5-1.4) mg/dL Estim Creat Clear Calc 90.4 Estimated GFR > 60 Random Glucose 106 (60-115) mg/dL Calcium 9.6 (8.4-10.2) mg/dL Magnesium 2.1 (1.6-2.6) mg/dL Total Bilirubin 0.2 (0.0-1.0) mg/dL Direct Bilirubin < 0.2 (0.0-0.5) mg/dL AST 26 (5-31) U/L ALT 21 (0-31) U/L Alkaline Phosphatase 197 H (39-117) U/L Troponin I High Sens 3.5 (<3.5-17.0) ng/L Total Protein 7.5 (6.5-8.0) g/dL Albumin 4.2 (3.5-5.0) g/dL Amylase 38 (28-100) U/L Lipase 29 (8-78) U/L Discharge Plan Discharge Clinical Impression: Hypertension Patient Disposition: Home, Self-Care Instructions: Chronic Hypertension (ED) Additional Instructions: Please follow-up with your primary care physician tomorrow. If you have any worsening or new symptoms, please return to the emergency room or call 911 Prescriptions: New hydrochlorothiazide 25 mg tablet 25 mg PO DAILY Qty: 60 0RF No Action cyclobenzaprine 10 mg tablet 10 mg PO TID PRN (Reason: pain) Qty: 14 0RF ibuprofen 400 mg tablet 400 mg PO Q6H PRN (Reason: pain) Qty: 20 0RF losartan 50 mg tablet 1 tab PO BID metformin 500 mg tablet 1 tab PO QAM omeprazole 40 mg capsule,delayed release(DR/EC) 1 cap PO DAILY simvastatin 40 mg tablet 1 tab PO DAILY lorazepam 0.5 mg tablet 1 tab PO BID metoprolol tartrate 50 mg tablet 1 tab PO BID furosemide 20 mg tablet 1 tab PO DAILY loratadine 10 mg tablet 1 tab PO DAILY cholecalciferol (vitamin D3) [Vitamin D3] 25 mcg (1,000 unit) tablet,chewable 2 tab PO DAILY meclizine 25 mg tablet 25 mg PO DAILY PRN (Reason: dizziness) Qty: 20 0RF Print Language: Chinese
[2024-08-01 21:31] LABS: MANUAL DIFF FLAG NO
[2024-08-01 21:32] LABS: Basophils Percent Auto 0.3 % (0-2); Eosinophils Absolute Auto 0.1 X10*3/uL (0.0-0.4); Eosinophils Percent Auto 0.6 % (0-4); Hematocrit 37.7 % (37.0-47.0); Hemoglobin 11.9 g/dl (12.0-16.0); Imm Gran Abs Auto 0.04 X10*3/uL (0.00-0.03); Imm Gran Pct Auto 0.3 % (0.0-0.4); Lymphocytes Absolute Auto 2.6 X10*3/uL (1.2-4.9); Lymphocytes Percent Auto 22.9 % (20-40); Mean Corpuscular HGB Conc 31.6 g/dl (31.0-35.0); Mean Corpuscular Hemoglobin 23.3 pg (27.0-33.0); Mean Corpuscular Volume 73.9 fL (80.0-98.0); Mean Platelet Volume 9.5 fL (9.4-12.3); Monocytes Absolute Auto 0.7 X10*3/uL (0.1-1.2); Neutrophils Percent Auto 69.9 % (45-73); Platelet Count 440 X10*3/uL (160-400); Red Cell Distribution Width 18.1 % (11.0-16.0); White Blood Count 11.5 X10*3/uL (4.8-10.8)
[2024-08-01 22:37] VITALS: BP 137/66; PULSE 80; RESP 16; TEMP 36.6; O2SAT 96
[2024-08-01 23:15] VITALS: BP 147/79; PULSE 90; RESP 18; TEMP 36.6; O2SAT 96
[2024-08-01 23:29] VITALS: BP 147/79; PULSE 90; RESP 18; TEMP 36.6; O2SAT 96
== END 2024-08-01 23:35 | disposition home or self-care (01) ==
PROVIDERS: Emergency Provider Emergency Medicine
DX: F41.9 Anxiety disorder, unspecified (principal); I44.0 Atrioventricular block, first degree; I10 Essential (primary) hypertension; Z79.899 Other long term (current) drug therapy
CPT/HCPCS: 36415; 80053; 80076; 82150; 82248; 83690; 83735; 84484; 85025; 93005; 99284

== ENCOUNTER → 2024-08-01 17:49 | Outpatient (BNV) | payer OTHER, SELFPAY | PROVIDERS: Emergency Provider Emergency Medicine; Visit Provider Internal Medicine | DX: I44.0 Atrioventricular block, first degree (principal) | CPT/HCPCS: 93010 ==